=== PATIENT | male | born 1970 | race Caucasian/White ===

== ENCOUNTER 2017-02-26 16:52 | Inpatient (IN) | payer OTHER, MEDICAID ==
--- NOTE | 2017-02-26 16:55 | EDPHY ---
Mental Health General Narrative: CHIEF COMPLAINT: M1 hold HISTORY OF PRESENT ILLNESS: 46-year-old male presents emergency department with police on an M1 hold. Patient's father called the police to do a welfare check on his son. He has a history of mental illness and recent hospitalization to [facility]. He has not talked to his son in several days which is unusual. Police found the patient up in [place]. He is rambling, not making sense, appears to be gravely disabled per police. Patient is very anxious on my exam. He reports a strong smell of nail Upper Sor[place] that he has had for the last several days, he does not answer my question when asked about auditory and visual hallucinations. He denies suicidal ideations. He denies drug or alcohol use, no cigarette smoking. REVIEW OF SYSTEMS: Unable to obtain due to mental status Physical Exam Gen: Awake, disheveled, oriented HEENT: PERRL, dry mucous membranes NECK: no meningismus CV: regular rate and regular rhythm PULM: CTAB, no wheezes ABDOMEN: soft, non tender to palpation, BS present BACK: No CVA tenderness NEURO: Follows commands, no facial asymmetry, moves all extremities EXTREMITIES: normal appearing SKIN: no rash or break in skin on exposed skin PSYCH: Anxious, nonsensical. Previous Psychiatric History: previous inpatient psychiatric admission, schizophrenia, bipolar History Review: I obtained additional history from the patient's family Smoking Status: Never smoked Time Patient Placed on M1 Hold: 16:50 Medical Decision Making: Pt has been evaluated by [facility]. He will be hospitalized for psychiatric stabilization. Pt accepted at [address] [place] [address]. Time Medically Cleared for Psychiatric Evaluation: 19:00 Time Accepted for Transfer to Inpatient Psychiatric Care: 22:15 Course: awaiting transfer to inpatient facility - Objective Vital Signs: Initial Vital Signs Temperature (C) 36.5 C 02/26/17 16:53 Heart Rate 86 02/26/17 16:53 Respiratory Rate 16 02/26/17 16:53 Blood Pressure 121/95 H 02/26/17 16:53 O2 Sat (%) 96 02/26/17 16:53 O2 Delivery Mode Room Air Allergies/Adverse Reactions: No Known Allergies Allergy (Unverified 02/26/17 17:00) Home Medications: Medication Instructions Recorded clonazePAM [Klonopin (RX)] 0.5 mg PO TID 11/12/12 Medications Given: Discontinued Medications Acetaminophen (Tylenol) 1,000 mg PO EDNOW ONE Stop: 02/26/17 19:29 Last Admin: 02/26/17 19:37 Dose: 1,000 mg Lidocaine (Lidoderm 5%) 1 ea TD EDNOW ONE Stop: 02/26/17 19:29 Last Admin: 02/26/17 19:37 Dose: 1 ea Laboratory Results: Laboratory Results 02/26/17 17:17 02/26/17 17:17 02/26/17 02/26/17 02/26/17 17:23 17:17 17:17 WBC 7.44 10^3/uL 10^3/uL (3.80-9.50) RBC 4.67 10^6/uL 10^6/uL (4.40-6.38) Hgb 15.3 g/dL g/dL (13.7-17.5) Hct 42.6 % % (40.0-51.0) MCV 91.2 fL fL (81.5-99.8) MCH 32.8 pg pg (27.9-34.1) MCHC 35.9 g/dL g/dL (32.4-36.7) RDW 12.5 % % (11.5-15.2) Plt Count 218 10^3/uL 10^3/uL (150-400) MPV 11.1 fL fL (8.7-11.7) Neut % (Auto) 66.4 % % (39.3-74.2) Lymph % (Auto) 21.8 % % (15.0-45.0) Garrard % (Auto) 9.9 % % (4.5-13.0) Eos % (Auto) 1.1 % % (0.6-7.6) Baso % (Auto) 0.7 % % (0.3-1.7) Nucleat RBC Rel Count 0.0 % % (0.0-0.2) Absolute Neuts (auto) 4.94 10^3/uL 10^3/uL (1.70-6.50) Absolute Lymphs (auto) 1.62 10^3/uL 10^3/uL (1.00-3.00) Absolute Monos (auto) 0.74 10^3/uL 10^3/uL (0.30-0.80) Absolute Eos (auto) 0.08 10^3/uL 10^3/uL (0.03-0.40) Absolute Basos (auto) 0.05 10^3/uL 10^3/uL (0.02-0.10) Absolute Nucleated RBC 0.00 10^3/uL 10^3/uL (0-0.01) Immature Gran % 0.1 % % (0.0-1.1) Immature Gran # 0.01 10^3/uL 10^3/uL (0.00-0.10) Sodium 139 mEq/L mEq/L (134-144) Potassium 3.6 mEq/L mEq/L (3.5-5.2) Chloride 104 mEq/L mEq/L (97-110) Carbon Dioxide 15 mEq/l L mEq/l (22-31) Anion Gap 20 mEq/L H mEq/L (8-16) BUN 17 mg/dL mg/dL (7-23) Creatinine 0.8 mg/dL mg/dL (0.7-1.3) Estimated GFR > 60 Glucose 85 mg/dL mg/dL (70-100) Calcium 9.7 mg/dL mg/dL (8.5-10.4) Urine Opiates Screen NEGATIVE (NEGATIVE) Urine Barbiturates NEGATIVE (NEGATIVE) Ur Phencyclidine Scrn NEGATIVE (NEGATIVE) Ur Amphetamine Screen NEGATIVE (NEGATIVE) U Benzodiazepines Scrn NEGATIVE (NEGATIVE) Urine Cocaine Screen NEGATIVE (NEGATIVE) U Marijuana (THC) Screen NEGATIVE (NEGATIVE) Ethyl Alcohol < 10 mg/dL mg/dL (0-10) Departure - Departure Disposition: [facility] IP Clinical Impression: Acute psychosis Condition: Fair Referrals: Patient,NotPresent [Primary Care Provider] - As per Instructions
[2017-02-26 17:49] LABS: % IMMATURE GRANULYOCYTES 0.1 % (0.0-1.1); ABSOLUTE IMMATURE GRANULOCYTES 0.01 10^3/uL (0.00-0.10); ADD DIFF? NO; ADD MORPH? NO; ADD SCAN? NO; ATYPICAL LYMPHOCYTE FLAG 10 (0-99); FRAGMENT RBC FLAG 0 (0-99); HEMATOCRIT 42.6 % (40.0-51.0); HEMOGLOBIN 15.3 g/dL (13.7-17.5); LEFT SHIFT FLG 0 (0-99); LIPEMIA HEMOLYSIS FLAG 90 (0-99); MEAN CELL HEMOGLOBIN 32.8 pg (27.9-34.1); MEAN CELL HEMOGLOBIN CONCENTR. 35.9 g/dL (32.4-36.7); MEAN CELL VOLUME 91.2 fL (81.5-99.8); MEAN PLATELET VOLUME 11.1 fL (8.7-11.7); PLATELET CLUMPS FLAG 0 (0-99); PLATELET COUNT 218 10^3/uL (150-400); RED BLOOD CELL COUNT 4.67 10^6/uL (4.40-6.38); RED CELL DISTRIBUTION WIDTH 12.5 % (11.5-15.2)
[2017-02-26 18:08] LABS: ANION GAP 20 mEq/L (8-16); CALCIUM 9.7 mg/dL (8.5-10.4); CARBON DIOXIDE 15 mEq/l (22-31); CHLORIDE 104 mEq/L (97-110); CREATININE 0.8 mg/dL (0.7-1.3); ETHANOL SERUM < 10 mg/dL (0-10); GLOMERULAR FILTRATION RATE > 60; GLUCOSE 85 mg/dL (70-100); POTASSIUM 3.6 mEq/L (3.5-5.2); SODIUM 139 mEq/L (134-144)
[2017-02-26] MEDS ORDERED: LIDOCAINE 5% 1 EA PATCH TD ONE (19:28)
[2017-02-26] MEDS ORDERED: ACETAMINOPHEN 500 MG TAB PO ONE (19:28)
[2017-02-26] MEDS ORDERED: PATCH REMOVAL 1 EA PATCH TD SCH (21:00)
[2017-02-26] MEDS ORDERED: OLANZapine DISINTEGR 5 MG TAB PO ONE (22:09)
[2017-02-27] MEDS ORDERED: MAGNESIUM HYDROXIDE 30 ML UDCUP PO PRN (00:30)
[2017-02-27] MEDS ORDERED: MAG HYDROX/AL HYDROX/SIMETH 30 ML UDCUP PO PRN (00:30)
[2017-02-27] MEDS ORDERED: NICOTINE POLACRILEX 2 MG GUM B PRN (00:30)
[2017-02-27] MEDS ORDERED: OLANZapine DISINTEGR 10 MG TAB PO PRN (00:31)
[2017-02-27] MEDS ORDERED: PATCH REMOVAL 1 EA PATCH TD ONE ×2 (08:00)
[2017-02-27] MEDS: ACETAMINOPHEN 325 MG TAB PO PRN (10:53)
[2017-02-27] MEDS: OLANZapine DISINTEGR 10 MG TAB PO SCH (19:41)
--- NOTE | 2017-02-27 19:43 | BCON ---
[f rep st] BEHAVIORAL HEALTH CONSULTATION INTERNAL MEDICINE CONSULTATION REFERRING PHYSICIAN: Dr. Castaneda REASON FOR REFERRAL: Medical clearance for inpatient behavioral health stay. HISTORY OF PRESENT ILLNESS: The patient was found by police in [facility] and not making sense. The police judged him to be gravely disabled. They had been called by his father for a welfare check. He had had a recent psychiatric hospitalization at [facility]. He was evaluated in the emergency department by the mental health team and admitted for further psychiatric care. He is currently without any medical complaints though he reports he had an episode of chest tightness this morning when he got up. He does not furnish anymore details regarding the episode. PAST MEDICAL HISTORY: 1. Mental health issues with diagnoses of schizoaffective disorder and bipolar disorder in the chart. 2. History of alcohol and cocaine abuse. 3. History of cervical degenerative disk disease. PAST SURGICAL HISTORY: 1. C5-C6 cervical fusion. 2. Bilateral knee anterior cruciate ligament reconstructions. MEDICATIONS: He has been noncompliant with psychiatric medications. SOCIAL HISTORY: He is a nonsmoker and not currently using alcohol so far as can be gleaned from the medical records. He is currently homeless and living out of his truck. He has been employed doing [employer] work in the past. FAMILY HISTORY: Noncontributory. ALLERGIES: There are no known drug allergies. REVIEW OF SYSTEMS: Very limited. He reports episode of chest tightness this morning. He denies pain. He denies current dyspnea, cough, chest pain, or palpitations. Otherwise, a 10-point review of systems to the extent that it could be obtained was unremarkable. PHYSICAL EXAM: VITAL SIGNS: Blood pressure is 122/84, heart rate is 72, respiratory rate is 16, oxygen saturation is 95% on room air. Temperature is 36.7 degrees centigrade. His weight is 74.8 kg for a body mass index of 24.4. GENERAL: This is a well-nourished, well-developed man, wearing a green suicide smock, cooperative and in no acute distress but appearing distracted possibly by internal stimulation and with very little speech. HEENT: Extraocular movements are intact. Pupils are equal, round, and reactive to light. Mucous membranes are moist. Dentition is in good condition. Airway is uncrowded, Mallampati class 1. NECK: Supple. HEART: There is a regular rate and rhythm with no murmurs, rubs, or gallops. LUNGS: Clear to auscultation bilaterally. ABDOMEN: Soft, nontender, nondistended with normoactive bowel sounds. EXTREMITIES: There is no cyanosis, clubbing, or edema. Radial and dorsalis pedis pulses are 2+ bilaterally. NEUROLOGIC: He is alert, unable to systems checkout mechanic orientation. He follows commands. Cranial nerves 2-12 are grossly intact. There is no focal weakness. Sensation is intact to light touch and gait is within normal limits. There is no pronator drift. SKIN: There is a laceration on his left great toe on the dorsal aspect, approximately 2 cm proximal to the toenail and 0.5 cm distal to the toenail. The nail is intact and there is no bruising under the nail. There is no erythema and no drainage. LABORATORY STUDIES: Drawn in the emergency department. CBC was entirely within normal limits. Serum chemistry revealed a low carbon dioxide at 15 with an elevated anion gap of 20. Otherwise, renal function and electrolytes were within normal limits. Toxicology screen in the serum was negative for ethyl alcohol and in the urine was negative for any substances of abuse. Labs were drawn at [facility] with the results in the [facility] database. Early to mid January, serum chemistry was notable for dyslipidemia with cholesterol of 246, LDL of 189 and HDL of 40. TSH at that time was normal at 0.795. ASSESSMENT AND RECOMMENDATIONS: 1. Mental health issues, pending further evaluation and management per Psychiatry and the mental health team. 2. Altered mental status. If his attention and communication do not improve with psychiatric care, might consider a head CT; however, his neurologic exam otherwise is quite normal with no findings consistent with an intracranial mass. 3. Dyslipidemia. By [place] criteria, his 10-year cardiovascular risk is 4 % to 7% so it is unclear whether or not he would benefit from a cholesterol lowering medication. In any case, until his psychosocial situation is stabilized, it is unclear whether he would be compliant. Advise followup after discharge with the primary care provider. Unclear what to make of his episode of chest tightness this morning as further history is unobtainable. If he did have existing coronary artery disease the indication to treat cholesterol would be different. Consider an EKG if he has recurrent symptoms. 4. Left great toe laceration. There are no signs or symptoms of infection. Expect it to continue to heal and advise covering it with a bandage and inspecting it every day with a dressing change to observe for any signs or symptoms of infection. I see no medical contraindications to the patient's continued stay on the inpatient behavioral health unit or to any psychiatric medications or procedures. Thank you very much for including me in the care of the patient and please do not hesitate to contact me or the hospitalist service should there be need for further medical evaluation. /[id number]/MODL MTDD
--- NOTE | 2017-02-27 19:58 | BAPA ---
[f rep st] ADMITTING PSYCHIATRIC ASSESSMENT Corrected report DATE OF ADMISSION: 02/26/2017 CHIEF COMPLAINT: "I am here because my back hurts. I called my mom and dad and I have been having a hard time at work." HISTORY OF PRESENT ILLNESS: The patient is a 46-year-old single, unemployed, male brought into [facility] ED after being found in [place]. He was unable to appropriately communicate and appeared to be disoriented, confused, unable to answer simple questions. The [facility] placed the patient on M1 due to being gravely disabled. The patient was unable to answer questions posed, therefore most of the information provided in the ED report was obtained by the patient's father. The patient's father was the one who called the police to do a welfare check on his son. According to the father, the patient has a history of mental illness and recent hospitalization at [facility]. Father had not talked to his son in several days. Upon examination in the ED, the patient was very anxious. He reports smelling nail romanian for the past several days. He did not want to answer questions when asked about auditory and visual hallucinations, though he did deny suicidal ideations. He also denied any drug or alcohol use and cigarette smoking. When psychiatrist met with the patient on the unit, he was similarly disinclined to engage. He was uncooperative. MD asked patient several times if he would be willing to sit down and answer a few questions. Patient said, "I don't have time to talk to you." Other times he was pacing restlessly on the unit and he was repeatedly shuffling the newspaper and carrying it from his room back and forth to the dining room. When MD tried to intervene to interview patient, he got up abruptly and left the dining area and went back to his room, turned around, and said, "I don't want to talk to you now, go away." Most of the information in this psychiatric assessment comes from medical record, including the [facility] triage evaluation that was done in the [facility] ED, as well as from the emergency department report by the ED physician, Marcy Kam. During his triage assessment, when asked regarding mental health diagnosis, medications, and hospitalizations, Father told the [facility] access rep that patient was originally diagnosed with bipolar disorder, then within the last few years he was diagnosed with schizoaffective disorder. Father recently had the patient hospitalized at [facility]. He was released just prior to the 16 of February weekend after 10-12 days of inpatient treatment. Father stated he had numerous hospitalizations in the past. PAST PSYCHIATRIC HISTORY: Father states that the patient has been hospitalized numerous times; however, he was not able to provide the name of any hospitals or dates except the [facility] admission which happened at the end of January and patient was discharged just prior to the 16 of February. Father did know that the patient attended treatment as an outpatient for a short period of time but says, "But I don't know anything about that right now." When asked about hallucinations and delusions, Father denied a history of violence and denied homicidal ideations or thoughts. Patient states he "has nothing" in regard to a psychiatrist, therapist, or any medications at home. Father states that the patient was prescribed medications numerous times, including upon his release from [facility]; however, the patient has not been taking his medications. Father could not remember the names or dosages of any of the medications that the patient was given upon discharge from [facility]. Father also said that the patient has been given medications for cholesterol and high blood pressure in the past, as well as "some mood stabilizers". Neither the patient nor Father could remember the names of any of his current or recent medications. Patient states that he has not been able to sleep for 3 days. When asked about changes in weight or appetite, patient says, "I don't care." Father states that patient would be noncompliant for medications due to weight gain in the past. ALLERGIES: In regard to allergies, patient says, "Not that I know of." Patient denied any allergies. Father stated that he was unaware of any allergies. CURRENT MEDICATIONS: Patient was recently prescribed medications during his hospitalization at [facility] and discharged prior to the 16 of February. On "a couple of mood stabilizers", according to Father, but neither Father nor patient can remember the names or doses of any of his medications. PAST MEDICAL HISTORY: When asked about previous medical or surgical history, patient stated, "I don't know." When asked about medical or surgical concerns, patient denied anything, although according to the ED physician, patient did report chronic back pain and was given a lidocaine patch in the ED for that, but that is not a usual prescription that the patient takes. SUBSTANCE USE HISTORY: Patient denied alcohol and drug use. Denied cigarette smoking. Father stated that the patient "drinks a couple of beers now and then ". FAMILY HISTORY: Father stated that patient's biological mother and father are . Patient reported 1 brother. When asked about psychiatric and substance abuse history in the family, patient says, "I don't know of that." SOCIAL HISTORY: Patient was not forthcoming with personal information in the emergency department, but Father was able to state that patient grew up in a home with his biological mother and father and 1 brother. The patient's biological father and mother are currently . Father states that patient was "normal until around 21 years old". However, Father stated that patient has reported noticing issues with his mental health when he was in high school. Patient is single and does not have any biological children. Father noted that "he does not have any trouble with getting a girlfriend". Patient is currently living with his father; however, the father stated that he does not live with the patient and the father states that the patient has been living out of the patient's truck since he was asked to leave the room he was renting for not being able to pay rent. Father says that the patient was supposed to move in with him for a few days after being released from [facility]; however, instead the patient left and went back to [facility] and has been living out of his truck. Father called the [facility]'s Department to do a welfare check and they found the patient in [place] in the conditions that he was brought to the ED. The patient states he does not have any support system other than his father. He states he has been "isolated" for a long time and "it has been too long since I have talked to my friends". Father states that the patient had been camping with friends over the 16 of February weekend and that might have been why he was in [place]. EDUCATIONAL HISTORY: Patient attained his high school diploma. WORK HISTORY: Patient originally stated that he has been having a hard time at work. He then stated that he was looking for part-time work and was currently unemployed. 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 LEGAL HISTORY: Patient denied any arrests or legal charges. SCIENTOLOGY AND SPIRITUAL: Patient reports "I used to go to [employer] a lot." ADMISSION LABS: Patient was afebrile, his heart rate was 86, respiratory rate was 16, blood pressure was 121/95. His white cell count was 7.44, hemoglobin was 15.3, hematocrit was 43.6, platelet count was 218. Sodium was 139, potassium was 3.6, chloride was 104, BUN was 17, creatinine was 0.8. His urine toxicology screen was negative for everything. His blood alcohol level was less than 10. MENTAL STATUS EXAMINATION: Patient presents disheveled, unkempt. He is wearing a green hospital gown. He is pacing restlessly, will not stop or make direct eye contact. Refuses to engage with the MD interviewer despite repeated requests to sit down and talk. Patient says, "I don't have time for you, go away." His affect is irritable, labile, anxiety. Mood congruent. When asked about his mood, patient says "I'm okay." Thought process is disorganized, confused, nonsensical. Speech is tangential, illogical. Thought content, unable to assess although patient does deny SI/HI. Does not respond to any questions regarding active psychotic symptoms. Insight is poor and judgment is impaired. IMPRESSION: This is a 46-year-old male who presented to the emergency department on 02/26/2017, placed on an M1 hold by the [facility] Department. Patient was recently discharged from [facility] [place], where he was treated for 10-12 days for schizoaffective disorder and placed on multiple mood stabilizers, according to his father. Upon discharge, the patient went off his medications, decompensated, and was found wondering aimlessly and disorganized, confused, talking nonsensically in [place] and brought to the emergency department. Patient has been uncooperative and refusing to answer questions, both in the emergency department and during his first day on the inpatient unit. Schizoaffective disorder, financial problems, marginal support, family conflict , homeless, recent loss of job. PLAN: 1. Admit to behavioral health service inpatient unit on an M1 hold. 2. Monitor for safety and place on suicide precautions. 3. Patient was given 1 dose of Zyprexa in the ED for agitation and confusion secondary to apparent psychosis. Will order scheduled dose of Zyprexa 10 mg p.o. at bedtime. Continue with p.r.n. medications including Ativan 1 mg p.o. q.4 hours p.r.n. for anxiety, agitation, and psychosis, as well as Zyprexa Zydis 5 mg p.o. q.4 hours p.r.n. for agitation, psychosis, not to exceed a total daily dose of 30 mg of Zyprexa. 4. Patient will be engaged in individual, group, and milieu therapies as well as ongoing clinical interviews in order to further identify causes of his recent acute decompensation and the most appropriate treatment. 5. Will request medical records from [facility] since he had a recent 2- week hospitalization there. It will be helpful to know how quickly patient is able improve and what the most effective treatments have been. Family so far has been the only collateral source of information, but his father has limited knowledge and cannot remember any of the medications or treatments he received at [facility] and it sounds like has intermittent contact with the patient in recent weeks. Will ask the youth career specialist to follow up with the patient's father and see if he is able to provide any more information. 6. Estimated length of stay is 5-7 days, although patient had a longer hospitalization at [facility] so it may require a longer period of time for him to achieve sufficient stability to be discharged into the community. Will need to solidify an aftercare plan since the patient has a history of noncompliance and recent decompensation following recent discharge. We will work to getting him established with outpatient providers as a solid support. /[id number]/MODL Val worktype, 03/01/17, george MILLER
--- NOTE | 2017-02-28 16:19 | SOAPPROG ---
SOAP Progress Note Assessment/Plan: Assessment: 02/28/17 16:19 Plan: Patient continues to present with AMS, confused, disoriented, unwilling to talk or interact with MD or staff. He refused his Zyprexa last HS, but slept 13+ hrs last night. He has superficial lacs on right foot that are healing. 1. RN to dress wounds as needed. Patient c/o pain in foot this AM, but not this afternoon. 2. Continue to offer Zyprexa for psychosis. 3. Request records from [facility] about recent hospitalization. 4. business continuity coordinator to talk to [facility] for collateral information. Subjective: Patient is seated on couch in common area dressed in hospital scrubs. He has his right foot in tub of water covered with towel. Earlier he c/o pain in this foot d/t superficial lacerations that are healing. There are no signs of infection, no redness, swelling. When MD asked patient if his foot was feeling better, he did not initially respond, and did not make eye contact. 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 After a few minutes, patient said, "I need to find my licenses." Then he added, "did I say licenses or glasses?" to no one in particular. Objective: Vital Signs Temp Pulse Resp BP Pulse Ox 36.8 C 70 12 121/76 H 95 02/28/17 06:00 02/28/17 06:00 02/28/17 06:00 02/28/17 06:00 02/28/17 06:00 MSE: Pt is dressed in hospital gown, extremely guarded and unwilling to answer MD questions. Affect: Constricted Mood: No response TP: disorganized, confused , minimal responsiveness TC: Unable to assess Insight/Judgment: Impaired - Time Spent With Patient Time Spent With Patient: 15" - Pending Discharge Pending Discharge Within 24 Hours: No ICD10 Worksheet Patient Problems: Problems Problem Status Onset Acute psychosis Acute Cannabis dependence in controlled environment Acute - ICD10 Problem Qualifiers (1) Cannabis dependence in controlled environment
[2017-02-28] MEDS: OLANZapine DISINTEGR 10 MG TAB PO SCH (19:40)
--- NOTE | 2017-03-01 13:53 | SOAPPROG ---
SOAP Progress Note Assessment/Plan: Assessment: 02/28/17 16:19 Plan: Patient continues to present with AMS, confused, disoriented, unwilling to talk or interact with MD or staff. He refused his Zyprexa last HS, but slept 13+ hrs last night. He has superficial lacs on right foot that are healing. 1. RN to dress wounds as needed. Patient c/o pain in foot this AM, but not this afternoon. 2. Continue to offer Zyprexa for psychosis. 3. Request records from [facility] about recent hospitalization. 4. grievance coordinator to talk to [facility] for collateral information. 03/01/17 13:47 Plan: 1. Patient says he wants to "decline" all psych meds. He admits he has taken Zyprexa in past and he says his MOC recommends this med because she thinks it works for him. However, he is unwilling to take it in hospital. 2. Patient says he has seen Dr. Flores in past, but can't remember an outpatient psych MD. He has gotten care at the [facility], but reports no medical conditions currently. 3. Will try to encourage patient to start on SGA SONYA. He seems much less paranoid AEB his willingness to talk to MD today. Subjective: Patient is dressed in hospital gown, his hair is long and falls over his face. He presents much less paranoid, restless and avoidant today. He actually stands at nursing station and interacts for MD much longer than he has ever done since admission. He answers several questions with lucid, thoughtful answers. He can relate going to [facility] and presenting his Medicaid card. He can remember Dr. Flores's name, though he's confused about which MD's he's seen in hospital and in community. He knows that his MOC thinks Zyprexa is "good for me." But when MD asks if he'd be willing to take some medicine now, he says, "No ," and adds, "I'd like to decline my medicine." He denies any AH/VH and SI/HI at current time. Objective: Vital Signs Temp Pulse Resp BP Pulse Ox 36.8 C 70 12 121/76 H 95 02/28/17 06:00 02/28/17 06:00 02/28/17 06:00 02/28/17 06:00 02/28/17 06:00 MSE: Dressed in scrubs, fairly well groomed, polite, speaks in quiet voice, much more willing to engage with MD today. Affect: Flat Mood: "OK" TP: More linear and organized today TC: Denies AH/VH, SI/HI, still paranoid about taking meds and Insight/Judgment: Poor/Impaired - Time Spent With Patient Time Spent With Patient: 20" - Pending Discharge Pending Discharge Within 24 Hours: No ICD10 Worksheet Patient Problems: Problems Problem Status Onset Acute psychosis Acute Cannabis dependence in controlled environment Acute - ICD10 Problem Qualifiers (1) Cannabis dependence in controlled environment
[2017-03-01] MEDS ORDERED: BACITRACIN OINTMENT 1 PACKET TP ONE (17:26)
[2017-03-01] MEDS: ACETAMINOPHEN 325 MG TAB PO PRN (20:40)
[2017-03-01] MEDS: OLANZapine DISINTEGR 10 MG TAB PO SCH (20:43)
--- NOTE | 2017-03-02 12:41 | SOAPPROG ---
SOAP Progress Note Assessment/Plan: Assessment: 02/28/17 16:19 Plan: Patient continues to present with AMS, confused, disoriented, unwilling to talk or interact with MD or staff. He refused his Zyprexa last HS, but slept 13+ hrs last night. He has superficial lacs on right foot that are healing. 1. RN to dress wounds as needed. Patient c/o pain in foot this AM, but not this afternoon. 2. Continue to offer Zyprexa for psychosis. 3. Request records from [facility] about recent hospitalization. 4. conference center coordinator to talk to [facility] for collateral information. 03/01/17 13:47 Plan: 1. Patient says he wants to "decline" all psych meds. He admits he has taken Zyprexa in past and he says his [facility] [place] med because she thinks it works for him. However, he is unwilling to take it in hospital. 2. Patient says he has seen Dr. Flores in past, but can't remember an outpatient psych MD. He has gotten care at the [facility], but reports no medical conditions currently. 3. Will try to encourage patient to start on SGA SONYA. He seems much less paranoid AEB his willingness to talk to MD today. 03/02/17 12:37 Plan: 1. Patient states he is willing to take Zyprexa in AM. Will give first dose now. 2. Patient denies any c/o physical issues, no more c/o pain in foot. Subjective: Met with patient and discussed with staff. Patient was participating in group this AM, though he was having trouble focusing and was only minimally engaged. When MD met with patient, he was still confused and disorganized, but much less paranoid and restless than previous days. He thought MD was going to talk " about insurance" and seemed confused when MD explained who he was (even though patient has met MD every day since admission). Patient did agree to take Zyprexa for his psychosis, but said he preferred to take it in AM. He agreed to first dose now. Objective: Vital Signs Temp Pulse Resp BP Pulse Ox 36.8 C 70 12 121/76 H 95 02/28/17 06:00 02/28/17 06:00 02/28/17 06:00 02/28/17 06:00 02/28/17 06:00 MSE: Thin, wearing hospital scrubs, less restless and distracted by int/ext stim. Affect: Blunt Mood: "OK" TP: Disorganized, tangential TC: Denies AH/VH , appears less paranoid AEB willingness to participate in milieu therapy and engage with staff Insight/Judgment: Impaired/Impaired - Time Spent With Patient Time Spent With Patient: 15" - Pending Discharge Pending Discharge Within 24 Hours: No ICD10 Worksheet Patient Problems: Problems Problem Status Onset Acute psychosis Chronic Cannabis dependence in controlled environment Chronic Schizophrenia, disorganized Chronic - ICD10 Problem Qualifiers (1) Cannabis dependence in controlled environment (2) Schizophrenia, disorganized (3) Acute psychosis
[2017-03-02] MEDS: OLANZapine DISINTEGR 10 MG TAB PO SCH (15:14)
[2017-03-03] MEDS: OLANZapine DISINTEGR 10 MG TAB PO SCH (08:43)
--- NOTE | 2017-03-03 11:48 | SOAPPROG ---
SOAP Progress Note Assessment/Plan: Assessment: 02/28/17 16:19 Plan: Patient continues to present with AMS, confused, disoriented, unwilling to talk or interact with MD or staff. He refused his Zyprexa last HS, but slept 13+ hrs last night. He has superficial lacs on right foot that are healing. 1. RN to dress wounds as needed. Patient c/o pain in foot this AM, but not this afternoon. 2. Continue to offer Zyprexa for psychosis. 3. Request records from [facility] about recent hospitalization. 4. real estate services coordinator to talk to [facility] for collateral information. 03/01/17 13:47 Plan: 1. Patient says he wants to "decline" all psych meds. He admits he has taken Zyprexa in past and he says his [facility] recommends this med because she thinks it works for him. However, he is unwilling to take it in hospital. 2. Patient says he has seen Dr. Flores in past, but can't remember an outpatient psych MD. He has gotten care at the [facility], but reports no medical conditions currently. 3. Will try to encourage patient to start on SGA SONYA. He seems much less paranoid AEB his willingness to talk to MD today. 03/02/17 12:37 Plan: 1. Patient states he is willing to take Zyprexa in AM. Will give first dose now. 2. Patient denies any c/o physical issues, no more c/o pain in foot. 03/03/17 11:45 1. Continue with Zyprexa. Patient took medication for first time yesterday and this AM. 2. CC to arrange intake referral to [facility]. He may have been open with [facility] in past , liaison will check for previous records. Subjective: Met with patient and discussed with staff. Patient attended group this AM. He has shown more willingness to participate in groups and engage with MD as well as other staff more in the past 2 days. He is responsive to MD's questions, but is still disorganized and becomes easily derailed in conversation. He becomes confused at times and MD will have to repeat his questions, however, patient maintains eye contact and focus for longer periods of time than at admission. He denies any AH/VH when asked and denies any SI/HI. Objective: Vital Signs Temp Pulse Resp BP Pulse Ox 36.6 C 76 12 128/82 H 99 03/03/17 06:00 03/03/17 06:00 03/03/17 06:00 03/03/17 06:00 03/03/17 06:00 MSE: Calm, cooperative, wearing [facility] gown. Affect: Blunted Mood: "OK " TP: Disorganized, circumstantial TC: Denies AH/VH, SI/HI Insight/Judgment: Poor/Impaired - Time Spent With Patient Time Spent With Patient: 15" - Pending Discharge Pending Discharge Within 24 Hours: No ICD10 Worksheet Patient Problems: Problems Problem Status Onset Acute psychosis Chronic Cannabis dependence in controlled environment Chronic Schizophrenia, disorganized Chronic - ICD10 Problem Qualifiers (1) Cannabis dependence in controlled environment (2) Schizophrenia, disorganized (3) Acute psychosis
[2017-03-04] MEDS: OLANZapine DISINTEGR 10 MG TAB PO SCH (08:17)
--- NOTE | 2017-03-04 12:37 | SOAPPROG ---
SOAP Progress Note Assessment/Plan: Assessment: 02/28/17 16:19 Plan: Patient continues to present with AMS, confused, disoriented, unwilling to talk or interact with MD or staff. He refused his Zyprexa last HS, but slept 13+ hrs last night. He has superficial lacs on right foot that are healing. 1. RN to dress wounds as needed. Patient c/o pain in foot this AM, but not this afternoon. 2. Continue to offer Zyprexa for psychosis. 3. Request records from [facility] about recent hospitalization. 4. patient relations coordinator to talk to [facility] for collateral information. 03/01/17 13:47 Plan: 1. Patient says he wants to "decline" all psych meds. He admits he has taken Zyprexa in past and he says his [facility] [place] this med because she thinks it works for him. However, he is unwilling to take it in hospital. 2. Patient says he has seen Dr. Flores in past, but can't remember an outpatient psych MD. He has gotten care at the [facility], but reports no medical conditions currently. 3. Will try to encourage patient to start on SGA SONYA. He seems much less paranoid AEB his willingness to talk to MD today. 03/02/17 12:37 Plan: 1. Patient states he is willing to take Zyprexa in AM. Will give first dose now. 2. Patient denies any c/o physical issues, no more c/o pain in foot. 03/03/17 11:45 1. Continue with Zyprexa. Patient took medication for first time yesterday and this AM. 2. CC to arrange intake referral to [facility]. He may have been open with [facility] in past , liaison will check for previous records. 03/04/17 12:33 Plan: 1. Patient has been compliant with meds x 48 hrs. 2. CCM 3. Will arrange f/u appts with [facility]. According to records he was last open with [facility] in 2014. Records received from [facility] indicate patient was last hopsitalized there in 03/2013. At that time he was stabilized on Risperdal 2mg QHS. 4. Likely d/c in 5-7 days. Subjective: Met with patient and discussed with staff. Patient has brighter affect, actually smiled during interview at one point. He says, "I'm improving" but can' t provide any details. He says he "needs a place to stay" but says he won't stay in a [facility]. MD asks if patient has friends or anyone where he can stay, but he says, "I don't know, I'd have to do a lot of calling to find out." This represents much clearer thought process than patient has demonstrated prior to today. He says he would be willing to f/u with outpatient providers through [facility] to make sure "meds were proper." He denies any AH/VH, SI/HI. Objective: Vital Signs Temp Pulse Resp BP Pulse Ox 36.6 C 76 12 128/82 H 99 03/03/17 06:00 03/03/17 06:00 03/03/17 06:00 03/03/17 06:00 03/03/17 06:00 MSE: Thin, wearing T-shirt and street clothes. Affect: Less blunted Mood: "Better" TP: More organized, but still lacks clarity TC: Denies AH/VH, no SI/ HI Insight/Judgment: Fair/Poor - Time Spent With Patient Time Spent With Patient: 25" - Pending Discharge Pending Discharge Within 24 Hours: No ICD10 Worksheet Patient Problems: Problems Problem Status Onset Acute psychosis Chronic Cannabis dependence in controlled environment Chronic Schizophrenia, disorganized Chronic - ICD10 Problem Qualifiers (1) Cannabis dependence in controlled environment (2) Schizophrenia, disorganized (3) Acute psychosis
[2017-03-05] MEDS: LORazepam 0.5 MG TAB PO PRN (03:53)
[2017-03-05] MEDS: OLANZapine DISINTEGR 10 MG TAB PO PRN (03:53)
[2017-03-05] MEDS: OLANZapine DISINTEGR 10 MG TAB PO SCH ×2 (08:12→08:29)
--- NOTE | 2017-03-05 13:56 | SOAPPROG ---
SOAP Progress Note Assessment/Plan: Assessment: 02/28/17 16:19 Plan: Patient continues to present with AMS, confused, disoriented, unwilling to talk or interact with MD or staff. He refused his Zyprexa last HS, but slept 13+ hrs last night. He has superficial lacs on right foot that are healing. 1. RN to dress wounds as needed. Patient c/o pain in foot this AM, but not this afternoon. 2. Continue to offer Zyprexa for psychosis. 3. Request records from [facility] about recent hospitalization. 4. fashion coordinator to talk to [facility] for collateral information. 03/01/17 13:47 Plan: 1. Patient says he wants to "decline" all psych meds. He admits he has taken Zyprexa in past and he says his [facility] recommends this med because she thinks it works for him. However, he is unwilling to take it in hospital. 2. Patient says he has seen Dr. Flores in past, but can't remember an outpatient psych MD. He has gotten care at the [facility], but reports no medical conditions currently. 3. Will try to encourage patient to start on SGA SONYA. He seems much less paranoid AEB his willingness to talk to MD today. 03/02/17 12:37 Plan: 1. Patient states he is willing to take Zyprexa in AM. Will give first dose now. 2. Patient denies any c/o physical issues, no more c/o pain in foot. 03/03/17 11:45 1. Continue with Zyprexa. Patient took medication for first time yesterday and this AM. 2. CC to arrange intake referral to [facility]. He may have been open with [facility] in past , liaison will check for previous records. 03/04/17 12:33 Plan: 1. Patient has been compliant with meds x 48 hrs. 2. CCM 3. Will arrange f/u appts with [facility]. According to records he was last open with [facility] in 2014. Records received from [facility] indicate patient was last hopsitalized there in 03/2013. At that time he was stabilized on Risperdal 2mg QHS. 4. Likely d/c in 5-7 days. 03/05/17 13:52 Plan: 1. Patient did refuse his AM dose of Zyprexa b/c he took a PRN dose last night. He said he "didn't need another dose." Otherwise, patient has been compliant with medications. 2. CCM 3. D/C to [facility] appt next week once scheduled. Subjective: Met with patient and discussed with staff. Patient has been attending groups on unit, and is showing more sustained focus and ability to engage in interactions with staff, MD and during groups. He can maintain eye contact and answer questions briefly for longer periods of time without the reponse latency and though blocking that were present earlier in admission. He continues to deny any AH/VH, paranoia, delusions and SI/HI. Objective: Vital Signs Temp Pulse Resp BP Pulse Ox 36.6 C 76 12 128/82 H 99 03/03/17 06:00 03/03/17 06:00 03/03/17 06:00 03/03/17 06:00 03/03/17 06:00 MSE: Thin, wearing green hospital scrubs. Affect: Blunted Mood: "OK" TP: More organized and coherent, but still has some response delay, not nearly as pronounced as at admission TC: Denies AH/VH, paranoia, delusions, SI/HI Insight/Judgment: Poor/Impaired - Time Spent With Patient Time Spent With Patient: 15" - Pending Discharge Pending Discharge Within 24 Hours: No ICD10 Worksheet Patient Problems: Problems Problem Status Onset Acute psychosis Chronic Cannabis dependence in controlled environment Chronic Schizophrenia, disorganized Chronic - ICD10 Problem Qualifiers (1) Cannabis dependence in controlled environment (2) Schizophrenia, disorganized (3) Acute psychosis
[2017-03-06] MEDS: OLANZapine DISINTEGR 10 MG TAB PO PRN (05:55)
[2017-03-06] MEDS: OLANZapine DISINTEGR 10 MG TAB PO SCH (09:09)
--- NOTE | 2017-03-06 20:31 | SOAPPROG ---
SOAP Progress Note Assessment/Plan: Assessment: Plan: 03/06/17 20:31 Improving back on meds. CCM. Subjective: Pt seen, discussed with staff. Remains rather disorganized, but cooperative with treatments. He recognizes me from a hospitalization at [facility] in 2012. He struggles to interact appropriately. Objective: Vital Signs Temp Pulse Resp BP Pulse Ox 36.3 C 61 12 97/64 L 95 03/06/17 06:51 03/06/17 06:51 03/06/17 06:51 03/06/17 06:51 03/06/17 06:51 MSE: Moderately anxious. Tries to be socially appropriate with a stilted interpersonal approach, e.g. at the end of the interview he states, in a rehearsed manner, "How about that sports team that we both like so much? I hope they do well this year." TC reveals some odd beliefs, occasional blocking. - Time Spent With Patient Time Spent With Patient: 25" ICD10 Worksheet Patient Problems: Problems Problem Status Onset Acute psychosis Chronic Cannabis dependence in controlled environment Chronic Schizophrenia, disorganized Chronic
[2017-03-06] MEDS: LORazepam 0.5 MG TAB PO PRN (21:23)
[2017-03-07] MEDS: OLANZapine DISINTEGR 10 MG TAB PO SCH (08:12)
--- NOTE | 2017-03-07 21:11 | SOAPPROG ---
SOAP Progress Note Assessment/Plan: Assessment: 46yo CM with long hx of BMD, EtOH/cocaine admitted with AMS and gravely disabled , recent inpt at [facility] 03/07/17 17:23 per staff, slept 9hr. pt reports no complaints, altho states "I'd like to report my crazy dreams after I get out, but not b/c it may change after I get out"... states sleeping "okay", feels rested. admits having some difficulty tracking conversation, and still "not feeling myself", needing "confidence back". states this is the first time in 20yrs he is actually "making an effort on my meds", and adds "I want a warm place to live ". plans to take current hospitalization "more seriously" than numerous times he 's been admitted in past. MSE: cooperative, resting calmly on couch in dayroom, mood "okay", affect calm, TP generally linear but loose at times. denies any SI or thoughts to harm others. does not appear responding to int stim. denied AH/vh. i/j-limited. Plan: cont current meds. has been taking zyprexa 10mg in AM, c/o sedation. will change to HS Objective: Vital Signs Temp Pulse Resp BP Pulse Ox 36.4 C 79 16 104/67 96 03/07/17 06:24 03/07/17 06:24 03/07/17 06:24 03/07/17 06:24 03/07/17 06:24 - Time Spent With Patient Time Spent With Patient: 35min - Pending Discharge Pending Discharge Within 24 Hours: No Pending Discharge Within 48 Hours: No ICD10 Worksheet Patient Problems: Problems Problem Status Onset Acute psychosis Chronic Cannabis dependence in controlled environment Chronic Schizophrenia, disorganized Chronic
--- NOTE | 2017-03-08 15:52 | SOAPPROG ---
SOAP Progress Note Assessment/Plan: Assessment: 02/28/17 16:19 Plan: Patient continues to present with AMS, confused, disoriented, unwilling to talk or interact with MD or staff. He refused his Zyprexa last HS, but slept 13+ hrs last night. He has superficial lacs on right foot that are healing. 1. RN to dress wounds as needed. Patient c/o pain in foot this AM, but not this afternoon. 2. Continue to offer Zyprexa for psychosis. 3. Request records from [facility] about recent hospitalization. 4. quality improvement coordinator to talk to [facility] for collateral information. 03/01/17 13:47 Plan: 1. Patient says he wants to "decline" all psych meds. He admits he has taken Zyprexa in past and he says his [facility] recommends this med because she thinks it works for him. However, he is unwilling to take it in hospital. 2. Patient says he has seen Dr. Flores in past, but can't remember an outpatient psych MD. He has gotten care at the [facility], but reports no medical conditions currently. 3. Will try to encourage patient to start on SGA SONYA. He seems much less paranoid AEB his willingness to talk to MD today. 03/02/17 12:37 Plan: 1. Patient states he is willing to take Zyprexa in AM. Will give first dose now. 2. Patient denies any c/o physical issues, no more c/o pain in foot. 03/03/17 11:45 1. Continue with Zyprexa. Patient took medication for first time yesterday and this AM. 2. CC to arrange intake referral to [facility]. He may have been open with [facility] in past , liaison will check for previous records. 03/04/17 12:33 Plan: 1. Patient has been compliant with meds x 48 hrs. 2. CCM 3. Will arrange f/u appts with [facility]. According to records he was last open with [facility] in 2014. Records received from [facility] indicate patient was last hopsitalized there in 03/2013. At that time he was stabilized on Risperdal 2mg QHS. 4. Likely d/c in 5-7 days. 03/05/17 13:52 Plan: 1. Patient did refuse his AM dose of Zyprexa b/c he took a PRN dose last night. He said he "didn't need another dose." Otherwise, patient has been compliant with medications. 2. CCM 3. D/C to [facility] appt next week once scheduled. 03/08/17 15:49 Plan: 1. Continue on CCM 2. CC to make aftercare appt at [facility] for later in week. 3. Will likely d/c by end of the week. Subjective: Met with patient and discussed with staff. Patient presents more talkative, fluent and better organized than last week. He is able to carry on conversation about discharge plan and goals. He states "I came to the conclusion that I need transitional living because the jail just isn't good for me." He says he has already talked to CC about possible living options. He knew the name of his CC as well. He says, "I'm improving" and "I feel better." He denies any AH/VH, SI/ HI. Objective: Vital Signs Temp Pulse Resp BP Pulse Ox 36.3 C 66 14 121/75 H 96 03/08/17 06:37 03/08/17 06:37 03/08/17 06:37 03/08/17 06:37 03/08/17 06:37 MSE: Dressed in street clothes, well groomed. Affect: Brighter, smiling Mood: "Better" TP: more organized and linear, still tangential and some thought blocking, but much less than before TC: Denies AH/VH, SI/HI - Time Spent With Patient Time Spent With Patient: 25" - Pending Discharge Pending Discharge Within 24 Hours: No ICD10 Worksheet Patient Problems: Problems Problem Status Onset Acute psychosis Chronic Cannabis dependence in controlled environment Chronic Schizophrenia, disorganized Chronic - ICD10 Problem Qualifiers (1) Cannabis dependence in controlled environment (2) Schizophrenia, disorganized (3) Acute psychosis
[2017-03-08] MEDS ORDERED: OLANZapine DISINTEGR 10 MG TAB PO SCH (21:00)
[2017-03-09] MEDS: ACETAMINOPHEN 325 MG TAB PO PRN (09:41)
[2017-03-09] MEDS ORDERED: OLANZapine DISINTEGR 10 MG TAB PO ONE (14:58)
--- NOTE | 2017-03-09 15:02 | SOAPPROG ---
SOAP Progress Note Assessment/Plan: Assessment: 02/28/17 16:19 Plan: Patient continues to present with AMS, confused, disoriented, unwilling to talk or interact with MD or staff. He refused his Zyprexa last HS, but slept 13+ hrs last night. He has superficial lacs on right foot that are healing. 1. RN to dress wounds as needed. Patient c/o pain in foot this AM, but not this afternoon. 2. Continue to offer Zyprexa for psychosis. 3. Request records from [facility] about recent hospitalization. 4. pharmacy operations coordinator to talk to [facility] for collateral information. 03/01/17 13:47 Plan: 1. Patient says he wants to "decline" all psych meds. He admits he has taken Zyprexa in past and he says his [facility] recommends this med because she thinks it works for him. However, he is unwilling to take it in hospital. 2. Patient says he has seen Dr. Flores in past, but can't remember an outpatient psych MD. He has gotten care at the [facility], but reports no medical conditions currently. 3. Will try to encourage patient to start on SGA SONYA. He seems much less paranoid AEB his willingness to talk to MD today. 03/02/17 12:37 Plan: 1. Patient states he is willing to take Zyprexa in AM. Will give first dose now. 2. Patient denies any c/o physical issues, no more c/o pain in foot. 03/03/17 11:45 1. Continue with Zyprexa. Patient took medication for first time yesterday and this AM. 2. CC to arrange intake referral to P. He may have been open with [facility] in past , liaison will check for previous records. 03/04/17 12:33 Plan: 1. Patient has been compliant with meds x 48 hrs. 2. CCM 3. Will arrange f/u appts with [facility]. According to records he was last open with [facility] in 2014. Records received from [facility] indicate patient was last hopsitalized there in 03/2013. At that time he was stabilized on Risperdal 2mg QHS. 4. Likely d/c in 5-7 days. 03/05/17 13:52 Plan: 1. Patient did refuse his AM dose of Zyprexa b/c he took a PRN dose last night. He said he "didn't need another dose." Otherwise, patient has been compliant with medications. 2. CCM 3. D/C to [facility] appt next week once scheduled. 03/08/17 15:49 Plan: 1. Continue on CCM 2. CC to make aftercare appt at [facility] for later in week. 3. Will likely d/c by end of the week. 03/09/17 14:59 Plan: 1. Patient has refused his Zyprexa last 2 nights. Will change it back to AM dose which he took regularly before. Will order One time dose now. 2. Since patient has decompensated the past 2 days d/t noncompliance, will wait until he stabilizes before making f/u appt. Subjective: Met with patient and discussed with staff. Patient is sitting in group room working on Snack[employer]. He initially says the reason he refused his Zyprexa is b/c he thinks the medicine is hurting his stomach. MD mentions how much better patient seemed to be doing when he was taking his meds and how he seems more confused and less engaged since he stopped. Patient said he would start taking it again in AM and agreed to take a dose now. MD told patient he can ask for PRN meds to help with GI issues if those continue. He agreed. Objective: Vital Signs Temp Pulse Resp BP Pulse Ox 36.4 C 82 14 122/77 H 97 03/09/17 06:00 03/09/17 06:00 03/09/17 06:00 03/09/17 06:00 03/09/17 06:00 MSE: Sitting in chair, wearing street clothes, working on Snack[employer]. Affect : Blunted Mood: "OK" TP: Circumstantial, some thought blocking TC: Denies AH/ VH, paranoia and delusion, no SI/HI Insight/Judgment: Impaired - Time Spent With Patient Time Spent With Patient: 20" - Pending Discharge Pending Discharge Within 24 Hours: No ICD10 Worksheet Patient Problems: Problems Problem Status Onset Acute psychosis Chronic Cannabis dependence in controlled environment Chronic Schizophrenia, disorganized Chronic - ICD10 Problem Qualifiers (1) Cannabis dependence in controlled environment (2) Schizophrenia, disorganized (3) Acute psychosis
[2017-03-10] MEDS ORDERED: OLANZapine DISINTEGR 10 MG TAB PO SCH ×2 (09:00→13:07)
--- NOTE | 2017-03-10 13:04 | SOAPPROG ---
SOAP Progress Note Assessment/Plan: Assessment: 02/28/17 16:19 Plan: Patient continues to present with AMS, confused, disoriented, unwilling to talk or interact with MD or staff. He refused his Zyprexa last HS, but slept 13+ hrs last night. He has superficial lacs on right foot that are healing. 1. RN to dress wounds as needed. Patient c/o pain in foot this AM, but not this afternoon. 2. Continue to offer Zyprexa for psychosis. 3. Request records from [facility] about recent hospitalization. 4. mail service coordinator to talk to [facility] for collateral information. 03/01/17 13:47 Plan: 1. Patient says he wants to "decline" all psych meds. He admits he has taken Zyprexa in past and he says his [facility] recommends this med because she thinks it works for him. However, he is unwilling to take it in hospital. 2. Patient says he has seen Dr. Flores in past, but can't remember an outpatient psych MD. He has gotten care at the [facility], but reports no medical conditions currently. 3. Will try to encourage patient to start on SGA SONYA. He seems much less paranoid AEB his willingness to talk to MD today. 03/02/17 12:37 Plan: 1. Patient states he is willing to take Zyprexa in AM. Will give first dose now. 2. Patient denies any c/o physical issues, no more c/o pain in foot. 03/03/17 11:45 1. Continue with Zyprexa. Patient took medication for first time yesterday and this AM. 2. CC to arrange intake referral to P. He may have been open with [facility] in past , liaison will check for previous records. 03/04/17 12:33 Plan: 1. Patient has been compliant with meds x 48 hrs. 2. CCM 3. Will arrange f/u appts with [facility]. According to records he was last open with [facility] in 2014. Records received from [facility] indicate patient was last hopsitalized there in 03/2013. At that time he was stabilized on Risperdal 2mg QHS. 4. Likely d/c in 5-7 days. 03/05/17 13:52 Plan: 1. Patient did refuse his AM dose of Zyprexa b/c he took a PRN dose last night. He said he "didn't need another dose." Otherwise, patient has been compliant with medications. 2. CCM 3. D/C to [facility] appt next week once scheduled. 03/08/17 15:49 Plan: 1. Continue on CCM 2. CC to make aftercare appt at [facility] for later in week. 3. Will likely d/c by end of the week. 03/09/17 14:59 Plan: 1. Patient has refused his Zyprexa last 2 nights. Will change it back to AM dose which he took regularly before. Will order One time dose now. 2. Since patient has decompensated the past 2 days d/t noncompliance, will wait until he stabilizes before making f/u appt. 03/10/17 13:01 Plan: 1. Patient resumed taking Zyprexa voluntarily. 2. CCM 3. Patient says he is willing to go live with his [facility] in [place] at discharge. CC will contact [facility] to verify whether or not this is possibility and make referral to local [facility] if appropriate. Subjective: Met with patient and discussed with staff. Patient agreed to resume taking Zyprexa. He has been compliant with meds since yesterday. He states, "I"m going to be decisive" when asked if he will stay on meds. Patient says he is "100%" sure he can stay at his FOC's house in [place] upon d/c. CC will contact [facility] to confirm. If so, will need referral to [facility] or the nearest outpatient [facility]. Patient denies AH/VH, but appears more disorganized and preoccupied than last week. He denies any SI/HI. Objective: Vital Signs Temp Pulse Resp BP Pulse Ox 36.6 C 82 14 117/77 96 03/10/17 06:00 03/10/17 06:00 03/10/17 06:00 03/10/17 06:00 03/10/17 06:00 MSE: Sitting on couch in front of TV, wearing same pants and T-shirt as last week. Affect: Blunted Mood: "Improving" TP: Disorganized, thought blocking, response latency TC: Denies AH/VH, internally preoccupied, denies SI/HI - Time Spent With Patient Time Spent With Patient: 20" - Pending Discharge Pending Discharge Within 24 Hours: No ICD10 Worksheet Patient Problems: Problems Problem Status Onset Acute psychosis Chronic Cannabis dependence in controlled environment Chronic Schizophrenia, disorganized Chronic - ICD10 Problem Qualifiers (1) Cannabis dependence in controlled environment (2) Schizophrenia, disorganized (3) Acute psychosis
[2017-03-11] MEDS ORDERED: OLANZapine DISINTEGR 10 MG TAB PO ONE (12:45)
--- NOTE | 2017-03-11 12:52 | SOAPPROG ---
SOAP Progress Note Assessment/Plan: Assessment: 02/28/17 16:19 Plan: Patient continues to present with AMS, confused, disoriented, unwilling to talk or interact with MD or staff. He refused his Zyprexa last HS, but slept 13+ hrs last night. He has superficial lacs on right foot that are healing. 1. RN to dress wounds as needed. Patient c/o pain in foot this AM, but not this afternoon. 2. Continue to offer Zyprexa for psychosis. 3. Request records from [facility] about recent hospitalization. 4. optometric coordinator to talk to [facility] for collateral information. 03/01/17 13:47 Plan: 1. Patient says he wants to "decline" all psych meds. He admits he has taken Zyprexa in past and he says his [facility] recommends this med because she thinks it works for him. However, he is unwilling to take it in hospital. 2. Patient says he has seen Dr. Flores in past, but can't remember an outpatient psych MD. He has gotten care at the [facility], but reports no medical conditions currently. 3. Will try to encourage patient to start on SGA SONYA. He seems much less paranoid AEB his willingness to talk to MD today. 03/02/17 12:37 Plan: 1. Patient states he is willing to take Zyprexa in AM. Will give first dose now. 2. Patient denies any c/o physical issues, no more c/o pain in foot. 03/03/17 11:45 1. Continue with Zyprexa. Patient took medication for first time yesterday and this AM. 2. CC to arrange intake referral to P. He may have been open with [facility] in past , liaison will check for previous records. 03/04/17 12:33 Plan: 1. Patient has been compliant with meds x 48 hrs. 2. CCM 3. Will arrange f/u appts with [facility]. According to records he was last open with [facility] in 2014. Records received from [facility] indicate patient was last hopsitalized there in 03/2013. At that time he was stabilized on Risperdal 2mg QHS. 4. Likely d/c in 5-7 days. 03/05/17 13:52 Plan: 1. Patient did refuse his AM dose of Zyprexa b/c he took a PRN dose last night. He said he "didn't need another dose." Otherwise, patient has been compliant with medications. 2. CCM 3. D/C to [facility] appt next week once scheduled. 03/08/17 15:49 Plan: 1. Continue on CCM 2. CC to make aftercare appt at [facility] for later in week. 3. Will likely d/c by end of the week. 03/09/17 14:59 Plan: 1. Patient has refused his Zyprexa last 2 nights. Will change it back to AM dose which he took regularly before. Will order One time dose now. 2. Since patient has decompensated the past 2 days d/t noncompliance, will wait until he stabilizes before making f/u appt. 03/10/17 13:01 Plan: 1. Patient resumed taking Zyprexa voluntarily. 2. CCM 3. Patient says he is willing to go live with his FOC in [place] at discharge. CC will contact FOC to verify whether or not this is possibility and make referral to local [facility] if appropriate. 03/11/17 12:46 Plan: 1. Patient refused Zyprexa this AM because he said it was too much and he only wanted to take 10mg dose. MD changed daily dose back to 10mg and ordered one time dose to replace the one he refused this AM. 2. CC has attempted multiple times to contact patient's FOC, but the phone number on records doesn't appear to be correct and patient denies knowing how to contact his dad. 3. Will likely be d[facility]c'd to [facility] with f/u at [facility] early next week. Subjective: Met with patient and discussed with staff. Patient is still guarded, reserved, disorganized. He is eating more than prior to admission, but eats less than 50% of meals. He is getting Ensure supplements and drank one with lunch today. Patient told staff that he has friends who are "famous, influential musicians...like [employer]." He often starts conversations with non sequiturs , and will just as easily become derailed during conversation. It's difficult to know for sure, but this appears to be patient's baseline. Without collateral information or more recent medical records, there's no way to know. Patient continues to deny AH/VH and SI/HI. He refused AM dose of Zyprexa b/c MD had raised it from 10mg to 15mg and he said he wouldn't take the increased dose, though he'd previously agreed. Objective: Vital Signs Temp Pulse Resp BP Pulse Ox 36.5 C 71 16 108/62 98 03/11/17 05:55 03/11/17 05:55 03/11/17 05:55 03/11/17 05:55 03/11/17 05:55 MSE: Calm, cooperative, dressed in street clothes, seated at table. Affect: Blunted Mood: "Improving" TP: Disorganized, tangential, thought blocking TC: Denies AH/VH, paranoia, denies SI/HI Insight/Judgment: Impaired - Time Spent With Patient Time Spent With Patient: 20" - Pending Discharge Pending Discharge Within 24 Hours: No ICD10 Worksheet Patient Problems: Problems Problem Status Onset Acute psychosis Chronic Cannabis dependence in controlled environment Chronic Schizophrenia, disorganized Chronic - ICD10 Problem Qualifiers (1) Cannabis dependence in controlled environment (2) Schizophrenia, disorganized (3) Acute psychosis
[2017-03-12] MEDS: OLANZapine DISINTEGR 10 MG TAB PO SCH (10:05)
--- NOTE | 2017-03-12 14:17 | SOAPPROG ---
SOAP Progress Note Assessment/Plan: Assessment: 02/28/17 16:19 Plan: Patient continues to present with AMS, confused, disoriented, unwilling to talk or interact with MD or staff. He refused his Zyprexa last HS, but slept 13+ hrs last night. He has superficial lacs on right foot that are healing. 1. RN to dress wounds as needed. Patient c/o pain in foot this AM, but not this afternoon. 2. Continue to offer Zyprexa for psychosis. 3. Request records from [facility] about recent hospitalization. 4. field care coordinator to talk to [facility] for collateral information. 03/01/17 13:47 Plan: 1. Patient says he wants to "decline" all psych meds. He admits he has taken Zyprexa in past and he says his [facility] recommends this med because she thinks it works for him. However, he is unwilling to take it in hospital. 2. Patient says he has seen Dr. Flores in past, but can't remember an outpatient psych MD. He has gotten care at the [facility], but reports no medical conditions currently. 3. Will try to encourage patient to start on SGA SONYA. He seems much less paranoid AEB his willingness to talk to MD today. 03/02/17 12:37 Plan: 1. Patient states he is willing to take Zyprexa in AM. Will give first dose now. 2. Patient denies any c/o physical issues, no more c/o pain in foot. 03/03/17 11:45 1. Continue with Zyprexa. Patient took medication for first time yesterday and this AM. 2. CC to arrange intake referral to P. He may have been open with [facility] in past , liaison will check for previous records. 03/04/17 12:33 Plan: 1. Patient has been compliant with meds x 48 hrs. 2. CCM 3. Will arrange f/u appts with [facility]. According to records he was last open with [facility] in 2014. Records received from [facility] indicate patient was last hopsitalized there in 03/2013. At that time he was stabilized on Risperdal 2mg QHS. 4. Likely d/c in 5-7 days. 03/05/17 13:52 Plan: 1. Patient did refuse his AM dose of Zyprexa b/c he took a PRN dose last night. He said he "didn't need another dose." Otherwise, patient has been compliant with medications. 2. CCM 3. D/C to [facility] appt next week once scheduled. 03/08/17 15:49 Plan: 1. Continue on CCM 2. CC to make aftercare appt at [facility] for later in week. 3. Will likely d/c by end of the week. 03/09/17 14:59 Plan: 1. Patient has refused his Zyprexa last 2 nights. Will change it back to AM dose which he took regularly before. Will order One time dose now. 2. Since patient has decompensated the past 2 days d/t noncompliance, will wait until he stabilizes before making f/u appt. 03/10/17 13:01 Plan: 1. Patient resumed taking Zyprexa voluntarily. 2. CCM 3. Patient says he is willing to go live with his FOC in [place] at discharge. CC will contact FOC to verify whether or not this is possibility and make referral to local [facility][1] if appropriate. 03/11/17 12:46 Plan: 1. Patient refused Zyprexa this AM because he said it was too much and he only wanted to take 10mg dose. MD changed daily dose back to 10mg and ordered one time dose to replace the one he refused this AM. 2. CC has attempted multiple times to contact patient's FOC, but the phone number on records doesn't appear to be correct and patient denies knowing how to contact his dad. 3. Will likely be d/c'd to homeless alf with f/u at [facility] early next week. 03/12/17 14:13 Plan: 1. [facility] - has been taking Zyprexa 10mg voluntarily. He even asked for his med this AM. 2. Patient has been attending groups. 3. Patient will likely d/c directly to his f/u appt at [facility] on 03/16/17 at 11:45am. Subjective: Met with patient and discussed with staff. Patient has been participating in milieu activities and attending groups. He has been compliant with medications. Patient told CC that he doesn't plan to stay in [place], but wants to drive his van to [place] to be near his MOC. Patient supposedly was living out of his van prior to admission. He denies any SI/HI. Objective: Vital Signs Temp Pulse Resp BP Pulse Ox 36.5 C 71 16 108/62 98 03/11/17 05:55 03/11/17 05:55 03/11/17 05:55 03/11/17 05:55 03/11/17 05:55 MSE: Cooperative, wearing same pants and shirt since admission. Affect: Flat Mood: "OK" TP: Disorganized, illogical at times TC: Denies AH/VH, no evidence of paranoia, denies SI/HI. - Time Spent With Patient Time Spent With Patient: 20" - Pending Discharge Pending Discharge Within 24 Hours: No Pending Discharge Date: 03/16/17 (Will likely discharge directly to [facility] appt at 11:45AM) Pending Discharge Time: 11:30 ICD10 Worksheet Patient Problems: Problems Problem Status Onset Acute psychosis Chronic Cannabis dependence in controlled environment Chronic Schizophrenia, disorganized Chronic - ICD10 Problem Qualifiers (1) Cannabis dependence in controlled environment (2) Schizophrenia, disorganized (3) Acute psychosis
[2017-03-13 06:24] VITALS: TEMP 98.1
[2017-03-13] MEDS: OLANZapine DISINTEGR 10 MG TAB PO SCH (08:00)
--- NOTE | 2017-03-13 15:34 | SOAPPROG ---
SOAP Progress Note Assessment/Plan: Assessment: 46yo CM with long hx of mental illness, hx EtOH/cocaine admitted with AMS and gravely disabled, recent inpt at [facility] has hx of SZP 03/07/17 17:23 per staff, slept 9hr. pt reports no complaints, altho states "I'd like to report my crazy dreams after I get out, but not b/c it may change after I get out"... states sleeping "okay", feels rested. admits having some difficulty tracking conversation, and still "not feeling myself", needing "confidence back". states this is the first time in 20yrs he is actually "making an effort on my meds", and adds "I want a warm place to live ". plans to take current hospitalization "more seriously" than numerous times he 's been admitted in past. MSE: cooperative, resting calmly on couch in dayroom, mood "okay", affect calm, TP generally linear but loose at times. denies any SI or thoughts to harm others. does not appear responding to int stim. denied AH/vh. i/j-limited. Plan: cont current meds. has been taking zyprexa 10mg in AM, c/o sedation. will change to HS 03/13/17 15:23 slept 8.5hrs. hoping for d/c soon. denied any med s/e. denied AM sedation and wants to cont with zyprexa in AM. does not want to take more than 10mg zyprexa, and likes Zydis formulation. feels this dose is adequate and helpful, concerned about weight gain, reports already gained 5lbs. maintains he will cont this med after d/c and just watch his diet. reportedly near baseline with primary team plan to d/c to outpt [facility] appt on 03/16. talked of plans to either return to [place] where mother lives or perhaps stay in [place] awaiting ski season to start in 2 months. states "I have money for food and clothing", and "I have long term"- plans to live out of his RV as before. 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 MSE: cooperative, nml speech vol/rate, good ec, mood "good" affect appropriate range and euthymic, TP/TC linear, seems reality-based, no delusions, denied ah/ vh or other psychotic sxs, reports no SI or thoughts to harm others, +future- oriented and expressing plan to comply with recommendations i/j-fair/fair. cognition conversationally intact. Plan: cont current meds zyprexa zydis 10mg qd Objective: Vital Signs Temp Pulse Resp BP Pulse Ox 36.7 C 62 14 110/72 97 03/13/17 06:00 03/13/17 06:00 03/13/17 06:00 03/13/17 06:00 03/13/17 06:00 - Time Spent With Patient Time Spent With Patient: 15 - Pending Discharge Pending Discharge Within 24 Hours: No Pending Discharge Within 48 Hours: No ICD10 Worksheet Patient Problems: Problems Problem Status Onset Acute psychosis Chronic Cannabis dependence in controlled environment Chronic Schizophrenia, disorganized Chronic
[2017-03-14] MEDS: OLANZapine DISINTEGR 10 MG TAB PO SCH (08:49)
--- NOTE | 2017-03-14 23:46 | SOAPPROG ---
SOAP Progress Note Assessment/Plan: Assessment: 46yo CM with long hx of mental illness, hx EtOH/cocaine admitted with AMS and gravely disabled, recent inpt at [facility] has hx of SZP 03/07/17 17:23 per staff, slept 9hr. pt reports no complaints, altho states "I'd like to report my crazy dreams after I get out, but not b/c it may change after I get out"... states sleeping "okay", feels rested. admits having some difficulty tracking conversation, and still "not feeling myself", needing "confidence back". states this is the first time in 20yrs he is actually "making an effort on my meds", and adds "I want a warm place to live ". plans to take current hospitalization "more seriously" than numerous times he 's been admitted in past. MSE: cooperative, resting calmly on couch in dayroom, mood "okay", affect calm, TP generally linear but loose at times. denies any SI or thoughts to harm others. does not appear responding to int stim. denied AH/vh. i/j-limited. Plan: cont current meds. has been taking zyprexa 10mg in AM, c/o sedation. will change to HS 03/13/17 15:23 slept 8.5hrs. hoping for d/c soon. denied any med s/e. denied AM sedation and wants to cont with zyprexa in AM. does not want to take more than 10mg zyprexa, and likes Zydis formulation. feels this dose is adequate and helpful, concerned about weight gain, reports already gained 5lbs. maintains he will cont this med after d/c and just watch his diet. reportedly near baseline with primary team plan to d/c to outpt [facility] appt on 03/16. talked of plans to either return to [place] where mother lives or perhaps stay in [place] awaiting ski season to start in 2 months. states "I have money for food and clothing", and "I have fci"- plans to live out of his RV as before. 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 MSE: cooperative, nml speech vol/rate, good ec, mood "good" affect appropriate range and euthymic, TP/TC linear, seems reality-based, no delusions, denied ah/ vh or other psychotic sxs, reports no SI or thoughts to harm others, +future- oriented and expressing plan to comply with recommendations i/j-fair/fair. cognition conversationally intact. Plan: cont current meds zyprexa zydis 10mg qd 03/14/17 23:37 slept 8hr. appears clinically stable resting in bed this am. still prefers am zyprexa. discussed options, likes zydis , would like to try 5mg bid instead but doesn't want 10mg hs. reports doing well overall, feels stable, not feeling depressed and denied any misael or psychotic sxs. denied med s/e except mild wt gain, which he admits concerns him over longer term. recalls xs wt gain in past on psychotropic meds to over 200# which affected his participating in sports/climbing which he has done for years. continues plan to remain active with outdoor activities as physically able, can' t really climb much anymore b/c bunions. plans to monitor wt and diet. commits for now to med compliance, but adds "I was off meds for 1-3 years" in past. future oriented thoughts but not sure about details. trying to decide if wants to travel to stay with mother in [place] for a while until ski season starts. MSE: cooperative, nml speech vol/rate, good ec, mood "fine" affect euthymic, TP/ TC linear, reality-based, no delusions, denied ah/vh or other psychotic sxs, reports no SI or thoughts to harm others, i/j-fair/fair. cognition conversationally intact. PLAN: cont zyprexa zydis, change from 10mg qam to 5mg bid. plan d/c this week Objective: Vital Signs Temp Pulse Resp BP Pulse Ox 36.7 C 62 14 110/72 97 03/13/17 06:00 03/13/17 06:00 03/13/17 06:00 03/13/17 06:00 03/13/17 06:00 - Time Spent With Patient Time Spent With Patient: 25min - Pending Discharge Pending Discharge Within 24 Hours: No Pending Discharge Within 48 Hours: Yes Pending Discharge Date: 03/16/17 Pending Discharge Time: 11:00 ICD10 Worksheet Patient Problems: Problems Problem Status Onset Acute psychosis Chronic Cannabis dependence in controlled environment Chronic Schizophrenia, disorganized Chronic
[2017-03-15] MEDS: OLANZapine DISINTEGR 5 MG TAB PO SCH ×2 (09:07→20:01)
--- NOTE | 2017-03-15 20:19 | SOAPPROG ---
SOAP Progress Note Assessment/Plan: Assessment: 46yo CM with long hx of mental illness, hx EtOH/cocaine admitted with AMS and gravely disabled, recent inpt at [facility] has hx of SZP 03/07/17 17:23 per staff, slept 9hr. pt reports no complaints, altho states "I'd like to report my crazy dreams after I get out, but not b/c it may change after I get out"... states sleeping "okay", feels rested. admits having some difficulty tracking conversation, and still "not feeling myself", needing "confidence back". states this is the first time in 20yrs he is actually "making an effort on my meds", and adds "I want a warm place to live ". plans to take current hospitalization "more seriously" than numerous times he 's been admitted in past. MSE: cooperative, resting calmly on couch in dayroom, mood "okay", affect calm, TP generally linear but loose at times. denies any SI or thoughts to harm others. does not appear responding to int stim. denied AH/vh. i/j-limited. Plan: cont current meds. has been taking zyprexa 10mg in AM, c/o sedation. will change to HS 03/13/17 15:23 slept 8.5hrs. hoping for d/c soon. denied any med s/e. denied AM sedation and wants to cont with zyprexa in AM. does not want to take more than 10mg zyprexa, and likes Zydis formulation. feels this dose is adequate and helpful, concerned about weight gain, reports already gained 5lbs. maintains he will cont this med after d/c and just watch his diet. reportedly near baseline with primary team plan to d/c to outpt [facility] appt on 03/16. talked of plans to either return to [place] where mother lives or perhaps stay in [place] awaiting ski season to start in 2 months. states "I have money for food and clothing", and "I have longterm"- plans to live out of his RV as before. 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 MSE: cooperative, nml speech vol/rate, good ec, mood "good" affect appropriate range and euthymic, TP/TC linear, seems reality-based, no delusions, denied ah/ vh or other psychotic sxs, reports no SI or thoughts to harm others, +future- oriented and expressing plan to comply with recommendations i/j-fair/fair. cognition conversationally intact. Plan: cont current meds zyprexa zydis 10mg qd 03/14/17 23:37 slept 8hr. appears clinically stable resting in bed this am. still prefers am zyprexa. discussed options, likes zydis , would like to try 5mg bid instead but doesn't want 10mg hs. reports doing well overall, feels stable, not feeling depressed and denied any misael or psychotic sxs. denied med s/e except mild wt gain, which he admits concerns him over longer term. recalls xs wt gain in past on psychotropic meds to over 200# which affected his participating in sports/climbing which he has done for years. continues plan to remain active with outdoor activities as physically able, can' t really climb much anymore b/c bunions. plans to monitor wt and diet. commits for now to med compliance, but adds "I was off meds for 1-3 years" in past. future oriented thoughts but not sure about details. trying to decide if wants to travel to stay with mother in [place] for a while until ski season starts. MSE: cooperative, nml speech vol/rate, good ec, mood "fine" affect euthymic, TP/ TC linear, reality-based, no delusions, denied ah/vh or other psychotic sxs, reports no SI or thoughts to harm others, i/j-fair/fair. cognition conversationally intact. PLAN: cont zyprexa zydis, change from 10mg qam to 5mg bid. plan d/c this week 03/15/17 20:14 slept 9.5hr in bed late AM and awakened for interview. states he's sleeping/resting b/c bored and awaiting d/c. no adverse effects with change zyprexa zydis to 5mg bid. no change in dispo plans, will go to [facility] appt after d/c and then track down his RV hoping it's not towed. gets SSDI check in 3 days. maintaining contact with father, called him today, still considering spending some time with mother in [place]. attending groups. no behavioral issues. no physical/medical c/o and denied any s /e to meds, plans to watch his weight. MSE: cooperative, nml speech vol/rate, nml eye contact, mood "pretty good, a little tired" affect euthymic, TP/TC linear, reality-based, no delusions, denied ah/vh or other psychotic sxs, reports no SI or thoughts to harm others, i/j-fair/fair. cognition intact. PLAN: cont zyprexa zydis 5mg bid plan d/c to [facility] appt 11:45 tomorrow Objective: Vital Signs Temp Pulse Resp BP Pulse Ox 36.7 C 84 14 101/67 93 03/15/17 06:00 03/15/17 06:00 03/15/17 06:00 03/15/17 06:00 03/15/17 06:00 - Time Spent With Patient Time Spent With Patient: 15min - Pending Discharge Pending Discharge Within 24 Hours: Yes Pending Discharge Within 48 Hours: No Pending Discharge Date: 03/16/17 Pending Discharge Time: 11:00 ICD10 Worksheet Patient Problems: Problems Problem Status Onset Acute psychosis Chronic Cannabis dependence in controlled environment Chronic Schizophrenia, disorganized Chronic
[2017-03-16 06:24] VITALS: BP 110/70; PULSE 76; RESP 16; O2SAT 91
[2017-03-16] MEDS ORDERED: OLANZapine DISINTEGR 10 MG TAB PO SCH (07:00)
--- NOTE | 2017-03-16 11:39 | SOAPPROG ---
SOAP Progress Note Assessment/Plan: Assessment: 46yo CM with long hx of mental illness, hx EtOH/cocaine admitted with AMS and gravely disabled, recent inpt at [facility] has hx of SZP 03/07/17 17:23 per staff, slept 9hr. pt reports no complaints, altho states "I'd like to report my crazy dreams after I get out, but not b/c it may change after I get out"... states sleeping "okay", feels rested. admits having some difficulty tracking conversation, and still "not feeling myself", needing "confidence back". states this is the first time in 20yrs he is actually "making an effort on my meds", and adds "I want a warm place to live ". plans to take current hospitalization "more seriously" than numerous times he 's been admitted in past. MSE: cooperative, resting calmly on couch in dayroom, mood "okay", affect calm, TP generally linear but loose at times. denies any SI or thoughts to harm others. does not appear responding to int stim. denied AH/vh. i/j-limited. Plan: cont current meds. has been taking zyprexa 10mg in AM, c/o sedation. will change to HS 03/13/17 15:23 slept 8.5hrs. hoping for d/c soon. denied any med s/e. denied AM sedation and wants to cont with zyprexa in AM. does not want to take more than 10mg zyprexa, and likes Zydis formulation. feels this dose is adequate and helpful, concerned about weight gain, reports already gained 5lbs. maintains he will cont this med after d/c and just watch his diet. reportedly near baseline with primary team plan [facility]. talked of plans to either return to [place] where mother lives or perhaps stay in [place] awaiting ski season to start in 2 months. states "I have money for food and clothing", and "I have half-way"- plans to live out of his RV as before. 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 MSE: cooperative, nml speech vol/rate, good ec, mood "good" affect appropriate range and euthymic, TP/TC linear, seems reality-based, no delusions, denied ah/ vh or other psychotic sxs, reports no SI or thoughts to harm others, +future- oriented and expressing plan to comply with recommendations i/j-fair/fair. cognition conversationally intact. Plan: cont current meds zyprexa zydis 10mg qd 03/14/17 23:37 slept 8hr. appears clinically stable resting in bed this am. still prefers am zyprexa. discussed options, likes zydis , would like to try 5mg bid instead but doesn't want 10mg hs. reports doing well overall, feels stable, not feeling depressed and denied any misael or psychotic sxs. denied med s/e except mild wt gain, which he admits concerns him over longer term. recalls xs wt gain in past on psychotropic meds to over 200# which affected his participating in sports/climbing which he has done for years. continues plan to remain active with outdoor activities as physically able, can' t really climb much anymore b/c bunions. plans to monitor wt and diet. commits for now to med compliance, but adds "I was off meds for 1-3 years" in past. future oriented thoughts but not sure about details. trying to decide if wants to travel to stay with mother in [place] for a while until ski season starts. MSE: cooperative, nml speech vol/rate, good ec, mood "fine" affect euthymic, TP/ TC linear, reality-based, no delusions, denied ah/vh or other psychotic sxs, reports no SI or thoughts to harm others, i/j-fair/fair. cognition conversationally intact. PLAN: cont zyprexa zydis, change from 10mg qam to 5mg bid. plan d/c this week 03/15/17 20:14 slept 9.5hr in bed late AM and awakened for interview. states he's sleeping/resting b/c bored and awaiting d/c. no adverse effects with change zyprexa zydis to 5mg bid. no change in dispo plans, [facility] after d/c and then track down his RV hoping it's not towed. gets SSDI check in 3 days. maintaining contact with father, called him today, still considering spending some time with mother in [place]. attending groups. no behavioral issues. no physical/medical c/o and denied any s /e to meds, plans to watch his weight. MSE: cooperative, nml speech vol/rate, nml eye contact, mood "pretty good, a little tired" affect euthymic, TP/TC linear, reality-based, no delusions, denied ah/vh or other psychotic sxs, reports no SI or thoughts to harm others, i/j-fair/fair. cognition intact. PLAN: cont zyprexa zydis 5mg bid plan d[facility]:45 tomorrow 03/16/17 11:20 Slept 9hr. no issues overnight per [facility] staff. attends groups, but does not participate actively and sometimes leaves early. pt up this AM, reports ready for d/c. no prob resuming 10mg qam dose from 5mg bid tried yesterday. plan to walk with home health care worker to outpt appt at 11:45am today. reports he will continue with meds as Rxd b/c not wanting to be hospitalized again. states no drugs/etoh prior to current admit, "I got really disorganized" denied any med s/e. no physical complaints. MSE: cooperative, nml speech vol/rate, not very spontaneous but articulate, nml eye contact, mood "I'm fine" affect constricted. TP/TC linear, reality-based, no delusions noted, denied ah/vh or other psychotic sxs, denied SI/HI. i/j-fair/ fair. cognition intact. PLAN: D[facility] appt 11:45 1mo Rx for zyprexa zydis 10mg provided Objective: Vital Signs Temp Pulse Resp BP Pulse Ox 36.7 C 76 16 110/70 91 L 03/15/17 06:00 03/16/17 06:00 03/16/17 06:00 03/16/17 06:00 03/16/17 06:00 - Pending Discharge Pending Discharge Within 24 Hours: Yes Pending Discharge Date: 03/16/17 Pending Discharge Time: 11:00 ICD10 Worksheet Patient Problems: Problems Problem Status Onset Acute psychosis Chronic Cannabis dependence in controlled environment Chronic Schizophrenia, disorganized Chronic
== END 2017-03-16 11:38 | disposition home or self-care (01) | DRG 885 ==
LOC: BBEH 23:15
PROVIDERS: ADMIT Specialist; ATTEND Specialist
DX: F25.9 Schizoaffective disorder, unspecified (principal); F12.10 Cannabis abuse, uncomplicated; Z98.1 Arthrodesis status; E78.5 Hyperlipidemia, unspecified; Z59.0 Homelessness
CPT/HCPCS: 80305; G0480

== ENCOUNTER 2017-04-12 16:11 | Inpatient (IN) | payer OTHER, MEDICAID ==
[2017-04-12] MEDS ORDERED: NS 1,000 ML IV ONE ×2 (16:17→16:55)
--- NOTE | 2017-04-12 16:29 | EDPHY ---
H & P Smoking Status: Never smoked Time Seen by Provider: 04/12/17 16:17 HPI/ROS: CHIEF COMPLAINT: Altered mental status HISTORY OF PRESENT ILLNESS: The patient is a 46-year-old male, with history of schizoaffective disorder, brought in by EMS, presenting with altered mental status. The patient was found sitting in his car in a city parking lot by PD. Patient was unable to communicate and appeared disoriented. EMS arrived, patient was able to say his name and knew he was in [place]. His initial BP: 200/130. HR 97. After 500ccs of fluid, BP dropped to 153/88. Patient is on a missing persons list from [email or web address]. History is limited, patient is unable to provide history. REVIEW OF SYSTEMS: ROS is limited, patient is reluctant to answer questions. (Marcy Kam) Past Medical/Surgical History: Schizoaffective disorder. (Marcy Kam) Social History: Currently homeless. (Marcy Kam) Physical Exam: General Appearance: Alert, reluctant to answer questions Eyes: Pupils equal and round, no conjunctival pallor or injection ENT, Mouth: Lips are chapped. Neck: Normal inspection Respiratory: Lungs are clear to auscultation Cardiovascular: Regular rate and rhythm Gastrointestinal: Abdomen is soft and non-tender Neurological: A&O, nonfocal, normal gait Skin: Warm and dry, no rash Extremities: Nontender, no pedal edema Psychiatric: Paranoid appearing. Reluctant to answer questions (Marcy Kam) Constitutional: Initial Vital Signs Temperature (C) 37.3 C 04/12/17 16:17 Heart Rate 89 04/12/17 16:17 Respiratory Rate 18 04/12/17 16:17 Blood Pressure 110/59 L 04/12/17 16:17 O2 Sat (%) 94 04/12/17 16:17 O2 Delivery Mode Room Air Allergies/Adverse Reactions: No Known Allergies Allergy (Unverified 04/12/17 16:27) Home Medications: Medication Instructions Recorded OLANZapine DISINTEGR [ZyPREXA 10 mg PO DAILY@0700 #0 tab 03/16/17 ZYDIS (*)] Abilify 04/12/17 Medical Decision Making - Diagnostics Imaging: Discussed imaging studies w/ manager call center Radiologist - Diagnostics Imaging Results: Imaging Impressions Head CT 04/12/17 16:18 Impression: Negative. No acute intracranial process. Findings discussed with Emergency Department physician, Dr. Marcy Kam on April 12, 2017 at 1639 hours. ED Course/Re-evaluation: 4:10 p.m. I assessed the patient. His initial BP was 110/100. I reviewed the patient's past medical records from ED visit 02/26/17. The patient had a similar presentation at that time and was admitted to [address] [place] [address]. He has a history of schizoaffective disorder. He was hospitalized at [facility] in the past. The patient is noncompliant with Zyprexa. 4:50 p.m.: Patient states he is currently living in his car. He says he is having auditory and visual hallucinations, but is unable to tell me what he is hearing or seeing. CT head is negative. Patient is receiving IV fluids. Urine toxicology is negative. Lab work is unremarkable. Plan for psych evaluation. 11:00 p.m.: The patient was signed out to Dr. Carrasquillo at shift change. Patient is awaiting psych evaluation. (Marcy Kam) 0200AM: Patient has been evaluated by mental health. Plan is for admission [address] [place] [address] is looking at him. He is here with acute psychosis catatonia (Jeffery Carrasquillo) Differential Diagnosis: Altered mental status including but not limited to hypoglycemia, infectious process, electrolyte abnormality, head injury and intoxicants. Altered mental status differential (Marcy Kam) 0251AM: This patient has been accepted at [address] [place] [address] Winkler. EMTALA FILLED OUT. Appropirate transfer will be set up. (Jeffery Carrasquillo) - Data Points Laboratory Results: Laboratory Results 04/12/17 16:00 04/12/17 16:00 04/12/17 04/12/17 04/12/17 20:37 16:00 16:00 WBC 9.82 10^3/uL H 10^3/uL (3.80-9.50) RBC 4.67 10^6/uL 10^6/uL (4.40-6.38) Hgb 15.0 g/dL g/dL (13.7-17.5) Hct 42.4 % % (40.0-51.0) MCV 90.8 fL fL (81.5-99.8) MCH 32.1 pg pg (27.9-34.1) MCHC 35.4 g/dL g/dL (32.4-36.7) RDW 12.0 % % (11.5-15.2) Plt Count 218 10^3/uL 10^3/uL (150-400) MPV 11.5 fL fL (8.7-11.7) Neut % (Auto) 75.1 % H % (39.3-74.2) Lymph % (Auto) 16.3 % % (15.0-45.0) [place] % (Auto) 7.6 % % (4.5-13.0) Eos % (Auto) 0.3 % L % (0.6-7.6) Baso % (Auto) 0.3 % % (0.3-1.7) Nucleat RBC Rel Count 0.0 % % (0.0-0.2) Absolute Neuts (auto) 7.37 10^3/uL H 10^3/uL (1.70-6.50) Absolute Lymphs (auto) 1.60 10^3/uL 10^3/uL (1.00-3.00) Absolute Monos (auto) 0.75 10^3/uL 10^3/uL (0.30-0.80) Absolute Eos (auto) 0.03 10^3/uL 10^3/uL (0.03-0.40) Absolute Basos (auto) 0.03 10^3/uL 10^3/uL (0.02-0.10) Absolute Nucleated RBC 0.00 10^3/uL 10^3/uL (0-0.01) Immature Gran % 0.4 % % (0.0-1.1) Immature Gran # 0.04 10^3/uL 10^3/uL (0.00-0.10) Sodium 136 mEq/L mEq/L (134-144) Potassium 3.6 mEq/L mEq/L (3.5-5.2) Chloride 97 mEq/L mEq/L (97-110) Carbon Dioxide 19 mEq/l L mEq/l (22-31) Anion Gap 20 mEq/L H mEq/L (8-16) BUN 25 mg/dL H mg/dL (7-23) Creatinine 1.0 mg/dL mg/dL (0.7-1.3) Estimated GFR > 60 Glucose 78 mg/dL mg/dL (70-100) Calcium 9.5 mg/dL mg/dL (8.5-10.4) Creatine Kinase 67 IU/L IU/L (0-224) Urine Opiates Screen NEGATIVE (NEGATIVE) Urine Barbiturates NEGATIVE (NEGATIVE) Ur Phencyclidine Scrn NEGATIVE (NEGATIVE) Ur Amphetamine Screen NEGATIVE (NEGATIVE) U Benzodiazepines Scrn NEGATIVE (NEGATIVE) Urine Cocaine Screen NEGATIVE (NEGATIVE) U Marijuana (THC) Screen NEGATIVE (NEGATIVE) Medications Given: Discontinued Medications Sodium Chloride (Ns) 1,000 mls @ 0 mls/hr IV ONCE ONE; Wide Open PRN Reason: Protocol Stop: 04/12/17 16:18 Last Admin: 04/12/17 16:22 Dose: 1,000 mls Sodium Chloride (Ns) 1,000 mls @ 0 mls/hr IV EDNOW ONE; Wide Open PRN Reason: Protocol Stop: 04/12/17 16:56 Last Admin: 04/12/17 17:43 Dose: 1,000 mls Departure - Departure Disposition: [facility] IP Clinical Impression: Acute psychosis Condition: Fair Referrals: Patient,NotPresent [Unknown] - As per Instructions Report Scribed for: Marcy Kam Report Scribed by: Lexy Tan Date of Report: 04/12/17 Time of Report: 16:28 Physician Review and Approval Statement: 04/12/17 16:28 Portions of this note were transcribed by a [facility]. I personally performed the history, physical exam, and medical decision-making; and confirmed the accuracy of the information in the transcribed note. (Marcy Kam)
[2017-04-12 16:36] LABS: % IMMATURE GRANULYOCYTES 0.4 % (0.0-1.1); ABSOLUTE IMMATURE GRANULOCYTES 0.04 10^3/uL (0.00-0.10); ADD DIFF? NO; ADD MORPH? NO; ADD SCAN? NO; ATYPICAL LYMPHOCYTE FLAG 0 (0-99); FRAGMENT RBC FLAG 0 (0-99); HEMATOCRIT 42.4 % (40.0-51.0); LEFT SHIFT FLG 0 (0-99); LIPEMIA HEMOLYSIS FLAG 90 (0-99); MEAN CELL HEMOGLOBIN 32.1 pg (27.9-34.1); MEAN CELL HEMOGLOBIN CONCENTR. 35.4 g/dL (32.4-36.7); MEAN CELL VOLUME 90.8 fL (81.5-99.8); MEAN PLATELET VOLUME 11.5 fL (8.7-11.7); PLATELET CLUMPS FLAG 0 (0-99); PLATELET COUNT 218 10^3/uL (150-400); RED BLOOD CELL COUNT 4.67 10^6/uL (4.40-6.38)
--- NOTE | 2017-04-12 16:44 | CPEKG ---
Heart Rate: 88 RR Interval: 682 P-R Interval: 132 QRSD Interval: 82 QT Interval: 396 QTC Interval: 480 P [place]: 60 QRS [place]: 72 T Wave [place]: 12 EKG Severity - ABNORMAL ECG - EKG Impression: SINUS RHYTHM EKG Impression: LATERAL INFARCT, OLD EKG Impression: BORDERLINE PROLONGED QT INTERVAL Electronically Signed By: Romeo Jones 13-Apr-2017 14:55:58
[2017-04-12 16:49] LABS: ANION GAP 20 mEq/L (8-16); CALCIUM 9.5 mg/dL (8.5-10.4); CARBON DIOXIDE 19 mEq/l (22-31); CHLORIDE 97 mEq/L (97-110); GLOMERULAR FILTRATION RATE > 60; GLUCOSE 78 mg/dL (70-100); POTASSIUM 3.6 mEq/L (3.5-5.2); SODIUM 136 mEq/L (134-144)
[2017-04-13] MEDS ORDERED: NICOTINE POLACRILEX 2 MG GUM B PRN (03:45)
[2017-04-13] MEDS ORDERED: MAG HYDROX/AL HYDROX/SIMETH 30 ML UDCUP PO PRN (03:45)
[2017-04-13] MEDS ORDERED: ACETAMINOPHEN 325 MG TAB PO PRN (03:45)
[2017-04-13] MEDS ORDERED: MAGNESIUM HYDROXIDE 30 ML UDCUP PO PRN (03:45)
[2017-04-13] MEDS ORDERED: OLANZapine 10 MG TAB PO PRN (03:46)
--- NOTE | 2017-04-13 15:08 | BCON ---
[f rep st] BEHAVIORAL HEALTH CONSULTATION INPATIENT INTERNAL MEDICINE CONSULTATION DATE OF CONSULTATION: 04/13/2017 REFERRING PHYSICIAN: Tariq Castaneda MD REASON FOR REFERRAL: Medical clearance for inpatient behavioral health stay. HISTORY OF PRESENT ILLNESS: This patient came to the [facility] Emergency Department by ambulance with altered mental status. Per the emergency department report, he was found sitting in his car in a city parking lot by the police department, unable to communicate and appearing disoriented. He is currently without acute complaints. PAST MEDICAL HISTORY: Schizoaffective disorder. He denies any history of any medical illnesses or surgeries. Chart review reveals a left radial head fracture in 2012. MEDICATIONS: On discharge from a prior psychiatric hospitalization at this institution, he was prescribed olanzapine; however, he has been noncompliant. ALLERGIES: There are no known drug allergies. SOCIAL HISTORY: He is homeless. He denies use of tobacco, alcohol, or other drugs of abuse. He has been living out of his van. 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 FAMILY HISTORY: Noncontributory. REVIEW OF SYSTEMS: A 10-point review of systems was conducted and was negative. In particular, he denies weight loss or loss of appetite, but chart review documents weight loss of 8 kg since 03/13/2017. PHYSICAL EXAM: VITAL SIGNS: Blood pressure is 106/96, heart rate is 66, respiratory rate is 16, oxygen saturation is 96% on room air. Temperature is 37 degrees centigrade. His weight is 68 kg for a body mass index of 22.2. GENERAL: This is a disheveled man, otherwise well-nourished, in no acute distress and cooperative. HEENT: Extraocular movements are intact. Pupils are equal, round, reactive to light. Mucous membranes are moist. Dentition is in good condition. NECK: Supple. HEART: There is regular rate and rhythm with no murmurs, rubs, or gallops. LUNGS: Clear to auscultation bilaterally. ABDOMEN: Soft, nontender, nondistended with normoactive bowel sounds. EXTREMITIES: There is no cyanosis, clubbing, or edema. NEUROLOGIC: He is alert and oriented to his location and the month, he is off by 1 on the date, thinking it is April 12. Cranial nerves 2-12 are grossly intact. There is no focal weakness, and sensation is intact to light touch. LABORATORY STUDIES: Drawn in the emergency department: CBC was overall within normal limits. He had a slight increase in white blood cells at 9.82 and an increase in absolute neutrophils at 7.37. Serum chemistry revealed a low carbon dioxide and an anion gap. He appeared somewhat dehydrated with a BUN of 25 and a creatinine of 1; otherwise, renal function and electrolytes, and a creatine kinase were within normal limits. Toxicology screen in the urine was negative for any substances of abuse. On chart review, he had a similar anion gap with a low CO2 on 02/26/2017. On , a lipid panel was drawn; he had an elevated cholesterol at 246, an LDL at 189, his HDL was low normal at 40 and at that time, his TSH was normal at 0.795. ASSESSMENT/RECOMMENDATIONS: 1. Mental health issues. Pending further evaluation and management per Psychiatry and the mental health team. 2. Weight loss with a normal thyroid 2 months ago. Advise monitoring for normal intake and consider daily or weekly weight. If weight loss continues despite stabilization of his mental health condition, further evaluation would be indicated. 3. Dyslipidemia. His 10-year cardiac risk by Chelsea criteria is 4 to 7%, so it is unclear whether he would benefit from cholesterol lowering medication. As he has been noncompliant with olanzapine, it is likely he would be noncompliant with other medications. Consider re-evaluation for treatment of dyslipidemia once his mental health condition is stabilized. 4. I see no medical contraindications to this patient's continued stay in the inpatient behavioral health unit or to any psychiatric medications or procedures. Thank you very much for including me in the care of this patient. Please do not hesitate to contact me or the hospitalist service should there be need for further medical evaluation. /[id number]/MODL MTDD
--- NOTE | 2017-04-13 16:47 | SOAPPROG ---
SOAP Progress Note Assessment/Plan: Assessment: Plan: 04/13/17 16:48 Pt has decompensated. Exact factors unknown. Assume medication non- compliance. Will restart Zyprexa, monitor. Subjective: Pt seen on two occasions today. He is sleepy, withdrawn, disorganized. Unable to provide meaningful hx with me. I am peripherally aware of his case from most recent hospitalization. He agrees to continue Zyprexa. Will continue to attempt to complete evaluation. Objective: Vital Signs Temp Pulse Resp BP Pulse Ox 37 C 66 16 106/96 H 96 04/13/17 03:03 04/13/17 03:03 04/13/17 03:03 04/13/17 03:03 04/13/17 03:03 MSE: Calm, coop though appears internally preoccupied. Affect is blunted, stable. Mood is "OK." TP disorganized. TC reveals paranoia, disorganization. - Time Spent With Patient Time Spent With Patient: 25" ICD10 Worksheet Patient Problems: Problems Problem Status Onset Acute psychosis Acute Acute psychosis Chronic Cannabis dependence in controlled environment Chronic Schizophrenia, disorganized Chronic
--- NOTE | 2017-04-14 11:42 | BAPA ---
[f rep st] ADMISSION PSYCHIATRIC ASSESSMENT DATE OF SERVICE: 04/13/2017 DATES OF EVALUATION: 04/13 and 04/14/2017. REASON FOR ADMISSION: The patient is a 46-year-old male with a history of chronic paranoi d schizophrenia. He was admitted after his parents had filed a missing person's report because he h ad not gone to their home as he had said he would. He was found in [place], in his van, which he quintana s been living in for some time. He was disorganized, mumbling, and could not respond appropriately to the police, and he was, therefore, placed on an M1 hold and brought to the hospital for evaluatio n. In the emergency department, he remained in this disorganized and confused condition and was adm itted for further evaluation. I interviewed him yesterday, and he can only speak in a few garbled s entences. Today, he seems better, though he states he is tired. He asked me about his meals and hi s diet and states he does not want to eat the food he was given this morning. I helped him fill out a lunch menu, and he seems marginally able to do this. He states that he thinks he will only drink orange juice. When asked why he is in the hospital, he says that he does not know. He says that amanda sykes can leave the hospital but cannot identify anything that is going on with him right now. He is ag reeable to taking Zyprexa and recognizes me from previous hospitalization. I am unable to get any o ther meaningful information. He does not volunteer any information. The patient was previously in this facility from 02/26/2017 to 03/16/2017. He was under the care of Dr. Kevin So at that time and was stabilized on Zyprexa. He was discharged on Zyprexa 10 mg, with followup with the [facility]. It is unclear whether he actually did this, however. PAST PSYCHIATRIC HISTORY: Significant for numerous previous psychiatric hospitalizations. I have t aken care of him at [facility] more than once, and he was recently at this facility, as mentioned above. He is followed by [facility]. ALLERGIES: No known medical allergies. CURRENT MEDICATIONS: Zyprexa 10 mg daily, though he has not been taking this apparently. PAST MEDICAL HISTORY: Significant for some possible cervical disk disease. He has had bilateral kn ee surgeries and a C5-C6 cervical fusion. SOCIAL HISTORY: Patient is currently homeless, living in his van. His parents, or at least his fat her, lives in [place], and he is his primary support. Patient prefers to be homeless, living in his ve hicle in [place], however. 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 He denies an y substance use and does have a history of significant substance use that I can find. ADMISSION LABORATORY: CBC shows a white count slightly up at 9.82, otherwise normal. Serum chemistry quality control analyst geronimo reveal a BUN up at 25. Sodium is normal at 136. Creatinine is normal at 1.0. Urine drug scre en is negative for all substances. CK is 67. MENTAL STATUS EXAMINATION: Reveals a disheveled, malodorous male. He is lying in the hos pital bed each time I attempt to interview him. This morning, he is more awake and interactive, tho ugh demonstrates a significant delay in response. His speech is soft and slow, halting. His affect is blunted, stable. His mood is described as "okay." His thought process appears to be disorganiz ed with internal preoccupation and some blocking. His thought content reveals an overall level of d isorganization, with possible paranoia, though it is difficult to assess given his limited ability t o participate in the interview. The patient is unable to answer questions in regard to memory or or ientation, though he appears alert and does not have any outward signs of delirium. The patient espinoza s not answer questions in regard to suicide, homicide or violent thoughts. The patient's insight an d judgment appear to be poor. IMPRESSION: Schizophrenia, paranoid type, chronic, with acute exacerbation, homelessness, chronic i llness, recurrent illness, treatment noncompliance. The patient is a 46-year-old male with a history of schizophrenia, presents in a decompens ated state following what appears to be medication noncompliance. Will restart his Zyprexa as he re sponded well to this before and is agreeable to taking it now. We will communicate with [facility] and see if we can put together somewhat of a more coherent discharge plan. Estimated length of stay is 5-7 days. /[id number]/MODL
--- NOTE | 2017-04-15 16:23 | SOAPPROG ---
SOAP Progress Note Assessment/Plan: Assessment: Plan: 04/13/17 16:48 Pt has decompensated. Exact factors unknown. Assume medication non- compliance. Will restart Zyprexa, monitor. 04/15/17 16:23 Remains quite ill. Will continue to encourage Zyprexa. He demonstrated similar intermittent refusals during last hospitalization. Subjective: Pt seen, discussed with staff. Continues to isolate in his room, sleeping excessively. Refused Zyprexa last night. Agrees with me to take it tonight, but then makes several statements that are unintelligible. Grooming is poor though behaviors are stable. Objective: Vital Signs Temp Pulse Resp BP Pulse Ox 37 C 66 16 106/96 H 96 04/13/17 03:03 04/13/17 03:03 04/13/17 03:03 04/13/17 03:03 04/13/17 03:03 MSE: Disheveled, malodorous. Affect is blunted, stable. Mood is "OK." TP disorganized. TC reveals internal preoccupation, RIS. - Time Spent With Patient Time Spent With Patient: 15" ICD10 Worksheet Patient Problems: Problems Problem Status Onset Acute psychosis Acute Acute psychosis Chronic Cannabis dependence in controlled environment Chronic Schizophrenia, disorganized Chronic
[2017-04-15] MEDS: OLANZapine DISINTEGR 10 MG TAB PO SCH (20:24)
[2017-04-16] MEDS: OLANZapine DISINTEGR 10 MG TAB PO SCH (20:36)
--- NOTE | 2017-04-17 16:31 | SOAPPROG ---
SOAP Progress Note Assessment/Plan: Assessment: 04/17/17 16:28 Plan: 1. This MD treated patient during last hospitalization in 02/2017. At that time, he was intermittently compliant with Olanzapine. So far, this admission, he has taken Olanzapine the last 2 nights. 2. Will continue with current tx plan. 3. Lack of stable housing, living in his truck and traveling around are primary reasons he has not followed through with outpatient appts and stopped taking meds in past. Will likely do the same after this d/c. He has little to no support to encourage compliance. He would benefit from transitional housing if available. Subjective: Met with patient, reviewed chart and discussed with staff. Patient presents similar to last admission. He is lying in bed, minimal engagement with MD, declines to answer most questions. He doesn't make eye contact, and will only say "I'm improving." When asked about his re-admission, he says, "I'm not ready to talk about it." He has been compliant with Olanzapine for past 2 nights. He appears preoccupied and responding to internal stimuli. Objective: Vital Signs Temp Pulse Resp BP Pulse Ox 36.5 C 71 14 122/80 H 95 04/17/17 06:26 04/17/17 06:26 04/17/17 06:26 04/17/17 06:26 04/17/17 06:26 MSE: Lying in bed wearing street clothes, wrapped in blanket. Affect: Constricted Mood: "OK" TP: Disorganized, illogical TC: Denies AH/VH, but clearly responding to IS, doesn't communicate enough to know about paranoia or delusions, no SI/HI Insight/Judgment: Impaired - Time Spent With Patient Time Spent With Patient: 20" - Pending Discharge Pending Discharge Within 24 Hours: No ICD10 Worksheet Patient Problems: Problems Problem Status Onset Cannabis dependence in controlled environment Chronic Schizophrenia, disorganized Chronic
[2017-04-17] MEDS ORDERED: OLANZapine 10 MG TAB PO PRN (16:36)
[2017-04-17] MEDS: OLANZapine DISINTEGR 10 MG TAB PO SCH (21:18)
--- NOTE | 2017-04-18 15:11 | SOAPPROG ---
SOAP Progress Note Assessment/Plan: Assessment: 04/17/17 16:28 Plan: 1. This MD treated patient during last hospitalization in 02/2017. At that time, he was intermittently compliant with Olanzapine. So far, this admission, he has taken Olanzapine the last 2 nights. 2. Will continue with current tx plan. 3. Lack of stable housing, living in his truck and traveling around are primary reasons he has not followed through with outpatient appts and stopped taking meds in past. Will likely do the same after this d/c. He has little to no support to encourage compliance. He would benefit from transitional housing if available. 04/18/17 15:08 Plan: 1. Still won't discuss what happened after his last admission. No change in presentation, guarded, isolative. 2. Has been taking Olanzapine a prescribed. 3. CCM Subjective: Met with patient and discussed with staff. Patient is lying in bed dressed in street clothes under covers. He did leave his room and ate lunch in dining room. He has limited interactions with peers, but seems slightly more engaged than during his previous admission. He denies any problems or physical complaints. When asked about specific psychotic sxs, patient just says, "I'm OK. " Objective: Vital Signs Temp Pulse Resp BP Pulse Ox 36.8 C 83 16 121/81 H 95 04/18/17 06:00 04/18/17 06:00 04/18/17 06:00 04/18/17 06:00 04/18/17 06:00 MSE: Well-groomed, appropriately dressed, lying in bed. Affect: Flat Mood: "OK " TP: Paucity of speech TC: Denies any AH/VH, but remains suspicious and guarded, no SI/HI Insight/Judgment: Poor - Time Spent With Patient Time Spent With Patient: 15" - Pending Discharge Pending Discharge Within 24 Hours: No ICD10 Worksheet Patient Problems: Problems Problem Status Onset Cannabis dependence in controlled environment Chronic Schizophrenia, disorganized Chronic
[2017-04-18] MEDS: OLANZapine DISINTEGR 10 MG TAB PO SCH (21:09)
--- NOTE | 2017-04-19 14:39 | SOAPPROG ---
SOAP Progress Note Assessment/Plan: Assessment: Plan: 04/13/17 16:48 Pt has decompensated. Exact factors unknown. Assume medication non- compliance. Will restart Zyprexa, monitor. 04/15/17 16:23 Remains quite ill. Will continue to encourage Zyprexa. He demonstrated similar intermittent refusals during last hospitalization. 04/19/17 14:38 Some improvement over the weekend. Will CCM. Subjective: Pt seen, discussed with staff, chart reviewed. Reportedly disorganized, confused over the weekend. Had to be assisted with operation of ice machine. Has been attempting to interact with others more. He tells me today that he is "just about ready to go." Compliant with meds. Objective: Vital Signs Temp Pulse Resp BP Pulse Ox 36.8 C 83 16 121/81 H 95 04/18/17 06:00 04/18/17 06:00 04/18/17 06:00 04/18/17 06:00 04/18/17 06:00 MSE: Moderately anxious, guarded. Speech is soft, slow. Affect is constricted. Mood is "OK." TP is linear. TC reveals continued thought blocking and derailment. - Time Spent With Patient Time Spent With Patient: 15" ICD10 Worksheet Patient Problems: Problems Problem Status Onset Cannabis dependence in controlled environment Chronic Schizophrenia, disorganized Chronic
[2017-04-19] MEDS: OLANZapine DISINTEGR 10 MG TAB PO SCH (20:15)
--- NOTE | 2017-04-20 16:45 | SOAPPROG ---
SOAP Progress Note Assessment/Plan: Assessment: Plan: 04/13/17 16:48 Pt has decompensated. Exact factors unknown. Assume medication non- compliance. Will restart Zyprexa, monitor. 04/15/17 16:23 Remains quite ill. Will continue to encourage Zyprexa. He demonstrated similar intermittent refusals during last hospitalization. 04/19/17 14:38 Some improvement over the weekend. Will CCM. 04/20/17 16:45 Continued gradual improvement. CCM. Subjective: Pt seen, discussed with staff. Reports feeling "a lot better" today. More interactive, discussing his treatment and his family. Remains disorganized, however, struggling to stay in the context of the conversation. Expresses some paranoid thoughts about his parents, but identifies them as his only supports. States he may go to [place] and live with his mother after d/c. Compliant with meds. Notes no SE's. Objective: Vital Signs Temp Pulse Resp BP Pulse Ox 36.8 C 83 16 121/81 H 95 04/18/17 06:00 04/18/17 06:00 04/18/17 06:00 04/18/17 06:00 04/18/17 06:00 MSE: Disheveled, malodorous. Affect is blunted, stable. Mood is "pretty good. " TP linear for brief periods, derails often. TC reveals some paranoia, internal preoccupation. - Time Spent With Patient Time Spent With Patient: 25" ICD10 Worksheet Patient Problems: Problems Problem Status Onset Cannabis dependence in controlled environment Chronic Schizophrenia, disorganized Chronic
[2017-04-20] MEDS: OLANZapine DISINTEGR 10 MG TAB PO SCH (19:59)
[2017-04-21] MEDS: OLANZapine DISINTEGR 10 MG TAB PO SCH (20:27)
[2017-04-21] MEDS: LORazepam 0.5 MG TAB PO PRN (20:32)
--- NOTE | 2017-04-22 15:50 | SOAPPROG ---
SOAP Progress Note Assessment/Plan: Assessment: Plan: 04/13/17 16:48 Pt has decompensated. Exact factors unknown. Assume medication non- compliance. Will restart Zyprexa, monitor. 04/15/17 16:23 Remains quite ill. Will continue to encourage Zyprexa. He demonstrated similar intermittent refusals during last hospitalization. 04/19/17 14:38 Some improvement over the weekend. Will CCM. 04/20/17 16:45 Continued gradual improvement. CCM. 04/22/17 15:48 Continued improvement. CCM. Subjective: Pt seen, discussed with staff. Reports feeling "OK". Continues to isolate in his room, though attending some groups now. Offers no c/o's. Grooming remains poor. Objective: Vital Signs Temp Pulse Resp BP Pulse Ox 36.3 C 89 14 103/61 97 04/22/17 06:41 04/22/17 06:41 04/22/17 06:41 04/22/17 06:41 04/22/17 06:41 MSE: Calm, coop. Affect is blunted, stable. Mood is "OK." TP disorganized. TC reveals continued internal preoccupation, inability to express himself/ idiosyncratic thoughts. - Time Spent With Patient Time Spent With Patient: 15" ICD10 Worksheet Patient Problems: Problems Problem Status Onset Cannabis dependence in controlled environment Chronic Schizophrenia, disorganized Chronic
[2017-04-22] MEDS: OLANZapine DISINTEGR 10 MG TAB PO SCH (21:10)
[2017-04-23 06:30] VITALS: BP 112/70; PULSE 69; RESP 12; TEMP 97.4; O2SAT 96
--- NOTE | 2017-04-23 13:52 | SOAPPROG ---
SOAP Progress Note Assessment/Plan: Assessment: Plan: 04/13/17 16:48 Pt has decompensated. Exact factors unknown. Assume medication non- compliance. Will restart Zyprexa, monitor. 04/15/17 16:23 Remains quite ill. Will continue to encourage Zyprexa. He demonstrated similar intermittent refusals during last hospitalization. 04/19/17 14:38 Some improvement over the weekend. Will CCM. 04/20/17 16:45 Continued gradual improvement. CCM. 04/22/17 15:48 Continued improvement. CCM. 04/23/17 13:53 Improved overall, though remains disorganized. CCM. Subjective: Pt seen, discussed with staff. Reports feeling "really good." He then states, "I need to be here to be safe. That's all there is to say about it." Remains disorganized, struggles to interact appropriately with others or communicate effectively. Compliant with meds. Offers no c/o's. Continues to sleep excessively as was his pattern on most recent hospitalization. Staff observes gradual improvement. Objective: Vital Signs Temp Pulse Resp BP Pulse Ox 36.3 C 69 12 112/70 96 04/23/17 06:29 04/23/17 06:29 04/23/17 06:29 04/23/17 06:29 04/23/17 06:29 MSE: Moderately anxious, interactive, guarded. Affect is constricted, stable. Mood is "really good." TP disorganized. TC reveals some paranoia, fear of being harmed. - Time Spent With Patient Time Spent With Patient: 15" ICD10 Worksheet Patient Problems: Problems Problem Status Onset Cannabis dependence in controlled environment Chronic Schizophrenia, disorganized Chronic
[2017-04-23] MEDS: OLANZapine DISINTEGR 10 MG TAB PO SCH (20:29)
[2017-04-23] MEDS: LORazepam 0.5 MG TAB PO PRN (22:15)
--- NOTE | 2017-04-24 16:11 | SOAPPROG ---
SOAP Progress Note Assessment/Plan: Assessment: Per Dr. Castaneda's most recent note on 04/23/17: 04/19/17 14:38 Some improvement over the weekend. Will CCM. 04/20/17 16:45 Continued gradual improvement. CCM. 04/22/17 15:48 Continued improvement. CCM. 04/23/17 13:53 Improved overall, though remains disorganized. CCM. Subjective: Pt seen, discussed with staff. Reports feeling "really good." He then states, "I need to be here to be safe. That's all there is to say about it." Remains disorganized, struggles to interact appropriately with others or communicate effectively. Compliant with meds. Offers no c/o's. Continues to sleep excessively as was his pattern on most recent hospitalization. Staff observes gradual improvement. 04/24/17 16:07 Plan: 1. CCM - slow improvement, similar to last hospital admission Subjective: Met with patient, reviewed chart and discussed with staff. Patient presents calm , cooperative, seated on couch. He is isolating less in his room. When he was first admitted, he only left his room for meals, and MD would find him napping in bed. Today, he has gone to art therapy group, eaten meals in dining room and has remained present in milieu. This is a good sign that patient is feeling less paranoid and is having an easier time interacting, though he still doesn't engage much with peers or staff and says very little. When MD asks how he's doing, patient says, "can we talk later." He then adds, "I feel fine...I'm getting better." Patient denies any AH/VH, no SI/HI, less paranoid. Objective: Vital Signs Temp Pulse Resp BP Pulse Ox 36.3 C 69 12 112/70 96 04/23/17 06:29 04/23/17 06:29 04/23/17 06:29 04/23/17 06:29 04/23/17 06:29 MSE: Dressed in street clothes, seated on couch in front of TV. Affect: Constricted Mood: "Fine" TP: More spontaneous, but still paucity of speech and halting speech TC: Denies any AH/VH, no SI/HI, less paranoia Insight/ Judgment: Impaired - Time Spent With Patient Time Spent With Patient: 20" - Pending Discharge Pending Discharge Within 24 Hours: No Pending Discharge Within 48 Hours: No ICD10 Worksheet Patient Problems: Problems Problem Status Onset Cannabis dependence in controlled environment Chronic Schizophrenia, disorganized Chronic
[2017-04-24] MEDS: LORazepam 0.5 MG TAB PO PRN (19:00)
[2017-04-24] MEDS: OLANZapine DISINTEGR 10 MG TAB PO SCH (21:12)
--- NOTE | 2017-04-25 13:08 | SOAPPROG ---
SOAP Progress Note Assessment/Plan: Assessment: Per Dr. Castaneda's most recent note on 04/23/17: 04/19/17 14:38 Some improvement over the weekend. Will CCM. 04/20/17 16:45 Continued gradual improvement. CCM. 04/22/17 15:48 Continued improvement. CCM. 04/23/17 13:53 Improved overall, though remains disorganized. CCM. Subjective: Pt seen, discussed with staff. Reports feeling "really good." He then states, "I need to be here to be safe. That's all there is to say about it." Remains disorganized, struggles to interact appropriately with others or communicate effectively. Compliant with meds. Offers no c/o's. Continues to sleep excessively as was his pattern on most recent hospitalization. Staff observes gradual improvement. 04/24/17 16:07 Plan: 1. CCM - slow improvement, similar to last hospital admission 04/25/17 13:04 Plan: 1. CCM - no change, slow improvement 2. Remains compliant with PO Zyprexa Subjective: Met with patient and discussed with staff. Patient is seated on couch watching TV with peers, but he doesn't engage with them or talk to anyone. He is quiet, but less isolative than at admission. He still declines to answer most questions , but says "I'm good" and "It's getting better" to most questions MD asks. He still seems internally preoccupied and disorganized, but not quite as severe as when he was admitted. No SI/HI. Objective: Vital Signs Temp Pulse Resp BP Pulse Ox 36.3 C 69 12 112/70 96 04/23/17 06:29 04/23/17 06:29 04/23/17 06:29 04/23/17 06:29 04/23/17 06:29 MSE: Wearing same pants, shirt and shoes since admission, sitting watching TV. Affect: Constricted Mood: "Good" TP: Disorganized, illogical, perseverative TC: Denies AH/VH, but seems internally preoccupied, no SI/HI Insight/Judgment: Impaired - Time Spent With Patient Time Spent With Patient: 20" - Pending Discharge Pending Discharge Within 24 Hours: No Pending Discharge Within 48 Hours: No ICD10 Worksheet Patient Problems: Problems Problem Status Onset Cannabis dependence in controlled environment Chronic Schizophrenia, disorganized Chronic
[2017-04-25] MEDS: OLANZapine DISINTEGR 10 MG TAB PO SCH (21:02)
[2017-04-25] MEDS: LORazepam 0.5 MG TAB PO PRN (21:41)
--- NOTE | 2017-04-26 11:24 | SOAPPROG ---
SOAP Progress Note Assessment/Plan: Assessment: Plan: 04/13/17 16:48 Pt has decompensated. Exact factors unknown. Assume medication non- compliance. Will restart Zyprexa, monitor. 04/15/17 16:23 Remains quite ill. Will continue to encourage Zyprexa. He demonstrated similar intermittent refusals during last hospitalization. 04/19/17 14:38 Some improvement over the weekend. Will CCM. 04/20/17 16:45 Continued gradual improvement. CCM. 04/22/17 15:48 Continued improvement. CCM. 04/23/17 13:53 Improved overall, though remains disorganized. CCM. 04/26/17 11:25 Slow improvement. CCM. Subjective: Pt seen, discussed with staff. Reportedly more interactive over the WE, going to groups and playing chess with other patients. He remains disorganized, unable to reasonably discuss d/c plan. Continues to debate whether to go to one of his parents' homes. Compliant with meds. Objective: Vital Signs Temp Pulse Resp BP Pulse Ox 36.3 C 69 12 112/70 96 04/23/17 06:29 04/23/17 06:29 04/23/17 06:29 04/23/17 06:29 04/23/17 06:29 MSE: Calm, coop. Affect is constricted, stable. Mood is "OK." TP disorganized. TC reveals paranoia, especially towards parents. States, "I don' t really trust them. They don't like me." - Time Spent With Patient Time Spent With Patient: 15" ICD10 Worksheet Patient Problems: Problems Problem Status Onset Cannabis dependence in controlled environment Chronic Schizophrenia, disorganized Chronic
[2017-04-26] MEDS: LORazepam 0.5 MG TAB PO PRN (19:18)
[2017-04-26] MEDS: OLANZapine DISINTEGR 10 MG TAB PO SCH (20:57)
--- NOTE | 2017-04-27 16:16 | SOAPPROG ---
SOAP Progress Note Assessment/Plan: Assessment: Plan: 04/13/17 16:48 Pt has decompensated. Exact factors unknown. Assume medication non- compliance. Will restart Zyprexa, monitor. 04/15/17 16:23 Remains quite ill. Will continue to encourage Zyprexa. He demonstrated similar intermittent refusals during last hospitalization. 04/19/17 14:38 Some improvement over the weekend. Will CCM. 04/20/17 16:45 Continued gradual improvement. CCM. 04/22/17 15:48 Continued improvement. CCM. 04/23/17 13:53 Improved overall, though remains disorganized. CCM. 04/26/17 11:25 Slow improvement. CCM. 04/27/17 16:16 MUCH improved today. Appears to be at baseline with only minimal residual sx' s. Will [facility], continue d/c planning. Likely d/c tomorrow. Subjective: Pt seen, discussed with staff. Reports feeling "pretty normal" today. He is conversant and appropriate. Able to navigate Internet to check his email, look up the website for the mechanical service specialist who has his van, call the mechanical service specialist on the phone to properly discuss the van, and make arrangements to pick it up. He is well- groomed and appropriately interactive. We discussed at length his d/c plan and he states he hopes to go to [place] to live with his father and rent his brother' s house. He needs his van first, however. I also reiterated the need for strict medication compliance if he is to function normally. Objective: Vital Signs Temp Pulse Resp BP Pulse Ox 36.3 C 69 12 112/70 96 04/23/17 06:29 04/23/17 06:29 04/23/17 06:29 04/23/17 06:29 04/23/17 06:29 MSE: Calm, coop. Activity and speech are normal. Affect is euthymic, stable, well-modulated. Mood is "good." TP linear. TC reveals no psychosis. He is A& Ox4. - Time Spent With Patient Time Spent With Patient: 25" ICD10 Worksheet Patient Problems: Problems Problem Status Onset Cannabis dependence in controlled environment Chronic Schizophrenia, disorganized Chronic
[2017-04-27] MEDS: OLANZapine DISINTEGR 10 MG TAB PO SCH (21:28)
[2017-04-28] MEDS: LORazepam 0.5 MG TAB PO PRN (20:52)
[2017-04-28] MEDS: OLANZapine DISINTEGR 10 MG TAB PO SCH (20:53)
--- NOTE | 2017-04-28 22:58 | SOAPPROG ---
ANKUSH Progress Note Assessment/Plan: Assessment: 46yo with SZP admitted in [facility] off meds. recently d/cd 1 mo ago. 04/28/17 11:12 slept 8hr. seems somewhat disorganized as staff tried to direct him to work on relaspe prevention. discussed whether thought ready for d/c. pt hesitated, not sure what he'd do if his van not ready (in shop), "it's more of a financial situation...I don't have enough money in my bank to pay for it (fixing car)". talked some of his plan to go skiing once snow season started. talked some of being unable to climb as he used to, that those days were over. shows small amt of belly fat and attributes this to Zyprexa. Discussed med compliance, lack of, and rehospitalization pattern. Reviewed other meds avail as options which were not nearly as likely to cause wt gain. Pt declined any other med considerations (even to consider in future if again n/c) and gave vague reasons "that wasn't a good one", or "made me feel bad". Recalled feeling well for years on no meds, alluding to feeling puzzled as to why meds. . Talked about plan to rent brother's home in [place], [place] with his father. But also not very looking fwd b/c "nothing" to do around there. MSE: disheveled. unkempt. casually dressed. appeared overall slowed , good eye contact, slightly slowed speech, but nml tone/vol. mood "okay", affect seemed a little puzzled/confused at times, constricted, and noted incongruent when asked about if depressed- laughed "yes I'm depressed". tp/tc- did seem disorganized at times, with occasional conflicting response, and somewhat slow processing, denied ah/vh, denied si/hi, and did not appear RIS. i/j impaired/poor. A&O to Apr 24, 217, corrected to 13 and 15min later asked, pt did not recall date, "I'm not good at that". stares at his relapse prevention worksheet- "my writing is like a 6th grader, it should be college level..." adds that he feels he has gained 20# since admission due to zyprexa Reviewed meds currently taking and reminder for zyprexa compliance. Pt asks to make sure he gets Rx for Ativan at d/c. Questioned further abt this request for bzd, stated he needed this for anxiety and sleep, and states has been taking here. Regarding alternatives like melatonin, '"oh, no, Way too strong". Has not been reported with any sleeping difficulty here. Stated outside hospital he didn't use or have any BZD, then stated he does have , "I keep them in my bathroom cabinet". But is homeless in van, and then "no I don't, I don't have a bathroom in my van" and realized what he said was not really logical. PLAN: cont zyprexa. pt refuses any other psychotropic meds still seems a bit confused/disorganized. quique to drive a van to [place]. asked for Ativan rx at d/c. using 1mg 1-2x/day. will decr to 0.5mg. has outpt appt 05/04, but ?need for change if relocating to [place]? Objective: Vital Signs Temp Pulse Resp BP Pulse Ox 36.3 C 69 12 112/70 96 04/23/17 06:29 04/23/17 06:29 04/23/17 06:29 04/23/17 06:29 04/23/17 06:29 - Time Spent With Patient Time Spent With Patient: 35min - Pending Discharge Pending Discharge Within 24 Hours: No Pending Discharge Within 48 Hours: No ICD10 Worksheet Patient Problems: Problems Problem Status Onset Cannabis dependence in controlled environment Chronic Schizophrenia, disorganized Chronic
[2017-04-28] MEDS ORDERED: LORazepam 0.5 MG TAB PO PRN (22:59)
== END 2017-04-29 13:23 | disposition home or self-care (01) | DRG 885 ==
LOC: EEVIPCON 16:11 → BBEH 04-13 03:25
PROVIDERS: ADMIT Psychiatry & Neurology Psychiatry; ATTEND Psychiatry & Neurology Psychiatry
DX: F20.0 Paranoid schizophrenia (principal); Z59.0 Homelessness; Z91.19 Patient's noncompliance with other medical treatment and regimen; E78.5 Hyperlipidemia, unspecified; R63.4 Abnormal weight loss
CPT/HCPCS: 80305

== ENCOUNTER 2017-05-04 08:46 | Inpatient (IN) | payer OTHER, MEDICAID ==
[2017-05-04] MEDS ORDERED: LORazepam 1 MG TAB PO ONE (08:53)
--- NOTE | 2017-05-04 08:56 | EDPHY ---
H & P Time Seen by Provider: 05/04/17 08:53 HPI/ROS: CHIEF COMPLAINT: Schizophrenic HISTORY OF PRESENT ILLNESS: The patient is a 46-year-old man with a history of paranoid schizophrenia who was [facility] last night for suspected intoxication. The patient denies any drinking or drug use. He was evaluated there by mental health and placed on a M1 hold for being disorganized and gravely disabled. The patient is very paranoid when he arrives here in the emergency department and will not answer my questions. REVIEW OF SYSTEMS: Unable to obtain secondary to condition EXAM: GENERAL: nervous, well-nourished and in no acute distress. HEAD: Atraumatic, normocephalic. EYES: Wearing sunglasses, Pupils equal round and reactive to light, extraocular movements intact, sclera anicteric, conjunctiva are normal. ENT: TMs normal, nares patent, oropharynx clear without exudates. Moist mucous membranes. NECK: Normal range of motion, supple without lymphadenopathy or JVD. LUNGS: Breath sounds clear to auscultation bilaterally and equal. No wheezes rales or rhonchi. HEART: Regular rate and rhythm without murmurs, rubs or gallops. ABDOMEN: Soft, nontender, normoactive bowel sounds. No guarding, no rebound. No masses appreciated. BACK: No CVA tenderness, no spinal tenderness, step-offs or deformities EXTREMITIES: Normal range of motion, no pitting or edema. No clubbing or cyanosis. NEUROLOGICAL: Cranial nerves II through XII grossly intact. Normal speech, normal gait. 5/5 strength, normal movement in all extremities, normal sensation PSYCH: Nervous , difficulty answering questions SKIN: Warm, dry, normal turgor, no visible rashes or lesions. Source: Patient Exam Limitations: No limitations - Medical/Surgical History Hx Asthma: No Hx Chronic Respiratory Disease: No Hx Diabetes: No Hx Cardiac Disease: No Hx Renal Disease: No Hx Cirrhosis: No Hx Alcoholism: No Hx HIV/AIDS: No Hx Splenectomy or Spleen Trauma: No Other PMH: bipolar, schizoaffective, cervical fusion c5/6, herpes simplex, anxiety, ETOH and Cocain use, KNEE AND HAND SURGERIES - Family History Significant Family History: No pertinent family hx - Social History Smoking Status: Never smoked Alcohol Use: Sober Drug Use: None Constitutional: Initial Vital Signs Temperature (C) 36.5 C 05/04/17 09:51 Heart Rate 60 05/04/17 09:51 Respiratory Rate 14 05/04/17 09:51 Blood Pressure 133/116 H 05/04/17 09:51 O2 Sat (%) 95 05/04/17 09:51 O2 Delivery Mode Room Air Allergies/Adverse Reactions: No Known Allergies Allergy (Unverified 04/12/17 16:27) Home Medications: Medication Instructions Recorded LORazepam [Ativan (*)] 0.5 mg PO HS PRN 05/04/17 lamoTRIgine [Lamictal] 150 mg PO DAILY 05/04/17 Medical Decision Making ED Course/Re-evaluation: The patient is medically cleared and is awaiting psychiatric placement. He was evaluated at the [facility]. 3:00 p.m. care transferred to Dr. Salvatore Wood at shift change. Differential Diagnosis: Partial list of the Differential diagnosis considered include but were not limited to; substance abuse, psychosis, schizophrenia, bipolar and although unlikely based on the history and physical exam, I also considered head injury, infection, intoxication. - Data Points Laboratory Results: Laboratory Results 05/04/17 08:45 05/04/17 08:45 Medications Given: Lorazepam (Ativan) 0.5 - 1 mg PO Q4HRS PRN PRN Reason: Anxiety, Able to Take PO Stop: 10/31/17 18:14 Last Admin: 05/04/17 21:20 Dose: 1 mg Discontinued Medications Lorazepam (Ativan) 1 mg PO EDNOW ONE Stop: 05/04/17 08:54 Last Admin: 05/04/17 09:49 Dose: 1 mg Olanzapine (Zyprexa Zydis) 10 mg PO BID SUDHA Stop: 10/31/17 20:59 Last Admin: 05/05/17 08:37 Dose: Not Given Departure - Departure Disposition: [facility] IP Clinical Impression: Schizophrenia, disorganized Condition: Fair
[2017-05-04 09:01] LABS: % IMMATURE GRANULYOCYTES 0.2 % (0.0-1.1); ABSOLUTE IMMATURE GRANULOCYTES 0.01 10^3/uL (0.00-0.10); ADD DIFF? NO; ADD MORPH? NO; ADD SCAN? NO; ATYPICAL LYMPHOCYTE FLAG 20 (0-99); FRAGMENT RBC FLAG 0 (0-99); HEMATOCRIT 47.8 % (40.0-51.0); HEMOGLOBIN 16.3 g/dL (13.7-17.5); LEFT SHIFT FLG 0 (0-99); LIPEMIA HEMOLYSIS FLAG 90 (0-99); MEAN CELL HEMOGLOBIN 31.7 pg (27.9-34.1); MEAN CELL HEMOGLOBIN CONCENTR. 34.1 g/dL (32.4-36.7); MEAN CELL VOLUME 92.8 fL (81.5-99.8); MEAN PLATELET VOLUME 11.2 fL (8.7-11.7); PLATELET CLUMPS FLAG 0 (0-99); PLATELET COUNT 187 10^3/uL (150-400); RED BLOOD CELL COUNT 5.15 10^6/uL (4.40-6.38); RED CELL DISTRIBUTION WIDTH 12.4 % (11.5-15.2)
[2017-05-04 09:22] LABS: ANION GAP 16 mEq/L (8-16); CALCIUM 9.5 mg/dL (8.5-10.4); CARBON DIOXIDE 26 mEq/l (22-31); CHLORIDE 100 mEq/L (97-110); CREATININE 0.7 mg/dL (0.7-1.3); ETHANOL SERUM < 10 mg/dL (0-10); GLOMERULAR FILTRATION RATE > 60; GLUCOSE 91 mg/dL (70-100); SODIUM 142 mEq/L (134-144)
[2017-05-04] MEDS ORDERED: MAGNESIUM HYDROXIDE 30 ML UDCUP PO PRN (18:15)
[2017-05-04] MEDS ORDERED: MAG HYDROX/AL HYDROX/SIMETH 30 ML UDCUP PO PRN (18:15)
[2017-05-04] MEDS ORDERED: ACETAMINOPHEN 325 MG TAB PO PRN (18:15)
[2017-05-04] MEDS ORDERED: NICOTINE POLACRILEX 2 MG GUM B PRN (18:15)
[2017-05-04] MEDS: LORazepam 0.5 MG TAB PO PRN (21:20)
[2017-05-04] MEDS: OLANZapine DISINTEGR 10 MG TAB PO SCH (21:20)
[2017-05-05] MEDS: OLANZapine DISINTEGR 10 MG TAB PO SCH ×2 (08:37→20:42)
--- NOTE | 2017-05-05 12:52 | BAPA ---
[f rep st] ADMISSION PSYCHIATRIC ASSESSMENT DATE OF SERVICE: 05/05/2017 CHIEF COMPLAINT: "I need Section 8 housing. Can you tell me who is in charge of Section 8 housing?" HISTORY OF PRESENT ILLNESS: This is a 46-year-old, , single, unemployed, homeless man with a history of schizophrenia who is well known to the Inpatient [facility] Unit on [address] [place] [address]. The patient was recently discharged from [address] [place] [address] on 04/29/2017. [facility]. According to records from the emergency department, the patient [facility] and was evaluated by Bibi Duran, his correctional case manager, who referred him to [facility] walk-in clinic for an evaluation. The walk-in clinic placed him on a mental health hold, and accor ding to [facility] hold, they reported "Client has a history of chronic paranoid schizophrenia. T he client appears confused, disorganized and unable to express himself. Client is disoriented and wa s unable to recognize where he was. Client is gravely disabled." He was sent to the [facility] emergency department on 05/03/2017 on a mental health hold. According to the walk-in clinic, they kept him overnight for 16 hours of observation. Because he did not improve, they sent him to the ED with the intent of re-hospitalizing him to stabilize him again. The patient denied any SI, HI. He has been hospitalized multiple times on [address] [place] [address] within the last couple of months. He had previously been living out of his truck because he was homeless, but he says now that his truck is broken down a nd that he has been walking everywhere, and he says that he has not been taking his medications. He says he has no support system other than his father, but he has not been in touch with his father sin ce his discharge. Father stated that the patient was supposed to stay with him a few days after camron faustin discharged the last time he was on [address] [place] [address], but he just left and went back to [place] and stayed in his truck. The patient said that he never got the prescription for his Zyprexa and Ativan filled wh en he left on 04/29 and another time told someone that he did get his prescription filled but his med ications had been stolen. Either way, the patient reports that he has not been taking his medication s as prescribed since his discharge on 04/29/2017. PAST PSYCHIATRIC HISTORY: The patient is a [facility] client but is noncompliant with tr eatment. He has been hospitalized multiple times recently on [address] [place] [address]. He was at [facility] in January. He was admitted to [facility] inpatient unit on 02/13 and discharged on 03/16/2017. He was readmitted on 04/13/2017 and discharged on 04/29/2017. Each of those times, the patient was stabilized on Zyprexa 10 mg p.o. daily and showed significant im provement and was not exhibiting paranoid delusions and was much less disorganized upon discharge, bu t pretty quickly decompensated because he never took medications after he left the hospital and never followed up with [facility] as an outpatient. The patient does not have a history of patel icide attempt but does have a long history of paranoid schizophrenia going back until the time that amanda sykes was in his 20s. ALLERGIES: Patient denies any known drug allergies. CURRENT MEDICATIONS: Patient is not currently compliant with meds. When he was discharged from [address] [place] [address] on 04/29/2017, he was prescribed Zyprexa 10 mg p.o. daily and Ativan 0.5 to 1 mg p.r.n. for anxie ty. PAST MEDICAL HISTORY: Patient has a history of cervical disk disease and bilateral knee surgeries. PAST SURGICAL HISTORY: He had cervical fusion of C5 and 6 and then multiple knee and hand surgeries. SOCIAL HISTORY: The patient's biological mother and father are . Patient has 1 brother. He is not in touch with his family. He was supposed to stay with his father when he was discharged at the beginning of March from [address] [place] [address], but he did not. He has been homeless for several months. He h as been living out of his truck, but he says now that his truck is broken down and he cannot use it f or transportation so he has had a walk everywhere. The patient has never been and does not h ave any children. The only support system he identifies is his father, but he does not keep in regul ar touch with him. He does not have any friends or peer support. The patient does have a high [employer] diploma. 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 The patient says that he wants to get Section 8 housing but understand s that there is a long wait list and that subsidized housing is not always easily available. He said that he used to live in section 8 housing, but it has been about 10 years since he had permanently a ffordable housing. The patient does get SSDI. He says that he gets 900 dollars a month. He is his own payee but says that he runs out of money. It is not entirely clear what he has been spending his money on. He says that he does not buy drugs with it, that he only spends it on food, gas for his t ruck before it broke down, so it is unclear how he goes through 900 dollars in a month. SUBSTANCE USE HISTORY: The patient denies using any drugs or drinking alcohol. His urine drug scree n has been negative. Urine tox screen was negative for all drugs of abuse on the last 2 admissions, and his ethyl alcohol level was less than 10 on both admissions as well. FAMILY HISTORY: The patient denies a history of mental illness in the family. He also denies a hist ory of drug or alcohol use in his family. ADMISSION LABS: White cell count was 4.58, hemoglobin was 16.3, hematocrit was 47.8, platelet count was 187. Sodium was 142, potassium was 4.0, chloride was 100, BUN was 15, creatinine was 0.7, glucos e was 91, calcium was 9.5, urine tox screen was negative for all drugs of abuse. Ethyl alcohol level was less than 10. MENTAL STATUS EXAMINATION: This is a well-developed, slightly disheveled and unkempt man. On his previous presentations the patient has been very guarded and isolative. This admission is th e first time that this MD has seen the patient be more talkative, spontaneous speech and interacting, asking questions and not just responding to questions. He approached the MD even before MD asked an ything and wanted to know how he could get Section 8 housing. He was more conversant, although tange ntial and disorganized at times. His affect is euthymic. His mood, he says, is "okay." His thought process is disorganized, tangential and illogical at times. His thought content, he denies auditory and visual hallucinations. He does not currently present as paranoid and denies having any paranoid delusions. He also does not appear to be responding to internal or external stim, and he denies any thoughts, plans or intents to hurt himself or anyone else. He is alert and oriented x3. His intell ect is average based upon his educational and occupational history, fund of knowledge and vocabulary. His insight and judgment are both impaired. DIAGNOSES: 1. Chronic paranoid schizophrenia. 2. Psychosocial stressors include homeless, unemployed, multiple recent hospitalizations, noncomplia nt with treatment, social isolation, lack of peer support, financial problems. Is not able to suppor t himself on his 900 dollars a month of SSDI. More than likely patient needs a payee. PLAN: 1. Admit patient to behavioral health services inpatient unit on an M1 hold. 2. Monitor closely for safety. The patient is not a danger to self or danger to others at the [facility] time. 3. The patient refused his morning dose of Zyprexa because he insists that he wants to take it at [facility]. He has been compliant with taking medications during his previous admission. Will convert his Zyprexa 10 mg dose to q.h.s. Expect that patient will stabilize within a few days based upon his hos pital course during his last admission. The problem will be maintaining compliance with treatment on ce the patient leaves the hospital. The main challenges for compliance for the patient include his h omeless status as well as his lack of supervision and monitoring. 4. Will engage in individual, group, and milieu therapies. 5. Patient would like assistance with housing. Will ask the care transition coordinator to talk with the [facility]. He can be referred [facility], but patient wants to stay in [facility]. It is unclear at this time what his other options would be. Care coordinators have been in touch with the patient's father during his previous admission, and father even volunteered for e patient to stay with him when he was discharged on March 16, but patient never followed up and did not stay at his dad's. He has a tendency to leave and to go off his medications, and then he usually gets referred to the emergency department either through the walk-in clinic or by the police. If po ssible, would like to come up with a better plan for ensuring long-term compliance for this patient w ho has been difficult to manage due to his unwillingness to adhere to an aftercare plan. 6. Estimated length of stay is 3-5 days. /[id number]/[id number]
[2017-05-05] MEDS: LORazepam 0.5 MG TAB PO PRN (18:56)
--- NOTE | 2017-05-06 16:36 | SOAPPROG ---
SOAP Progress Note Assessment/Plan: Assessment: 46 yo man with chronic paranoid schizophrenia who has been admitted to inpatient behavioral unit on 3N three times in past 3 months. Most recently he was d/c'd on 04/19/17. He was supposed to f/u with [facility], but says he never got his prescriptions filled and has been homeless. He has not been able to live in his van b/c supposedly it is at a garage waiting to be fixed. He went to ED and requested help. He is disorganized and delusional, but less so than at previous admissions. 05/06/17 16:32 Plan: 1. Patient has been compliant with Zyprexa at . This medication was effective during all 3 previous admissions. However, patient has h/o noncompliance once he is discharged. 2. Consider Zyprexa Relprevv POMPA prior to d/c. In past, patient has refused IM injections and will only take Zyprexa. Will discuss option of different POMPA. 3. CC spoke to patient's father who live in [place]. His father wants patient to come live with him, but in past, patient was unwilling to go to [place] and stay with dad. 4. Place on [facility]. Subjective: Met with patient and discussed with staff. Patient slept 11 hrs last night, and was napping when MD went to talk to him. During his last 2 admissions, patient isolated in his room, slept most of the day and had little interaction with peers. However, yesterday, patient was more talkative, engaged with staff and peers and stayed in milieu most of the day. He has not been observed responding to IS/ES. He denies any AH/VH and denies any SI/HI. CC spoke to patient's father who lives in [place]. His dad wants to buy a trailer so that he and patient can live together in [place]. Patient has not agreed to this plan yet, but is willing to consider it. His father is "blind" per patient, and cannot drive to pick him up. Objective: Vital Signs Temp Pulse Resp BP Pulse Ox 36.7 C 105 H 14 93/62 L 96 05/06/17 05:15 05/06/17 05:15 05/06/17 05:15 05/06/17 05:15 05/06/17 05:15 MSE: Lying in bed, cooperative. Affect: Flat Mood: "OK" TP: Disorganized, but logical TC: Denies any SI/HI, no AH/VH, less paranoid than previous admission Insight/Judgment: Poor - Time Spent With Patient Time Spent With Patient: 20" - Pending Discharge Pending Discharge Within 24 Hours: No Pending Discharge Within 48 Hours: No ICD10 Worksheet Patient Problems: Problems Problem Status Onset Schizophrenia, disorganized Chronic Cannabis dependence in controlled environment Chronic
[2017-05-06] MEDS: OLANZapine DISINTEGR 10 MG TAB PO SCH (20:22)
[2017-05-07] MEDS: LORazepam 0.5 MG TAB PO PRN ×2 (01:07→18:58)
--- NOTE | 2017-05-07 14:54 | SOAPPROG ---
SOAP Progress Note Assessment/Plan: Assessment: 46 yo man with chronic paranoid schizophrenia who has been admitted to inpatient behavioral unit on 3N three times in past 3 months. Most recently he was d/c'd on 04/19/17. He was supposed to f/u with [facility], but says he never got his prescriptions filled and has been homeless. He has not been able to live in his van b/c supposedly it is at a garage waiting to be fixed. He went to ED and requested help. He is disorganized and delusional, but less so than at previous admissions. 05/06/17 16:32 Plan: 1. Patient has been compliant with Zyprexa at . This medication was effective during all 3 previous admissions. However, patient has h/o noncompliance once he is discharged. 2. Consider Zyprexa Relprevv POMPA prior to d/c. In past, patient has refused IM injections and will only take Zyprexa. Will discuss option of different POMPA. 3. CC spoke to patient's father who live in [place]. His father wants patient to come live with him, but in past, patient was unwilling to go to [place] and stay with dad. 4. Place on [facility]. 05/07/17 14:50 Plan: 1 Present in milieu, participating in groups. 2. [facility] - patient is stabilizing 3. Father has changed his mind about patient living with him in [place]. CC to arrange a family meeting for Wednesday. MD encouraged patient to call his father and talk about plans this weekend, so they both have time to come up with a good plan before their family meeting. Patient says he would be willing to stay with dad if he will let him. Subjective: Met with patient and discussed with staff. Patient seated on couch, calm, pleasant. He says he'd be "open" to living with dad, but did not commit 100% to the idea. MD encouraged patient to talk to dad this weekend and come up with a plan. Patient agreed. He denies any SI/HI, no AH/VH, less paranoid. Objective: Vital Signs Temp Pulse Resp BP Pulse Ox 36.8 C 92 14 131/62 H 99 05/07/17 06:00 05/07/17 06:00 05/07/17 06:00 05/07/17 06:00 05/07/17 06:00 MSE: Calm, quiet, guarded. Affect: Flat Mood: "OK" TP: More coherent and logical TC: Denies AH/VH, no SI/HI, less paranoid Insight/Judgment: Improving - Time Spent With Patient Time Spent With Patient: 20" - Pending Discharge Pending Discharge Within 24 Hours: No Pending Discharge Within 48 Hours: No ICD10 Worksheet Patient Problems: Problems Problem Status Onset Schizophrenia, disorganized Chronic Cannabis dependence in controlled environment Chronic
[2017-05-07] MEDS: OLANZapine DISINTEGR 10 MG TAB PO SCH (19:40)
--- NOTE | 2017-05-08 13:05 | SOAPPROG ---
SOAP Progress Note Assessment/Plan: Assessment: Plan: 05/08/17 13:04 Stabilizing. CCM. Continue active d/c planning. Subjective: Pt seen, discussed with staff, chart reviewed. He is in bed sleeping after breakfast. Did not attend 1000 group. He is pleasant and interactive. I engaged him on the need for a coherent d/c plan. He voices agreement with this. Stats he wants a conference call with his father and treatment team. Objective: Vital Signs Temp Pulse Resp BP Pulse Ox 36.8 C 92 14 131/62 H 99 05/07/17 06:00 05/07/17 06:00 05/07/17 06:00 05/07/17 06:00 05/07/17 06:00 MSE: Calm, coop. Affect is blunted, stable. Mood is "OK." TP generally linear. No delay in response. TC reveals no mention of paranoid thoughts. - Time Spent With Patient Time Spent With Patient: 15" ICD10 Worksheet Patient Problems: Problems Problem Status Onset Schizophrenia, disorganized Chronic Cannabis dependence in controlled environment Chronic
[2017-05-08] MEDS: LORazepam 0.5 MG TAB PO PRN (20:14)
[2017-05-08] MEDS: OLANZapine DISINTEGR 10 MG TAB PO SCH (20:15)
[2017-05-09 06:36] VITALS: RESP 16
[2017-05-09] MEDS: LORazepam 0.5 MG TAB PO PRN (18:58)
[2017-05-09] MEDS: OLANZapine DISINTEGR 10 MG TAB PO SCH (18:59)
--- NOTE | 2017-05-09 20:39 | SOAPPROG ---
SOSUHA Progress Note Assessment/Plan: Assessment: Plan: 05/08/17 13:04 Stabilizing. CCM. Continue active d/c planning. 05/09/17 20:38 Calmer today. Remains ambivalent about medication treatment. CCM. Subjective: Pt seen, discussed with staff. Reports feeling "very safe and cared for here." States I remind him of his father and is comforted when I come on the unit. Compliant with meds and some groups. No bx issues. Objective: Vital Signs Temp Pulse Resp BP Pulse Ox 36.8 C 84 16 118/70 96 05/07/17 06:00 05/09/17 06:00 05/09/17 06:00 05/09/17 06:00 05/09/17 06:00 ICD10 Worksheet Patient Problems: Problems Problem Status Onset Schizophrenia, disorganized Chronic Cannabis dependence in controlled environment Chronic
[2017-05-10 01:56] VITALS: O2SAT 94
--- NOTE | 2017-05-10 12:34 | SOAPPROG ---
SOAP Progress Note Assessment/Plan: Assessment: 1. Schizophrenia, paranoid subtype Work on increasing antipsychotic over time. Work on transition to outpatient treatment. Plan: Continue current medications Work on transition to outpatient treatment. 05/10/17 12:37 Subjective: "Fine." Reports feeling well. Energy is "all right." Appetite is "fine." Slept "so so," 8.5 hours last night. Denies AH/VH. Denies SI. Mr. Quintero lives in the back of his Van, which was recently repaired. He thinks everything is good with his Van. He is thinking about whether he will live here in [place] or closer to his family. Objective: Vital Signs Temp Pulse Resp BP Pulse Ox 36.8 C 77 16 100/66 94 05/07/17 06:00 05/10/17 01:55 05/10/17 01:55 05/10/17 01:55 05/10/17 01:55 Medications Generic Name Dose Route Start Last Admin Trade Name Freq PRN Reason Stop Dose Admin Olanzapine 10 mg 05/05/17 21:00 05/09/17 18:59 Zyprexa Zydis PO 11/01/17 20:59 10 mg HS SUDHA MSE Awake, alert, lying in bed, lying on left side. Does not sit up to talk to me, but does engage with me today. Speech is a little slow in rate, not pressured, not rapid Thought processes linear, but poverty of spontaneous thoughts Some delayed responses to questions, may be responding to internal stimuli Lacks insight, lacks judgment ICD10 Worksheet Patient Problems: Problems Problem Status Onset Schizophrenia, disorganized Chronic Cannabis dependence in controlled environment Chronic
[2017-05-10] MEDS: OLANZapine DISINTEGR 10 MG TAB PO SCH (20:54)
[2017-05-10] MEDS: LORazepam 0.5 MG TAB PO PRN (20:54)
--- NOTE | 2017-05-11 10:57 | SOAPPROG ---
SOAP Progress Note Assessment/Plan: Assessment: 1. Schizophrenia, paranoid subtype Denies abnormal internal stimuli today. Thinks medications are working well. Plan: Continue current medications Discharge tomorrow to go directly to outpatient appointment. 05/11/17 10:59 Subjective: "That's it." Slept 8.5 hours per sleep record, but tells me that he "did not sleep very well. " Denies AH/VH. Denies SI/HI. Energy is okay. Appetite is good. Concentration is okay. Discussed plan for discharge to go directly to outpatient appt tomorrow AM and then go to [employer] pick[employer]. Tells me he thinks this is a good plan. Objective: Vital Signs Temp Pulse Resp BP Pulse Ox 36.8 C 77 16 100/66 94 05/07/17 06:00 05/10/17 01:55 05/10/17 01:55 05/10/17 01:55 05/10/17 01:55 Medications Generic Name Dose Route Start Last Admin Trade Name Freq PRN Reason Stop Dose Admin Olanzapine 10 mg 05/05/17 21:00 05/10/17 20:54 Zyprexa Zydis PO 11/01/17 20:59 10 mg HS SUDHA MSE Lying in bed, but awake and sits up to speak with me Speech not pressured nor rapid Thought processes linear. Denies abnormal perceptions and no reports that he is responding to internal stimuli. limited insight and judgment ICD10 Worksheet Patient Problems: Problems Problem Status Onset Schizophrenia, disorganized Chronic Cannabis dependence in controlled environment Chronic
[2017-05-11] MEDS: LORazepam 0.5 MG TAB PO PRN ×2 (18:09→22:18)
[2017-05-11] MEDS: OLANZapine DISINTEGR 10 MG TAB PO SCH (19:39)
--- NOTE | 2017-05-11 23:46 | BDS ---
[f rep st] BEHAVIORAL HEALTH DISCHARGE SUMMARY DIAGNOSES: 1. Schizophrenia, paranoid subtype. 2. Nicotine dependence. 3. Homeless, lives in his van. PROCEDURES: None. COMPLICATIONS: None. REVIEW OF CASE: This patient is a 46-year-old male with a long history of schizophrenia. He has been followed by the [facility], but unfortunately has not stayed in followup very well. He has a history of poor adherence to treatment recommendations, going off medications, and having exacerbations of his schizophrenia, which result in him losing his stable housing. His homeless lifestyle then makes it more difficult for him to remain in treatment and stay on medications. He is currently living in his van. He was admitted to the [facility]'s inpatient psychiatric unit earlier this month, and was treated for several days here. If I understand the history incorrectly, he missed his followup appointment, but then went to the [facility] walk-in clinic a few days later. He was thought to be gravely disabled. He was confused and unable to meet his basic needs for food, clothing, and penitentiary. He was placed on a 72-hour mental health hold and brought to the [facility] Emergency room, where he was evaluated and admitted because of his inability to meet his basic needs. Unfortunately, his homelessness remains a problem. He does well when he is in an inpatient, supervised setting. He did not fill his prescriptions after his last discharge, we are hoping he will fill his prescriptions this time. One thing we are doing to help him is to discharge him to go directly to his intake appointment at the [facility]. He was admitted for grave disability and was not thought to be suicidal nor homicidal, and he consistently and persistently denied thoughts of hurting himself or others during the hospital stay. He also denied a history of issues in this area. His psychosis ameliorated once he was back on his medications. Thus, correctable risks for dangerousness all improved during this hospital stay. He slept well, his mood was stable and his anxiety was under good control. So I do assess his dangerousness is minimal at the time of discharge. He had a very good response to olanzapine 10 mg at bedtime. He seems to do well with this medicine and has been stable on this medicine in the past. This is his only medication at the time of discharge. We are, on purpose, trying to keep his medication regimen simple to try and ensure or maximize the possibility for adherence after he leaves the hospital. He is being discharged in a good condition. He has a plan to go to his appointment with [facility]. He will then go to tow picker his van using a taxi voucher that we are providing him. We hope he will keep his followup appointments, take his medications and do better. He has had Section 8 housing in [facility] in the past, and did do better when he had a form of stable housing. We hope he will be able to access this again in the future. /[id number]/MODL MTDD
[2017-05-12 03:51] VITALS: BP 109/73; PULSE 82
[2017-05-12 06:15] VITALS: TEMP 97.8
== END 2017-05-12 09:48 | disposition home or self-care (01) | DRG 885 ==
LOC: EDUNIT# → BBEH 20:20
PROVIDERS: ADMIT Psychiatry & Neurology Behavioral Neurology & Neuropsychiatry; ATTEND Specialist
DX: F20.0 Paranoid schizophrenia (principal); Z59.0 Homelessness; F17.200 Nicotine dependence, unspecified, uncomplicated; Z91.19 Patient's noncompliance with other medical treatment and regimen
CPT/HCPCS: 80305; G0480

== ENCOUNTER 2017-05-17 13:20 | Inpatient (IN) | payer OTHER, MEDICAID ==
[2017-05-17] MEDS ORDERED: IBUPROFEN 600 MG TAB PO ONE ×2 (14:24→14:25)
[2017-05-17] MEDS ORDERED: OLANZapine 5 MG TAB PO ONE (15:17)
--- NOTE | 2017-05-17 15:21 | EDPHY ---
H & P Smoking Status: Never smoked Time Seen by Provider: 05/17/17 15:10 HPI/ROS: CHIEF COMPLAINT: Paranoia, back pain HISTORY OF PRESENT ILLNESS: 46-year-old male with history of paranoid schizophrenia presents with paranoia and low back pain. He was admitted 2016 through 05/11/2017 for acute psychosis. He was discharged home on Zyprexa 10 mg at night. He did not feel this medication. Since then he has been living on the street and has been quite paranoid. He denies hallucinations. He also has low back pain, that increases with movement. No known injury. No suicidal or homicidal ideation. REVIEW OF SYSTEMS: Constitutional: No fever, no chills Eyes: No visual changes ENT: No sore throat Respiratory: No cough, no shortness of breath Cardiac: No chest pain Gastrointestinal: No nausea, no vomiting, no abdominal pain Genitourinary: no dysuria Musculoskeletal: No leg pain or swelling Skin: No rash Neurological: No headache Psychiatric: No depression (Marcy Kam) Past Medical/Surgical History: Schizophrenia (Marcy Kam) Social History: Homeless (Marcy Kam) Physical Exam: General Appearance: Alert, agitated Eyes: Pupils equal and round, 4 mm, no conjunctival pallor or injection ENT, Mouth: Mucous membranes moist Neck: Normal inspection Respiratory: Lungs are clear to auscultation Cardiovascular: Regular rate and rhythm Gastrointestinal: Abdomen is soft and nontender Back: Normal inspection, lumbar paraspinous tenderness Neurological: Alert, oriented x3, cranial nerves II through XII intact, motor 5 /5, sensory intact to light touch, normal gait Skin: Warm and dry, no rash Extremities: Nontender, no pedal edema Psychiatric: agitated and paranoid (Marcy Kam S) Constitutional: Initial Vital Signs Temperature (C) 37.0 C 05/17/17 13:25 Heart Rate 93 05/17/17 13:25 Respiratory Rate 16 05/17/17 13:25 Blood Pressure 126/80 H 05/17/17 13:25 O2 Sat (%) 96 05/17/17 13:25 O2 Delivery Mode Room Air Allergies/Adverse Reactions: No Known Allergies Allergy (Unverified 04/12/17 16:27) Medical Decision Making ED Course/Re-evaluation: Patient with schizophrenia presents with psychosis. It is unclear what his baseline psych status is and whether he is worse than usual. He is not suicidal or homicidal. Zyprexa 10 mg orally given. According to past medical record, he does well on Zyprexa. He will clearly need a mental health evaluation once he is medically cleared. 6:15 p.m.-seen by mental health and felt appropriate for inpatient mental health disposition. An M1 hold was placed. (Marcy Kam) 2315: Patient with debilitating schizophrenia. Disorganized. Given 10 mg Zyprexa earlier. On M1 hold. Pending inpatient psychiatric admission. Signed over at 11pm To Dr. Rao Emery. (Jeffery Carrasquillo) Other Provider: 2315 care assumed by me from Dr. Carrasquillo pending placement. 0[address] Pt signed out to Dr Prater pending placement, no issues during my care overnight. (Femi Emery) I assumed care of the patient at 0700 pending psychiatric placement Update at 10:20 a.m.: The patient has been accepted for inpatient psychiatric hospitalization by Dr. Tariq Castaneda at our inpatient psychiatric unit. I have filled out the EMTALA transfer form. (Robi Prater) - Data Points Laboratory Results: Laboratory Results 05/17/17 15:44 05/17/17 15:44 Medications Given: Discontinued Medications Acetaminophen (Tylenol) 650 mg PO EDNOW ONE Stop: 05/18/17 10:02 Last Admin: 05/18/17 10:05 Dose: 650 mg Ibuprofen (Motrin) 600 mg PO EDNOW ONE Stop: 05/17/17 14:26 Last Admin: 05/17/17 14:45 Dose: 600 mg Olanzapine (Olanzapine) 10 mg PO EDNOW ONE Stop: 05/17/17 15:18 Last Admin: 05/17/17 15:45 Dose: 10 mg Olanzapine (Olanzapine) 10 mg PO ONCE ONE Stop: 05/18/17 10:00 Last Admin: 05/18/17 10:04 Dose: 10 mg Departure - Departure Disposition: [facility] IP Clinical Impression: Acute psychosis, Schizophrenia, disorganized Condition: Fair Referrals: Patient,NotPresent [Primary Care Provider] - As per Instructions
[2017-05-17 15:55] LABS: % IMMATURE GRANULYOCYTES 0.3 % (0.0-1.1); ABSOLUTE IMMATURE GRANULOCYTES 0.02 10^3/uL (0.00-0.10); ADD DIFF? NO; ADD MORPH? NO; ADD SCAN? NO; ATYPICAL LYMPHOCYTE FLAG 10 (0-99); FRAGMENT RBC FLAG 0 (0-99); HEMATOCRIT 46.8 % (40.0-51.0); HEMOGLOBIN 16.3 g/dL (13.7-17.5); LEFT SHIFT FLG 0 (0-99); LIPEMIA HEMOLYSIS FLAG 90 (0-99); MEAN CELL HEMOGLOBIN 32.1 pg (27.9-34.1); MEAN CELL HEMOGLOBIN CONCENTR. 34.8 g/dL (32.4-36.7); MEAN CELL VOLUME 92.1 fL (81.5-99.8); PLATELET CLUMPS FLAG 0 (0-99); PLATELET COUNT 226 10^3/uL (150-400); RED BLOOD CELL COUNT 5.08 10^6/uL (4.40-6.38); RED CELL DISTRIBUTION WIDTH 12.4 % (11.5-15.2)
[2017-05-17 16:15] LABS: ANION GAP 17 mEq/L (8-16); CALCIUM 9.5 mg/dL (8.5-10.4); CARBON DIOXIDE 24 mEq/l (22-31); CHLORIDE 97 mEq/L (97-110); CREATININE 0.8 mg/dL (0.7-1.3); ETHANOL SERUM < 10 mg/dL (0-10); GLOMERULAR FILTRATION RATE > 60; GLUCOSE 111 mg/dL (70-100); POTASSIUM 3.9 mEq/L (3.5-5.2); SODIUM 138 mEq/L (134-144)
[2017-05-18] MEDS ORDERED: OLANZapine 5 MG TAB PO ONE (09:59)
[2017-05-18] MEDS ORDERED: ACETAMINOPHEN 325 MG TAB PO ONE (10:01)
[2017-05-18] MEDS ORDERED: MAGNESIUM HYDROXIDE 30 ML UDCUP PO PRN (19:13)
[2017-05-18] MEDS ORDERED: LORazepam 0.5 MG TAB PO PRN (19:13)
[2017-05-18] MEDS ORDERED: NICOTINE POLACRILEX 2 MG GUM B PRN (19:13)
[2017-05-18] MEDS ORDERED: OLANZapine DISINTEGR 10 MG TAB PO PRN (19:13)
[2017-05-18] MEDS ORDERED: MAG HYDROX/AL HYDROX/SIMETH 30 ML UDCUP PO PRN (19:13)
[2017-05-19] MEDS ORDERED: ACETAMINOPHEN 160 MG/5 ML UDCUP PO PRN (12:42)
[2017-05-19] MEDS ORDERED: ACETAMINOPHEN 325 MG TAB PO PRN (12:52)
--- NOTE | 2017-05-19 13:25 | BAPA ---
[f rep st] ADMISSION PSYCHIATRIC ASSESSMENT DATE OF SERVICE: 05/19/2017 REASON FOR ADMISSION: The patient is a 46-year-old, male with a history of chronic paranoi d schizophrenia, who was admitted from the emergency department after having been brought in by Mark fuller. He had come to the unit where he had only been discharged 2 days before, appearing disheveled an d disorganized, and saying that he had back pain. The staff called the ambulance. He was taken to [facility] emergency department for evaluation. He had been living on the streets since discharge from the [facility], and admitted to not taking any medications. He denied any drug use and his drug screen was negative for all substances. He was very disorganized and could not give a reasonable history of any kind in the ER and was felt to be gravely disabled. He was readmitted on an M1 hold for further sharri luation and treatment. PAST PSYCHIATRIC HISTORY: Significant for numerous previous inpatient hospitalizations. This is his 4th hospitalization here since February. He was here from 02/26 to 03/16, 04/13 to 04/29, and 05/04 to 05/12 of 2016. He is currently an open client with [facility], though it is unclear whet her he was following up with them. On the day of his most recent discharge, the care specialist sidney ked him to his outpatient appointment and sat there with him until he went into the appointment, so w onel know he went to that, and that was only 2 days prior to representing here. ALLERGIES: No known medical allergies. CURRENT MEDICATIONS: The patient was discharged on Zyprexa 10 mg q.h.s., though he stated he was not taking it. PAST MEDICAL HISTORY: Noncontributory. No acute illness. SOCIAL HISTORY: The patient is homeless, lives out of his van. His van has been in a repair shop lo t for approximately a month, due to some mechanical issues, and he is not currently able to access it . His closest contact is his father who lives in [place], [place]. His father has offered for the pa tient to come and live with him several times over the last 3 months, but then also has rescinded rosio t several times, so it is unclear whether that is a standing offer or not. The patient's mother live s in [place] and has voiced support for him, but only if he is stable and out of the hospital. SUBSTANCE ABUSE HISTORY: The patient has a history of marijuana use, though denies recent use. ADMITTING LABORATORY: CBC is normal. Serum chemistries are normal. Urine drug screen shows no subs tances of abuse. Alcohol is less than detectable. MENTAL STATUS EXAMINATION: Reveals a marginally groomed, healthy-appearing, male. He is n oted to be sitting in the day room reading a newspaper, interacting with fellow patients, until I duy becker him and call him by name. At that point, he begins looking randomly in the air and side to manish e, as if he does not know where he is, and acts as if he cannot make eye contact with me or perceive the situation. I persist until he does make eye contact and states to me that he prefers to stay whe re he is, but can not or will not answer other specific questions. I then leave and come back and no shelbi him to be casually reading the newspaper again. His affect is blunted, stable and appropriate. His mood is not stated. His thought process is very disorganized when I approach him, though clearly organized while he is reading the newspaper. He does not endorse any auditory, visual or tactile quintana llucinations. The patient appears to be disoriented and somewhat bewildered when I approach him, davin reyna does not appear this way when observed from afar. The patient voices no thoughts of suicide, rocío icide or violence. IMPRESSION: Schizophrenia, paranoid type, chronic, with acute exacerbation. Possible cannabis use d isorder versus substance unknown use disorder. Homelessness. Chronic illness. Recurrent illness. Recurrent hospitalization. Lack of supports. The patient is a 46-year-old, male with a history of schizophrenia. He presents again afte r having just been discharged from the unit. This is his 4th hospitalization in 3 months and he is u nable to be out of the hospital for more than a week at that time. He clearly stabilizes when he is in the hospital, returning to a normal baseline, with no residual symptoms. He then completely decom pensates within 2 days of discharge, indicating that some other factors are at play. This would not be the natural course of any psychotic illness, including schizophrenia, without some exacerbating fa ctor. Those factors could include some form of substance use that we are not able to detect on our d rug screen, some other toxic exposure, such as possibly carbon monoxide in his van, if he has been sl eeping in there, through an exhaust leak, or some other unknown toxic or metabolic factor. His labs are normal, so I do not suspect that he has some other metabolic problem, but I would question the po ssibility of his surreptitious use of the synthetic cannabinoids or some other drug that we were not able to test for. The other option would be that his symptoms are factitious and that he is malinger ing in order to have a place to stay. There is certainly evidence now of that. His presentation is quite dramatic, though when he is not being directly addressed, he seems to function normally. If th is is the case, then that will help us in future evaluations. We will make every effort to meet his psychosocial needs, though we will not utilize our inpatient beds for housing purposes. PLAN: 1. [facility] on an M1 hold. 2. Restart Zyprexa 10 mg q.h.s. 3. Monitor for any behavioral problems, as he has exhibited some impulsive behaviors thus far. 4. Continue serial evaluations, both directly and indirectly, to better understand the consistency o f his presentation and the possibility of any factitious symptoms or malingering. 5. Estimated length of stay is 3-5 days. /[id number]/MODL
--- NOTE | 2017-05-19 13:45 | BCON ---
[f rep st] BEHAVIORAL HEALTH CONSULTATION INTERNAL MEDICINE CONSULTATION DATE OF CONSULTATION: 05/19/2017 REFERRING PHYSICIAN: Tariq Castaneda MD REASON FOR REFERRAL: Medical clearance for inpatient behavioral health stay. HISTORY OF PRESENT ILLNESS: This patient came to the [facility] Emergency Department with paranoia and low back pain. He had been discharged 6 days previously from inpatient rehabilitation after an admission for acute psychosis. He was discharged home with a prescription for olanzapine, which he did not fill, and he has been homeless. He was evaluated by the mental health team and admitted for further psychiatric care. He currently complains of right ankle pain. He is vague about the duration and about whether or not he injured it. At one point, he states that he injured it from a fall while rock climbing, another time, he says he must have turned his ankle, but does not remember the circumstances. PAST MEDICAL HISTORY: 1. Schizophrenia. 2. Possible coronary artery disease. 3. Dyslipidemia. 4. Cervical disk disease. PAST SURGICAL HISTORY: Bilateral knee surgeries. MEDICATIONS: He was prescribed olanzapine, but he was not taking it. ALLERGIES: There are no known drug allergies. SOCIAL HISTORY: He is homeless, and lives out of his van. He does not use drugs or alcohol. He is a smoker. FAMILY HISTORY: Noncontributory. REVIEW OF SYSTEMS: Limited due to patient's distractibility, other than ankle pain, however, he reports no dyspnea or cough. Good appetite. No chest pain or palpitations. No nausea, vomiting, constipation, or diarrhea. PHYSICAL EXAM: VITAL SIGNS: Blood pressure is 116/79, heart rate is 73, respiratory rate is 14, oxygen saturation is 93% on room air. Temperature is 36.6 degrees centigrade. His weight is 74.8 kg for a body mass index of 24.4. GENERAL: This is a well-nourished, well-developed man, cooperative, and in no acute distress. HEENT: Extraocular movements are intact. Pupils are equal, round, reactive to light. Mucous membranes are moist. Dentition is in good condition. NECK: Supple. HEART: Regular rate and rhythm, with no murmurs, rubs, or gallops. LUNGS: Clear to auscultation bilaterally. ABDOMEN: Soft, nontender, nondistended with normoactive bowel sounds. EXTREMITIES: There is no cyanosis, clubbing, or edema. There is minor swelling distal to the left lateral ankle malleolus. There is no bony tenderness at either ankle malleolus or over the bones of the forefoot. There is tenderness distal to the lateral malleolus. Patient has an antalgic gait, favoring the right foot. NEUROLOGIC: He is alert. Orientation was not checked. He appears distracted, possibly by internal stimulus, and he is slow to respond to questions. Cranial nerves 2-12 are grossly intact. There is no focal weakness. Sensation is intact to light touch. Gait other than antalgic relative to the left ankle is overall normal. LABORATORY STUDIES: Drawn in the emergency department, his CBC was completely within normal limits. Serum chemistry revealed a slightly elevated anion gap at 17, otherwise renal function and electrolytes were within normal limits. Glucose was slightly elevated at 111, but this was likely not fasting. Toxicology screen in the serum was negative for ethyl alcohol, and the urine was negative for any substances of abuse. ASSESSMENT/RECOMMENDATIONS: 1. Left ankle pain. I will order an x-ray, though I doubt that there is a fracture present. However, given his lack of reliable history as to what might of happened, an x-ray is worthwhile. Additionally, I will order acetaminophen, if not already been ordered, and he can have ice if it is permissible on the inpatient behavioral health unit. 2. Possible history of coronary artery disease. There were lateral Q-waves seen on EKG that was done in March, indicating possible old UT, but he is without any symptoms of coronary artery disease. He has good blood pressure control. He can follow up after discharge with the primary care provider. 3. Dyslipidemia, on testing that was done in January of 2017, his cholesterol was 246. His LDL was 189, HDL was 40. Ten year cardiovascular risk was 4 to 7%. He would probably benefit from treatment with a statin medication. However, would not prescribe unless it was clear that he would be able to be compliant. I see no medical contraindications to this patient's continued stay on the inpatient behavioral health unit or to any psychiatric medications or procedures. Thank you very much for including me in the care of this patient and please do not hesitate to contact me or the hospitalist service should there be need for further medical evaluation. /[id number]/MODL MTDD
--- NOTE | 2017-05-20 16:55 | SOAPPROG ---
SOAP Progress Note Assessment/Plan: Assessment: Plan: 05/20/17 16:54 Clinical picture is still unclear. Acute psychosis vs. factitious illness/ malingering. Will CCM, monitor. Subjective: Pt seen, discussed with staff. Remains present in the milieu, cooperative today with no aggression. He continues to seem to avoid talking to me, saying very little and appearing quite disorganized when I attempt to speak with him. He is noted to read the paper and interact with others, however. Eating and sleeping normally. Objective: Vital Signs Temp Pulse Resp BP Pulse Ox 36.6 C 73 14 116/79 93 05/18/17 18:46 05/18/17 18:46 05/18/17 18:46 05/18/17 18:46 05/18/17 18:46 MSE: Adequately groomed, minimally interactive. Affect is constricted, stable. Mood is "OK." TP appears disorganized. TC reveals no mention of delusions or hallucinations. - Time Spent With Patient Time Spent With Patient: 15" ICD10 Worksheet Patient Problems: Problems Problem Status Onset Acute psychosis Acute Schizophrenia, disorganized Chronic Cannabis dependence in controlled environment Chronic
--- NOTE | 2017-05-21 13:12 | SOAPPROG ---
SOAP Progress Note Assessment/Plan: Assessment: Plan: 05/20/17 16:54 Clinical picture is still unclear. Acute psychosis vs. factitious illness/ malingering. Will CCM, monitor. 05/21/17 13:09 No real change. CCM. Subjective: Pt seen, discussed with staff. Reports feeling "OK." Remains disorganized, states he would like it if his brother would pick him up and take him to [place]. He is compliant with meds. Offers no c/o's. Objective: Vital Signs Temp Pulse Resp BP Pulse Ox 36.6 C 58 L 14 105/57 L 95 05/21/17 06:00 05/21/17 06:00 05/21/17 06:00 05/21/17 06:00 05/21/17 06:00 MSE: Calm, coop. Affect is constricted, stable. Mood is "OK." TP disorganized. TC reveals no mention of delusions or hallucinations. - Time Spent With Patient Time Spent With Patient: 15" ICD10 Worksheet Patient Problems: Problems Problem Status Onset Acute psychosis Acute Schizophrenia, disorganized Chronic Cannabis dependence in controlled environment Chronic
--- NOTE | 2017-05-22 18:15 | SOAPPROG ---
SOAP Progress Note Assessment/Plan: Assessment: Per Dr. Castaneda's note on 05/21/17: Plan: 05/20/17 16:54 Clinical picture is still unclear. Acute psychosis vs. factitious illness/ malingering. Will CCM, monitor. 05/21/17 13:09 No real change. CCM. Pt seen, discussed with staff. Reports feeling "OK." Remains disorganized, states he would like it if his brother would pick him up and take him to [place]. He is compliant with meds. Offers no c/o's. 05/22/17 18:08 1. No change in patient's presentation. He engages very little with MD. When asked any question, his response is "I'm doing better" or "I'm getting better." He presents much less disorganized, more alert and easier to engage when addressing peers or other staff. 2. Patient has demonstrated unwillingness to comply with any outpatient treatment. Unless family is willing to provide more supervision and monitoring of patient when he isn't in hospital, he's unlikely to improve or stay out of inpatient level of care, which he doesn't really need. He is not a DTS/DTO or gravely disabled (he manages to get his car to [employer] body shop and keep tabs on it as well as get to ED at least 5 times in past 2 months, this demonstrates a certain level of resourcefulness and awareness which does not seem in evidence when he gets evaluated in ED or admitted to ). Subjective: Met with patient, reviewed chart and discussed with staff. When MD attempted to interview patient, all he would say in response to questions was "I'm doing better." However, when MD observed him at other times, he interacted with much more spontaneity and fluent speech with peers and other staff. In fact, MD observed conversation he had with Jason, CC & group nursing technician, while patient was filling out his menu. He was bantering with Jason about the various food options and his opinion of each one. At the end of the conversation, Cachorroranjan made a sarcastic joke about Jason, the CC, losing his job if food wasn't up to patient's expectations. This showed a level of insight, verbal fluency and cognitive capacity not in evidence when patient was admitted or during any of his interactions with medical staff. This raises serious doubts in MD's opinion about whether patient is as disorganized or psychotic as he presents during his ED evaluations and psych evals. Patient currently denies any SI/HI. Objective: Vital Signs Temp Pulse Resp BP Pulse Ox 36.6 C 58 L 14 105/57 L 95 05/21/17 06:00 05/21/17 06:00 05/21/17 06:00 05/21/17 06:00 05/21/17 06:00 MSE: Pleasant, minimally cooperative, wary of conversing with MD. Affect: Euthymic Mood: "I'm doing better" TP: Disorganized TC: Denies SI/HI, denies any AH/VH, no paranoia, questionable delusions Insight/Judgment: Poor - Time Spent With Patient Time Spent With Patient: 20" - Pending Discharge Pending Discharge Within 24 Hours: No Pending Discharge Within 48 Hours: No ICD10 Worksheet Patient Problems: Problems Problem Status Onset Acute psychosis Acute Schizophrenia, disorganized Chronic Cannabis dependence in controlled environment Chronic
[2017-05-22] MEDS ORDERED: OLANZapine DISINTEGR 10 MG TAB PO PRN (18:23)
[2017-05-22] MEDS ORDERED: OLANZapine DISINTEGR 10 MG TAB PO SCH (21:00)
--- NOTE | 2017-05-23 15:42 | SOAPPROG ---
SOAP Progress Note Assessment/Plan: Assessment: Per Dr. Castaneda's note on 05/21/17: Plan: 05/20/17 16:54 Clinical picture is still unclear. Acute psychosis vs. factitious illness/ malingering. Will CCM, monitor. 05/21/17 13:09 No real change. CCM. Pt seen, discussed with staff. Reports feeling "OK." Remains disorganized, states he would like it if his brother would pick him up and take him to [place]. He is compliant with meds. Offers no c/o's. 05/22/17 18:08 1. No change in patient's presentation. He engages very little with MD. When asked any question, his response is "I'm doing better" or "I'm getting better." He presents much less disorganized, more alert and easier to engage when addressing peers or other staff. 2. Patient has demonstrated unwillingness to comply with any outpatient treatment. Unless family is willing to provide more supervision and monitoring of patient when he isn't in hospital, he's unlikely to improve or stay out of inpatient level of care, which he doesn't really need. He is not a DTS/DTO or gravely disabled (he manages to get his car to [employer] shop and keep tabs on it as well as get to ED at least 5 times in past 2 months, this demonstrates a certain level of resourcefulness and awareness which does not seem in evidence when he gets evaluated in ED or admitted to ). 05/23/17 15:36 1. Patient refused to take Zyprexa at . Since patient does not exhibit any positive sxs of psychosis at this time, MD does not feel antipsychotic is necessary. Will d/c. 2. Patient continues to have some thought disorganization, but he is much more coherent and logical when engaging with peers and staff. His presentation seems much different when interacting with MD. 3. Likely to d/c with family this week. Subjective: MD spoke to patient while he was in art therapy group. He was much more talkative and coherent when MD observed him participating in group. He was watching a YouTube video on iPad of Cici Bermeo. MD commented on how old the video was, and patient started talking about a "girlfriend I used to have who changed her hair to look like Cici Bermeo." He then went on for several minutes in very logical, coherent fashion to describe his girlfriend and how much he liked her appearance and how much watching the video brought back memories of that time in his life. No AH/VH, no paranoia, no obvious delusions, no paranoia, no SI/HI. Objective: Vital Signs Temp Pulse Resp BP Pulse Ox 36.7 C 74 12 123/66 H 96 05/23/17 06:00 05/23/17 06:00 05/23/17 06:00 05/23/17 06:00 05/23/17 06:00 MSE: Affect: Euthymic Mood: "OK" TP: More logical and linear TC: Denies any AH/VH, no paranoia, no SI/HI Insight/Judgment: Fair - Time Spent With Patient Time Spent With Patient: 20" - Pending Discharge Pending Discharge Within 24 Hours: No Pending Discharge Within 48 Hours: No ICD10 Worksheet Patient Problems: Problems Problem Status Onset Acute psychosis Acute Schizophrenia, disorganized Chronic Cannabis dependence in controlled environment Chronic
[2017-05-24 06:28] VITALS: BP 129/79; PULSE 67; RESP 14; TEMP 97.9; O2SAT 97
--- NOTE | 2017-05-24 15:54 | SOAPPROG ---
SOAP Progress Note Assessment/Plan: Assessment: Schizophrenia versus Schizoaffective Disorder Possible Malingering due to homelessness Patient has a history of numerous psychiatric hospitalizations for severe mental illness, non-compliant with outpatient treatment, currently homeless but has SS benefits. Patient is irritable and illogical at times but has been cooperative on unit, denies any recent dangerous thoughts or behaviors. Plan: Patient agreeable to take Olanzapine ODT 5mg PO QHS Reviewed [facility] handout on Olanzapine with patient, discussed risk of sedation, TD , metabolic syndrome Coordinate discharge with father in [place], who reportedly will assist with discharge to a motel on Wednesday05/26/17; will discuss with father that patient will likely need assistance in filling prescription and need pillbox organization and support with [employer] ([employer] consultant, meals, transportation ) after discharge 05/24/17 15:54 Subjective: "You don't know what you are talking about." Patient is a poor historian. Reports he has 'about one a year' psychiatric hospitalization since age 18, past diagnoses of Bipolar Disorder, Schizophrenia , and Schizoaffective Disorder. Requests lamictal, reports not wanting to take antipsychotic medications due to history of side effects but is willing to take Lamictal. Reports sleeping well and agreeable to discharge with father on Wednesday. Denies any physical complaints. Endorses apathy, disorganized thinking, and disorganized behavior prior to admission. Objective: Vital Signs Temp Pulse Resp BP Pulse Ox 36.6 C 67 14 129/79 H 97 05/24/17 06:00 05/24/17 06:00 05/24/17 06:00 05/24/17 06:00 05/24/17 06:00 Alert WM, disheveled, poor hygiene, ambulatory without weakness. Speech RRR, brief yelling. Mood 'you don't know what your talking about' Affect briefly irritable. Thoughts briefly organized but illogical with loose associations. Denies SI or HI or AH. Some paranoia about psychiatric medications. Limited/ poor insight. Judgment appropriate. - Time Spent With Patient Time Spent With Patient: 25 - Pending Discharge Pending Discharge Within 24 Hours: No Pending Discharge Within 48 Hours: Yes Pending Discharge Date: 05/26/17 Pending Discharge Time: 11:00 ICD10 Worksheet Patient Problems: Problems Problem Status Onset Schizophrenia, disorganized Chronic Acute psychosis Acute
[2017-05-24] MEDS: OLANZapine DISINTEGR 5 MG TAB PO SCH (21:50)
--- NOTE | 2017-05-25 12:15 | SOAPPROG ---
[facility] Progress Note Assessment/Plan: Assessment: Plan: 05/20/17 16:54 Clinical picture is still unclear. Acute psychosis vs. factitious illness/ malingering. Will [facility], monitor. 05/21/17 13:09 No real change. CCM. 05/25/17 12:15 Improved since last seen. Will [facility], plan for d/c tomorrow. Subjective: Pt seen, discussed with staff, chart reviewed. Reports feeling "pretty good." Lying in bed, refusing to go to group. Lucid and interactive with me. I gave him direct feedback about the necessity of participation in treatment if he is going to be in the hospital. He voices agreement with this. He is also agreeable to going with father tomorrow when he arrives. Appreciate feedback from Tila So and Nic. Objective: Vital Signs Temp Pulse Resp BP Pulse Ox 36.6 C 67 14 129/79 H 97 05/24/17 06:00 05/24/17 06:00 05/24/17 06:00 05/24/17 06:00 05/24/17 06:00 MSE: Calm, coop., unkempt. Affect is blunted, stable. Mood is "OK." TP linear. TC reveals no notable psychosis. Denies SI/HI/. - Time Spent With Patient Time Spent With Patient: 25" ICD10 Worksheet Patient Problems: Problems Problem Status Onset Acute psychosis Acute Schizophrenia, disorganized Chronic
[2017-05-25] MEDS: OLANZapine DISINTEGR 5 MG TAB PO SCH (19:39)
--- NOTE | 2017-05-26 17:14 | BDS ---
[f rep st] [facility] DISCHARGE SUMMARY REASON FOR ADMISSION: Patient is a 46-year-old male with history of chronic paranoid schiz ophrenia. He is admitted from the emergency department only 6 days after having been discharged from the inpatient unit. He has a history of 4 recurrent hospitalizations from 02/26/2017 to the current admission on 05/18/2017. In each case, he was stabilized completely on the inpatient unit, discharg ed with prescriptions and an outpatient plan, and quickly relapsed to severe disorganization and psyc hosis, and was brought in from the community after having been found in a debilitated state. In this circumstance, he was found in public unable to communicate and appeared to be disorganized and psych otic prompting them to place him on an M1 hold and bring him back to the ER. In the emergency depart ment, he was placed back on an M1 hold and admitted for further evaluation. Full description of the events preceding admission can be found in his admission history dated 05/19/2017. ADMITTING DIAGNOSES: 1. Schizophrenia, paranoid type, chronic with acute exacerbation. 2. Possible cannabis-use disorder versus substance unknown-use disorder. 3. Homelessness. 4. Chronic illness. 5. Recurrent illness. 6. Recurrent hospitalizations. 7. Lack of support. ADMITTING PHYSICAL EXAMINATION: Performed by Dr. Doron Mejia, revealed left ankle pain and no ot her acute physical findings. ADMISSION LABORATORY: CBC was normal. Serum chemistries showed no significant abnormalities. Urine drug screen was negative for all substances and alcohol was less than detectable. HOSPITAL COURSE: The patient was admitted to the [facility] inpatient unit on an M1 ho ld. He presented as extremely disorganized, though was adequately groomed and had gotten his hair cu t. He was noted to interact adequately with fellow patients, and seemed to me to essentially pretend to be sicker than he was when I interviewed him or he interacted with other staff. An example is th at he was noted on the first day of admission, to be sitting quietly in the day room reading a newspa per until I approached him, and he began to look around the room as if he were confused and acted as if he was unable to speak. I repeatedly asked him to come with me to be interviewed, and he acted as if he did not understand. I told him I would return later, and as I watched him, he quickly returne d to his normal countenance and began again reading the newspaper. Later, I observed him speaking no rmally with other patients. Staff's experience mirrored this on several occasions during his stay. I asked Dr. So to evaluate this also, as he was covering a weekend during the patient's hospitaliza tion, and he agreed that the symptoms seemed exaggerated and directed. This is important, because it is very difficult understand how the patient could stabilize completely and within a course of only several days completely decompensate in the absence of any identifiable substance use. This being sa id, he remains dependent on the system for most of his support, and efforts were re-doubled in search ing for primary supports. In the last several hospitalizations, patient's family was contacted (specifically his father and his brother) and they voiced a desire to help him but were also somewhat ambivalent, stating at one poin t that he could come live with them and at another point that he could not; this pertained mostly to his father. In this stay, manager critical care was perhaps more insistent with father who then agreed to come to [place] on a [employer] bus, obtain the patient physically and help him either get set up in the community or take him back to the [place] area where he lives. This was eventually arranged, and gloria felipe was discharged with his father on the day of discharge. Patient's hospitalization was uncomplicated. We restarted his Zyprexa, which he continued to resist somewhat. He, as in previous hospitalizations, insisted on changing the schedule or dose on a near d aily basis until I set a firm limit with him. Unbeknownst to me, he had convinced Dr. Lucero to dec rease from 10 to 5, but then on discharge I informed him we would be increasing back to 10 mg as this has been the consistent dose he has had over time. CONDITION ON DISCHARGE: Stable. His affect was euthymic, stable, and appropriate. His thought proc ess was linear and goal directed, and he was voicing no signs or symptoms of overt psychosis. DISCHARGE MEDICATION: Zyprexa 10 mg p.o. q.h.s. DISCHARGE DIAGNOSES: 1. Schizophrenia, paranoid type, chronic with acute exacerbation. 2. Homelessness. 3. Chronic illness. 4. Recurrent illness. 5. Lack of supports. 6. Possible malingering. DISPOSITION: Patient left the hospital with his father. FOLLOWUP: [facility] as scheduled by manager critical care. LEGAL COURSE: Patient was converted to a voluntary status with the expiration of his M1 hold. /[id number]/MODL
== END 2017-05-26 14:10 | disposition home or self-care (01) | DRG 885 ==
LOC: EDUNIT# → BBEH 05-18 17:10
PROVIDERS: ADMIT Psychiatry & Neurology Psychiatry; ATTEND Psychiatry & Neurology Psychiatry
DX: F20.0 Paranoid schizophrenia (principal); F17.210 Nicotine dependence, cigarettes, uncomplicated; E78.5 Hyperlipidemia, unspecified; Z59.0 Homelessness
CPT/HCPCS: 80305; G0480

== ENCOUNTER 2018-01-30 18:08 | Emergency (ER) | payer OTHER, MEDICAID ==
[2018-01-30] MEDS ORDERED: OLANZapine DISINTEGR 10 MG TAB PO ONE (18:30)
[2018-01-30] MEDS ORDERED: NS 1,000 ML IV ONE (18:30)
--- NOTE | 2018-01-30 18:31 | EDPHY ---
HPI/HX/ROS/PE/MDM Narrative: CHIEF COMPLAINT: Altered mental status, mental health history HISTORY OF PRESENT ILLNESS: The patient is a homeless 47 y/o male with a history of schizophrenia arriving via EMS for altered mental status. EMS reports he called them this evening and was confused. They report he was living in his van in the [employer] parking lot. According to EMS he was speaking nonsensically, clearly gravely disabled, and was brought to the emergency department. There has been no reported drug use. No reported trauma. Patient can provide no useful information. He can tell me his name. Other than that he is alert, appears to be trying to talk to me, at 1 point mentioned shadow boxing and I question whether he is having hallucinations, he seems somewhat upset by his confused state. All information obtained through EMS due to patient's mental status. Patient's records were reviewed. He was last admitted to our facility in May 2017 and was discharged on Zyprexa, to follow up at [facility], at that time had been discharged to the care of his father. Patient himself cannot tell me whether he is taking his Zyprexa are not. He cannot really answer any questions. REVIEW OF SYSTEMS: Unobtainable due to patient's altered mental status. PAST MEDICAL HISTORY: Schizophrenia SOCIAL HISTORY: Homeless, living in his van, medicaid patient VITAL SIGNS: Reviewed by me GENERAL: Well-developed, well-nourished, anxious, paranoid. HEENT: Atraumatic. Eyes: PERRL, EOMI, no nystagmus. Mouth: Dry lips, moist mucous membranes. No erythema or lesions. Neck: supple with no adenopathy. LUNGS: Clear to auscultation bilaterally, no wheezes, rhonchi or rales. CARDIAC: Regular rate and rhythm, no rubs, murmurs or gallops. ABDOMEN: Soft, nontender, nondistended, bowel sounds normal. BACK: No CVA tenderness. EXTREMITIES: No trauma. No edema. Range of motion is normal throughout. Moving all four extremities equally. NEURO: Alert and oriented to person, grossly nonfocal. SKIN: Warm and dry, no rash. PSYCHIATRIC: Unable to assess, seems paranoid, non-linear thought process. (Sheri Stevens) ED Course: The patient presents from EMS. He is speaking incoherently and appears to almost have word salad, as such all information is obtained through EMS. They report he called 911 and was incoherent. They found him in the parking lot of [employer] and he appeared to be living out of his van. On exam, he appears uninjured. Plan for CBC, basic metabolic panel, drug screen , head CT, 10 mg Zyprexa, and 1 L NS fluids. Patient's labs are largely unremarkable. Urine tox is pending at the time of this dictation. Patient was placed on a 72 hr mental health hold by myself. His care was assumed by Dr. Whitlock at 9:00 p.m.. He will need evaluation by [facility] and admission most likely. (Sheri Stevens) 6:30 a.m.- The patient was stable throughout my shift and slept for much of it. He has not required any ongoing medications. He is awaiting mental health evaluation. I anticipate at 7:00 a.m. The case will be turned over to the oncoming provider Dr. John. (Juana Pascual) Stable during my brief oversite of patient. Expect psychiatric admission needed. Discussed with Dr. Pascual. (Damaris Whitlock) Patient evaluated at 8:00 a.m.. He was resting comfortably. He had no complaints that he relayed to me. Lungs are clear. Heart are regular rate and rhythm. He received Zyprexa around 6:00 p.m. Yesterday. Awaiting evaluation. 2:45 p.m.. No changes in patient's condition during my shift. His care is being transferred to the incoming physician at 3:00 p.m.. His evaluation has been performed. He is being transferred to [facility] for inpatient treatment. I have completed the EMTALA form. (Ida John) MDM: Differential diagnosis of the patient's acute psychosis including but not limited to chronic psychosis, medication noncompliance, medication side effect, depression and illicit drug use. (Sheri Stevens) - Data Points Laboratory Results: Laboratory Results 01/30/18 18:45 01/30/18 18:45 Medications Given: Discontinued Medications Sodium Chloride (Ns) 1,000 mls @ 0 mls/hr IV ONCE ONE; Wide Open PRN Reason: Protocol Stop: 01/30/18 18:31 Last Admin: 01/30/18 18:35 Dose: 1,000 mls Olanzapine (Zyprexa Zydis) 10 mg PO EDNOW ONE Stop: 01/30/18 18:31 Last Admin: 01/30/18 18:36 Dose: 10 mg Olanzapine (Zyprexa Zydis) 10 mg PO EDNOW ONE Stop: 01/31/18 12:26 Last Admin: 01/31/18 12:30 Dose: 10 mg General Time Seen by Provider: 01/30/18 18:12 Initial Vital Signs: Initial Vital Signs Temperature (C) 37.1 C 01/30/18 18:27 Heart Rate 91 01/30/18 18:27 Respiratory Rate 18 01/30/18 18:27 Blood Pressure 94/66 L 01/30/18 18:27 O2 Sat (%) 97 01/30/18 18:27 O2 Delivery Mode Room Air Allergies/Adverse Reactions: No Known Allergies Allergy (Unverified 04/12/17 16:27) Home Medications: Medication Instructions Recorded OLANZapine [Zyprexa] 10 mg PO HS #30 tablet 05/26/17 Departure - Departure Disposition: Acute Care [facility] Clinical Impression: Schizophrenia, disorganized, Acute psychosis Condition: Fair Instructions: Psychotic Disorder (ED) Referrals: NONE *PRIMARY CARE P,. [Primary Care Provider] - As per Instructions Report Scribed for: Sheri Stevens Report Scribed by: Eneida Langston Date of Report: 01/30/18 Time of Report: 18:58 Physician Review and Approval Statement: Portions of this note were transcribed by a medical assistant internal medicine. I personally performed a history, physical exam, medical decision making, and confirmed accuracy of information the transcribed note.
[2018-01-30 19:02] LABS: PLATELET COUNT 223 10^3/uL (150-400)
[2018-01-30] MEDS ORDERED: CALCIUM CARBONATE 500 MG CHEWABLE TAB PO ONE (19:23)
[2018-01-31] MEDS ORDERED: OLANZapine DISINTEGR 10 MG TAB PO ONE (12:25)
[2018-01-31 16:45] VITALS: BP 109/64
== END 2018-01-31 15:25 | disposition short-term general hospital (02) ==
LOC: EDUNIT#
DX: F20.1 Disorganized schizophrenia (principal); E86.9 Volume depletion, unspecified
CPT/HCPCS: 80305; G0480

== ENCOUNTER 2018-02-19 11:17 | Inpatient (IN) | payer OTHER, MEDICAID ==
--- NOTE | 2018-02-19 11:35 | CPEKG ---
Heart Rate: 89 RR Interval: 674 P-R Interval: 136 QRSD Interval: 78 QT Interval: 364 QTC Interval: 443 P Hope: 56 QRS Hope: 69 T Wave Hope: 36 EKG Severity - NORMAL ECG - EKG Impression: SINUS RHYTHM Electronically Signed By: Juliocesar De La Torre 24-Feb-2018 22:04:31
[2018-02-19] MEDS ORDERED: OLANZapine DISINTEGR 5 MG TAB PO ONE (11:51)
--- NOTE | 2018-02-19 11:56 | EDPHY ---
H & P Stated Complaint: Feels clammy,suffocating,dry mouth,"my psych meds are @[facility]" Source: Patient Exam Limitations: No limitations - Personal History Current Tetanus Diphtheria and Acellular Pertussis (TDAP): Yes - Medical/Surgical History Hx Asthma: No Hx Chronic Respiratory Disease: No Hx Diabetes: No Hx Cardiac Disease: No Hx Renal Disease: No Hx Cirrhosis: No Hx Alcoholism: No Hx HIV/AIDS: No Hx Splenectomy or Spleen Trauma: No Other PMH: bipolar, schizoaffective, cervical fusion c5/6, herpes simplex, anxiety, ETOH and Cocain use, KNEE AND HAND SURGERIES - Social History Smoking Status: Never smoked Time Seen by Provider: 02/19/18 11:49 HPI/ROS: CHIEF COMPLAINT: "I need water, it is in emergency" HISTORY OF PRESENT ILLNESS: The patient is a homeless schizophrenic who presents to the ED with confusion, mild agitation requesting water and reporting anxiety. The patient reports he was recently hospitalized at [facility]. He believes he left 1 week ago. The patient reports he is taking no current psychiatric medications. The patient denies any history of fall or trauma. The patient denies any fever. He denies dysuria. He denies additional acute complaints. REVIEW OF SYSTEMS: A comprehensive 10 point review of systems is otherwise negative aside from elements mentioned in the history of present illness. (Robi Prater) - Physical Exam Exam: General Appearance: Disheveled, no acute distress, cooperative Eyes: Pupils equal and round no pallor or injection ENT, Mouth: Mucous membranes moist Respiratory: There are no retractions, lungs are clear to auscultation Cardiovascular: Regular rate and rhythm Gastrointestinal: Abdomen is soft and nontender, no masses, bowel sounds normal Neurological: 5/5 strength all 4 extremities Skin: Warm and dry, no rashes Musculoskeletal: Neck is supple nontender Extremities: symmetrical, full range of motion Psychiatric: Slightly agitated, denies suicidal or homicidal ideation, anxious (Robi Prater) Constitutional: Initial Vital Signs Temperature (C) 36.7 C 02/19/18 11:18 Heart Rate 94 02/19/18 11:18 Respiratory Rate 18 02/19/18 11:18 Blood Pressure 139/77 H 02/19/18 11:18 O2 Sat (%) 94 02/19/18 11:18 O2 Delivery Mode Room Air Allergies/Adverse Reactions: No Known Allergies Allergy (Verified 02/19/18 11:18) Home Medications: Medication Instructions Recorded NK [No Known Home Meds] 02/19/18 Medical Decision Making ED Course/Re-evaluation: I reviewed the patient's past medical records including his prior ED visit when he was transferred to [facility]. The patient is quite agitated and confused. He received 5 mg of Zyprexa. The patient is a homeless schizophrenic likely off medications who presents to the ED with acute decompensation. The patient was evaluated by [facility] and will be placed on an M1 psychiatric hold. They will seek inpatient psychiatric hospitalization. The patient will be turned over to Dr. Marvin Banegas at shift change pending psychiatric placement. (Robi Prater) Differential Diagnosis: Differential diagnosis considered includes schizophrenia dehydration, substance abuse, metabolic derangement (Robi Prater) Other Provider: Care assumed at [address] Prater with plan for psychiatric evaluation for this patient with schizophrenia. 193: The patient will be transferred to [place] for inpatient psychiatric hospital bed not available at this facility, in stable condition; accepting physician is Dr. So. EMTALA form completed. (Marvin Banegas) - Data Points Laboratory Results: Laboratory Results 02/19/18 11:35 02/19/18 11:35 02/19/18 02/19/18 02/19/18 12:05 11:35 11:35 WBC 7.45 10^3/uL 10^3/uL (3.80-9.50) RBC 4.87 10^6/uL 10^6/uL (4.40-6.38) Hgb 15.7 g/dL g/dL (13.7-17.5) Hct 43.5 % % (40.0-51.0) MCV 89.3 fL fL (81.5-99.8) MCH 32.2 pg pg (27.9-34.1) MCHC 36.1 g/dL g/dL (32.4-36.7) RDW 12.5 % % (11.5-15.2) Plt Count 243 10^3/uL 10^3/uL (150-400) MPV 11.0 fL fL (8.7-11.7) Neut % (Auto) 70.8 % % (39.3-74.2) Lymph % (Auto) 19.9 % % (15.0-45.0) Lane % (Auto) 7.8 % % (4.5-13.0) Eos % (Auto) 0.8 % % (0.6-7.6) Baso % (Auto) 0.4 % % (0.3-1.7) Nucleat RBC Rel Count 0.0 % % (0.0-0.2) Absolute Neuts (auto) 5.28 10^3/uL 10^3/uL (1.70-6.50) Absolute Lymphs (auto) 1.48 10^3/uL 10^3/uL (1.00-3.00) Absolute Monos (auto) 0.58 10^3/uL 10^3/uL (0.30-0.80) Absolute Eos (auto) 0.06 10^3/uL 10^3/uL (0.03-0.40) Absolute Basos (auto) 0.03 10^3/uL 10^3/uL (0.02-0.10) Absolute Nucleated RBC 0.00 10^3/uL 10^3/uL (0-0.01) Immature Gran % 0.3 % % (0.0-1.1) Immature Gran # 0.02 10^3/uL 10^3/uL (0.00-0.10) Sodium 137 mEq/L mEq/L (135-145) Potassium 4.4 mEq/L mEq/L (3.3-5.0) Chloride 106 mEq/L mEq/L (97-110) Carbon Dioxide 17 mEq/l L mEq/l (22-31) Anion Gap 14 mEq/L mEq/L (8-16) BUN 15 mg/dL mg/dL (7-23) Creatinine 0.7 mg/dL mg/dL (0.7-1.3) Estimated GFR > 60 Glucose 81 mg/dL mg/dL (70-100) Calcium 9.6 mg/dL mg/dL (8.5-10.4) Urine Opiates Screen NEGATIVE (NEGATIVE) Urine Barbiturates NEGATIVE (NEGATIVE) Ur Phencyclidine Scrn NEGATIVE (NEGATIVE) Ur Amphetamine Screen NEGATIVE (NEGATIVE) U Benzodiazepines Scrn NEGATIVE (NEGATIVE) Urine Cocaine Screen NEGATIVE (NEGATIVE) U Marijuana (THC) Screen NEGATIVE (NEGATIVE) Ethyl Alcohol < 10 mg/dL mg/dL (0-10) Medications Given: Discontinued Medications Olanzapine (Zyprexa Zydis) 5 mg PO EDNOW ONE Stop: 02/19/18 11:52 Last Admin: 02/19/18 11:57 Dose: 5 mg Departure - Departure Disposition: [facility] Clinical Impression: Schizophrenia, disorganized Condition: Fair Referrals: NONE *PRIMARY CARE P,. [Primary Care Provider] - As per Instructions
[2018-02-19 11:57] LABS: PLATELET COUNT 243 10^3/uL (150-400)
--- NOTE | 2018-02-19 19:52 | ASMTTLCEVL ---
[facility] Evaluation - Basic Information Evaluation Start Date and 02/19/2018 06:00 PM Time Hospital Status Answers: M1 Hold 72-hr M1 Hold Start Date 02/19/2018 03:00 PM and Time Patient statement Notes: "I NEED WATER, IT IS IN EMERGENCY" Narrative Notes: PT IS A 47 Y/O CACASIAN, SINGLE, UNEMPLOYED, HOMELESS MALE WITH A HISTORY OF SCHIZOPHRENIA, PARANOID TYPE, AND IS AN OPEN CLIENT AT [facility]. PER [facility] REPORT "PT WAS RECENLY DISCHARGED FROM A WEEK AGO, AND IS NOT TAKING ANY MEDS, DOESN'T KNOW WHAT WAS RX'D, AND THAT HAS THEM. PT REPORTED HE FEELS WORSE THEN HE DID WHEN HE ENTERED . PT SAYS HE HAS NOT SLEPT IN DAYS, BUT DOES NOT KNOW HOW LONG. PT SAYS HE CAN'T SLEEP DUE TO "CLIMBING" PT STATED "I NEED 3N TO HELP MY BLOOD" PT STATED DATE IS WEDNESDAY THE 1988 DURING THE EVALUATION. PT IS LAYING DOWN AWAY FROM BORDERER AND GIVES MOSTLY RUTH ANN "YES,NO, I DON'T KNOW' ANSWERS TO ALL QUESTIONS. PT INITIALLY DENIED FEELING PARANOID , BUT THEN REPROTED FEELING LIKE PEOPLE ARE WATCHING HIM. PT REPEATED I DON'T FEEL RIGHT, MY BICEPS ARE SORE" PT DENEID AH/VH/SI/HI. [facility] ED ADMISTERED 5MG ZYPREXA TO HELP CT FROM BEING SO AGITATED. PT HAS BEEN STRUGGLING WITH SX RELATED TO SCHIOAFFECTIVE DO INCLUDING PARANOIA, ANXIETY, DISORGANIZED, AND TANGETNAL THOUGHTS, HE HAS LITTLE INSIGHT ABOUT HIS CONDITION, AND DOES NOT REMAIN MED COMPLAINT WHEN OUT OF THE HOSPITAL. HE REPORTED NOT SLEEPING FOR UNKNONW NUMBER OF DAYS AND PRESENTED TODAY VERY SLEEPY, YET AGITATED, AND ANXIOUS. PT RESPONDED TO EVALUATION QUESTION WITH NON-SENSICAL ANSWERS, OR SIMPLY SAYS "NO, I DON'T KNOW" WHEN PT IS AT BASELINE HE IS ABLE TO WORK, AND TAKE CARE OF ADLS. PT CURRENTLY DECOMPENSATED, OFF BASELINE AND REQUIRS A HIGHER LEVEL OF CARE IN ORDER TO BECOME MED COMPLIANT AND RESTABILIZE. PER ED REPORT "The patient is a homeless schizophrenic who presents to the ED with confusion, mild agitation requesting water and reporting anxiety. The patient reports he was recently hospitalized at [facility]. He believes he left 1 week ago. The patient reports he is taking no current psychiatric medications. The patient denies any history of fall or trauma. The patient denies any fever. He denies dysuria. He denies additional acute complaints." Diagnosis History Notes: PT HAS A DIAGNOSIS OF SCHIZOAFFECTIVE DISORDER, BIPOLAR TYPE. RESPONDENT IS CONFUSED, ILLOGICAL, AGITATED, SUSPICIOUS Prior suicide attempts Notes: PT DENIED ANY PREVIOUS SUICIDE ATTEMPTS. Prior hospitalizations Notes: THE PATIENT REPORTS HE WAS RECENTLY HOSPITALIZED AT [facility]. HE BELIEVES HE LEFT 1 WEEK AGO'; PT HAS BEEN HOSPITALIZED MANY TIMES, INCLUDING [facility] 3N ADMISSIONS ON 02/26/17 TO 03/16/17; 04/13/17 TO 04/29/17; AND 05/05/17 TO 05/14/17; 05/18/17 -05/26/17 Treatment Responses Notes: BRIEF STABILIZATIONS AFTER DISCHARGE, POOR MED COMPLIANCE AFTER DISCHARGE History of violence Notes: PT DENIED A HISTORY OF VIOLENCE. Therapist: WILLIAM GUERRERO Medications (name, dosage, route, freq uency) Notes: PER ED REPORT "The patient reports he is taking no current psychiatric medications." PER [facility] REPORT "CP HAS MY MEDS, I'M NOT SURE WHAT MY MEDS ARE. I NEED 3N TO HELP MY BLOOD." Allergies/Reaction Notes: PT HAS NO KNOWN DRUG ALLERGIES. Sleep Notes: REPORTED HE HASN'T SLEPT IN DAYS Appetite Notes: GOOD Medical/Surgical history Notes: PT'S MEDICAL HISTORY INCLUDES CERVICAL DISK DISEASE AND BILATERAL KNEE SURGERIES; PT REPORTED HX OF ASTHMA, DIABETES, HYPERTENSION, OVERWEIGHT/UNDERWEIGHT AND SLEEP PROBLEMS. Substance use history (frequency, intensity, his tory, duration) Notes: PT DENIED USING ANY DRUGS OR DRINKING ALCOHOL. ED UTOX SCREEN RESULTS WERE NEGATIVE FOR ALL SUBSTANCES AND ALCOHOL LEVEL ZERO.PT HAS A HX OF ETOH AND COCAINE USE, BUT NONE REPORTED TODAY. Family composition Notes: PT'S BIOLOGICAL MOTHER AND FATHER ARE AND PT HAS ONE BROTHER. Family psychiatric/substance abuse history Notes: PT COULD NOT SAY IF THERE IS ANY HISTORY OF PSYCHIATRIC OR SUBSTANCE ABUSE ISSUES IN THE FAMILY. 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 PT DENIED ANY HISTORY OF HEAD INJURIES OR CHILDHOOD ABUSE/TRAUMA. Abuse concerns Answers: None Marital status/children Notes: PT HAS NEVER AND DOES NOT HAVE CHILDREN. FOC SAID PT DOES NOT HAVE ANY PROBLEM GETTING A GIRLFRIEND. Living situation Notes: PT WAS LIVING WITH HIS FOC BUT MORE RECENTLY HE HAS BEEN LIVING OUT OF HIS TRUCK. Sexual history/orientation Notes: HETEROSEXUAL, ACTIVE, FOC SAID PT DOES NOT HAVE ANY PROBLEM GETTING A GIRLFRIEND. Peer support/family strengths Notes: PT SAID HE DOESN'T HAVE A SUPPORT SYSTEM OTHER THAN HIS FATHER. PT STATED HE HAS BEEN "ISOLATED FOR A LONG TIME " AND THAT IT HAS BEEN "TOO LONG SINCE I HAVE TALKED TO MY FRIENDS". 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 PER [facility] REPORT 01/31, PER FOC, "WHEN HE IS DOING WELL HE CAN HOLD A JOB. PT SOUGHT HELP WHEN OVERWLEMED. Notes: NONE REPORTED Legal Notes: PT DENIED ANY ARREST HISTORY. Restorationist/Spiritual Notes: PT SAID HE USED TO GO TO [employer] A LOT. Leisure Notes: FOC SAID PT LIKES TO HIKE IN THE [place] AND RUN. Collateral Notes: COLLATERAL INFORMATION OBTAINED FROM [facility] REPORT AND [facility] REPORTS AND DISCHARGE SUMMARY; PER MOST RECENT [facility] ADMIT 3N DISCHARGE SUMMARY : BEHAVIORAL HEALTH DISCHARGE SUMMARY REASON FOR ADMISSION: Patient is a 46-year-old male with history of chronic paranoid schizophrenia. He is admitted from the emergency department only 6 days after having been discharged from the inpatient unit. He has a history of 4 recurrent hospitalizations from 02/26/2017 to the current admission on 05/18/2017. In each case, he was stabilized completely on the inpatient unit, discharged with prescriptions and an outpatient plan, and quickly relapsed to severe disorganization and psychosis, and was brought in from the community after having been found in a debilitated state. In this circumstance, he was found in public unable to communicate and appeared to be disorganized and psychotic prompting them to place him on an M1 hold and bring him back to the ER. In the emergency department, he was placed back on an M1 hold and admitted for further evaluation. Full description of the events preceding admission can be found in his admission history dated 05/19/2017. ADMITTING DIAGNOSES: 1. Schizophrenia, paranoid type, chronic with acute exacerbation. 2. Possible cannabis-use disorder versus substance unknown-use disorder. 3. Homelessness. 4. Chronic illness. 5. Recurrent illness. 6. Recurrent hospitalizations. 7. Lack of support. ADMITTING PHYSICAL EXAMINATION: Performed by Dr. Doron Mejia, revealed left ankle pain and no other acute physical findings. ADMISSION LABORATORY: CBC was normal. Serum chemistries showed no significant abnormalities. Urine drug screen was negative for all substances and alcohol was less than detectable. HOSPITAL COURSE: The patient was admitted to the [facility] inpatient unit on an M1 hold. He presented as extremely disorganized, though was adequately groomed and had gotten his hair cut. He was noted to interact adequately with fellow patients, and seemed to me to essentially pretend to be sicker than he was when I interviewed him or he interacted with other staff. An example is that he was noted on the first day of admission, to be sitting quietly in the day room reading a newspaper until I approached him, and he began to look around the room as if he were confused and acted as if he was unable to speak. I repeatedly asked him to come with me to be interviewed, and he acted as if he did not understand. I told him I would return later, and as I watched him, he quickly returned to his normal countenance and began again reading the newspaper. Later, I observed him speaking normally with other patients. Staff's experience mirrored this on several occasions during his stay. I asked Dr. So to evaluate this also, as he was covering a weekend during the patient's hospitalization, and he agreed that the symptoms seemed exaggerated and directed. This is important, because it is very difficult understand how the patient could stabilize completely and within a course of only several days completely decompensate in the absence of any identifiable substance use. This being said, he remains dependent on the system for most of his support, and efforts were re-doubled in searching for primary supports. In the last several hospitalizations, patient's family was contacted (specifically his father and his brother) and they voiced a desire to help him but were also somewhat ambivalent, stating at one point that he could come live with them and at another point that he could not; this pertained mostly to his father. In this stay, resident care aide was perhaps more insistent with father who then agreed to come to [place] on a [employer] bus, obtain the patient physically and help him either get set up in the community or take him back to the [facility] where he lives. This was eventually arranged, and patient was discharged with his father on the day of discharge. Patient's hospitalization was uncomplicated. We restarted his Zyprexa, which he continued to resist somewhat. He, as in previous hospitalizations, insisted on changing the schedule or dose on a near daily basis until I set a firm limit with him. Unbeknownst to me, he had convinced Dr. Lucero to decrease from 10 to 5, but then on discharge I informed him we would be increasing back to 10 mg as this has been the consistent dose he has had over time. CONDITION ON DISCHARGE: Stable. His affect was euthymic, stable, and appropriate. His thought process was linear and goal directed, and he was voicing no signs or symptoms of overt psychosis. DISCHARGE MEDICATION: Zyprexa 10 mg p.o. q.h.s. DISCHARGE DIAGNOSES: 1. Schizophrenia, paranoid type, chronic with acute exacerbation. 2. Homelessness. 3. Chronic illness. 4. Recurrent illness. 5. Lack of supports. 6. Possible malingering. DISPOSITION: Patient left the hospital with his father. FOLLOWUP: [facility] as scheduled by resident care aide. LEGAL COURSE: Patient was converted to a voluntary status with the expiration of his M1 hold. TLC Evaluation - Mental Status Exam Appearance: Answers: Appropriate Disheveled Eye Contact: Answers: Avoiding Affect: Answers: Appropriate Calm Confused Guarded Suspicious Behavior: Answers: Appropriate Cooperative Guarded Impulsive Manipulative Suspicious Speech: Answers: Relevant Thought Process: Answers: Disorganized Confused Tangential Manic Signs/Symptoms Answers: Distractibility Impulsivity Irritability Depression Answers: Difficulty Concentrating Signs/Symptoms: Diminished Interest Diminished Pleasure Psychomotor Retardation Anxiety Signs/Symptoms Answers: Generalized Anxiety Delusions: Answers: Paranoid Ideation Pt reported to have Answers: No suicidal/self-injuring ideation/behavior? Pt reported to be making Answers: No suicidal/self-injuring threats? Pt reported to have Answers: No aggression/assault ideation/behavior? Pt reported to be making Answers: No aggression/assault threats? Pt exhibits inability to Answers: Yes care for self/grave disability? Ideation/behavior is Answers: Yes chronic? Patient has a specific Answers: No plan? Pt has access to means to Answers: No execute the plan? Ideation involves Answers: No serious/lethal intent? Ideation has Answers: Yes delusional/hallucinatory content? History of Answers: No suicidal/self-injuring ideation, behavior, or threats? History of Answers: No aggressive/assaultive ideation, behavior, or threats? History of serious Answers: No physical harm to self/others while in treatment setting? TLC Evaluation - Suicide/Homicide Risk Suicide Risk Factors: Answers: < 20 or > 40 Years of Age Agitation Global Insomnia Impulsivity Inadequate Social Support Lack of Social Support Lack/Loss of Employment Psychotic Disorder Schizoaffective Disorder Single Unstable Living Situation Homicide/violence risk Answers: Paranoid Ideation factors: Current Suicidal Answers: No Ideation? Current Suicidal Ideation Answers: No in the Past 48 Hours? Current Suicidal Ideation Answers: No in the Past Month? Current Suicidal Answers: No Ideation, Worst Ever? Suicide Internal Answers: Maria Esther with Stress Protective Factors: Suicide External Answers: Positive Therapeutic Protective Factors: Relationships Ranking of patient's Answers: Low suicidal risk: Ranking of patient's Answers: Low homicidal risk: TLC Evaluation - Wrap-up BDI Total Score: 0 BDI Question #2 Score: 0 BDI Question #9 Score: 0 BSS Total Score: 0 AXIS I Diagnosis (include DSM-V and ICD-10 codes), must also be entered in [employer], which is the source of truth. Notes: SCHIZOAFFECTIVE DISORDER, BIPOLAR TYPE 295.70 (F25.0) PT REPORTED HE IS UNABLE TO COMPLETE BDI Evaluation End Date and 02/19/2018 07:15 PM Time (HH:MILADY): Date Signed: 02/19/2018 07:51 PM Electronically Signed By:Adilson Chaudhry
--- NOTE | 2018-02-19 20:12 | ASMTTCLDSP ---
TLC Discharge Disposition Disposition: Answers: Admit Disposition Notes: Notes: In consultation with [facility] ED physician Marvin Banegas MD, and on-call psychiatrist, Vincent So MD, both concurred that pt appeared appear to meet 27-65 criteria requiring psychiatric hospitalization as pt appears to be to gravely disabled due to a mental illness condition. For inpatient [facility] admission, the following psychiatrist agreed to accept patient for admission to [facility] ([facility]): Date and time M1 hold 02/19/2018 02:30 PM vacated (time format is hh:mm): Type of Hold: Answers: M1/72-hour Hold Hold initiated by: Answers: ED Physician Date Signed: 02/19/2018 08:11 PM Electronically Signed By:Adilson Chaudhry
[2018-02-19] MEDS ORDERED: MAGNESIUM HYDROXIDE 30 ML UDCUP PO PRN (21:30)
[2018-02-19] MEDS ORDERED: ACETAMINOPHEN 325 MG TAB PO PRN (21:30)
[2018-02-19] MEDS ORDERED: MAG HYDROX/AL HYDROX/SIMETH 30 ML UDCUP PO PRN (21:30)
[2018-02-19] MEDS ORDERED: NICOTINE POLACRILEX 2 MG GUM B PRN (21:30)
[2018-02-19] MEDS ORDERED: OLANZapine 5 MG TAB PO PRN (21:33)
--- NOTE | 2018-02-20 13:22 | ASMTBHMTP ---
Master Treatment Plan Master Treatment Plan Answers: Mood Instability with for: Psychosis Date: 02/20/2018 Diagnosis on Admission: Schizoaffective Disorder Expected length of stay: 3-5 Days Reason for admission: Notes: 47 year old male, with a history of schizophrenia, paranoid type, and is an open client at [facility]. Per [facility] report "Pt. was recently discharged from a week ago, and is not taking any medications, doen't know what was prescribed, and that has them. Patient's stated presenting problems: Notes: I don't know. Been living in my van for almost a year. Patient's goals for treatment: Notes: To slow down a bit Patient's strengths: Notes: Very detail oriented Identify supports outside of hospital: Notes: Haven't been keeping in contact with my friends Discharge criteria: Notes: Patient will demonstrate more stable mood by discharge Initial disposition plan/considerations: Notes: Get skills for work Master Treatment Plan Required Signatures Psychiatrist signature: Answers: Vincent So MD: RN on-shift signature: Answers: RN: Patient signature: Answers: Patient: Date Signed: 02/20/2018 09:26 AM Electronically Signed By:Martha Hollins
--- NOTE | 2018-02-20 13:52 | BCON ---
[f rep st] BEHAVIORAL HEALTH CONSULTATION INTERNAL MEDICINE CONSULTATION DATE OF CONSULTATION: 02/20/2018 REFERRING PHYSICIAN: Vincent So MD REASON FOR REFERRAL: Medical clearance for inpatient behavioral health stay. HISTORY OF PRESENT ILLNESS: This patient came to the emergency department yesterday reporting that he was very thirsty, he needed water, and it was an emergency. He also reported that his psych medications were at [facility]. He has had a recent hospitalization at [facility]. He has a chronic history of schizoaffective disorder. He periodically decompensates when he does not take his medications. Currently, he reports that he feels muscle aches because he has been rock climbing for several days prior to his presentation. Otherwise, he is without any acute complaints. PAST MEDICAL HISTORY: 1. Schizoaffective disorder. 2. C5-6 cervical spine fusion. 3. Herpes simplex virus. 4. Anxiety. 5. Knee and hand surgeries. MEDICATIONS: He was not taking any medications. SOCIAL HISTORY: He is homeless. He has been a smoker in the past, but is not currently smoking. He has a history of substance abuse, but denies any recent substance abuse. He is living out of his truck. He has worked in the past in [employer]. FAMILY HISTORY: Noncontributory. ALLERGIES: There are no known drug allergies. REVIEW OF SYSTEMS: He denies any head trauma during his rock climbing. He has muscle aches as in the HPI. He reports he has reduced urination because he was dehydrated. He denies nausea, constipation, diarrhea, or vomiting. Otherwise, a 10-point review of systems is negative. PHYSICAL EXAM: VITAL SIGNS: Blood pressure is 127/83. Heart rate is 90. Respiratory rate is 14. Oxygen saturation is 93% on room air. Temperature is 36.8 degrees centigrade. His weight is 81.6 kg for a body mass index of 26.6. GENERAL: Well-nourished, well-developed man who appears his chronologic age, cooperative, and in no acute distress. HEENT: Extraocular movements are intact. Pupils are equal, round, and reactive to light. Mucous membranes are moist. Dentition is in good condition. He has an uncrowded airway, Mallampati class 1. NECK: Supple. HEART: There is regular rate and rhythm with no murmurs, rubs, or gallops. LUNGS: Clear to auscultation bilaterally. ABDOMEN : Benign. EXTREMITIES: There is no cyanosis, clubbing, or edema. NEUROLOGIC : He is alert and oriented to the location, year, and month. He is off by 1 on the date of the month. Cranial nerves 2-12 are grossly intact. There is no focal weakness, and sensation is intact to light touch. LABORATORY STUDIES: Drawn in the emergency department, CBC was entirely within normal limits. Serum chemistry revealed a slightly low carbon dioxide at 17. Otherwise renal function and electrolytes were normal. Toxicology screen in the serum was negative for ethyl alcohol and the urine was negative for any substances of abuse. ASSESSMENT AND RECOMMENDATIONS: 1. Schizoaffective disorder with medication noncompliance. Further evaluation and treatment per Psychiatry and the mental health team. 2. Myalgias, likely due to over exertion with rock climbing. Acetaminophen has been prescribed and that should be adequate. I see no medical contraindications to this patient's continued stay on the inpatient behavioral health unit or to any psychiatric medications or procedures. Thank you very much for including me in the care of this patient, and please do not hesitate to contact me or the hospitalist service should there be a need for further medical evaluation. /[id number]/MODL MTDD
[2018-02-20] MEDS: LORazepam 0.5 MG TAB PO PRN (16:22)
--- NOTE | 2018-02-20 16:38 | BAPA ---
[f rep st] ADMISSION PSYCHIATRIC ASSESSMENT DATE OF SERVICE: 02/20/2018 CHIEF COMPLAINT: "I need water. It is an emergency." HISTORY OF PRESENT ILLNESS: The patient is a 47-year-old man, unmarried, unemployed, homeless, with a history of schizophrenia, open client at [facility]. According to the [facility] eval that was done in the emergency department, patient was recently discharged from [facility] approximately a week ago. He is not taking any medications. He was given prescriptions when he left [facility], but states that he never went to the pharmacy to have them filled. When he came into the emergency room on 02/19/2018, he said that he needed to be admitted to [address] [place] [address] "to help my blood." He also stated that "my biceps are sore." He states that he has not been sleeping. He said that he felt agitated, but in the ED was noted to be tired and somnolent. The [facility] swimmer noted that the patient oftentimes would give "nonsensical answers to questions" or would simply say "no, I do not know." At other times, the [facility] swimmer noted that the patient was very "arturo," oftentimes seeming to be resistant to answering questions or providing full explanations to questions. When this MD met with the patient on the inpatient behavioral services unit on [address] [place] [address], the patient was calm, cooperative, compliant. He showed no signs of agitation. No signs of restlessness, fidgeting. He denied any decreased need for sleep or increase in goal-directed activity. He did not endorse auditory or visual hallucinations. He denied experiencing paranoid delusions. He denied bizarre thoughts and ideas of reference. He slept almost 10 hours last night, so he was not having difficulty sleeping. He ate 100% of meals this morning and attended groups. When MD asked the patient about his recent hospitalization, he could not remember the reasons why he was hospitalized. He also could not remember when it happened or how long he had stayed at [facility]. He could not remember the names of any medications he was given there, but when asked whether or not he had been seeing any providers between the time that he was last seen on [address] [place] [address] which was in May of 2017 and when he was hospitalized at [facility], he could not answer the question appropriately. He kept fumbling over his words and he kept going back to talking about being at , even when the MD attempted to clarify the difference between inpatient and outpatient treatment. The patient did eventually say that he has seen providers at [facility], but then said that he does not like going there and at another time said that he has not been "successful" with his treatment at [facility]. When MD asked whether or not he had been taking medications, the patient said he had been taking medications, but only when he was at the hospital. 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 Later, when the MD and the primary care nurse practitioner talked to the patient, he states that the reason he does not want to go back to [facility] is because he says "I have a lot of unpaid bills. They are trying to collect from me." So, the patient's presentation varied significantly between periods of time where he seemed not to be tracking and seemed to be disengaged from the conversation and had word finding difficulty and seemed to stumble over his words to other times when he seemed very linear, goal directed, very coherent, on topic, and provided explanations such as the fact that he has lots of unpaid bills and that he was tired of being harassed to pay his bills and that was why he was avoiding seeing providers at [facility]. That is an entirely more rational and logical explanation than other attempts at information collection from the patient and it raises the question about whether or not the patient's nonsensical, disorganized speech is feigned or whether or not it is a true symptom of his mental illness. MD will address this more in the next section of patient's past psychiatric history. PAST PSYCHIATRIC HISTORY: This patient is well known to the staff on . He had 4 psychiatric admissions in 2017, but none so far in 2018 until now. Previous admissions include from 05/18 to 05/26/2017, from 05/05 to 05/14/2017, from 04/13 to 04/29/2017, and from 02/26 to 03/16/2017. Of note, the patient was seen by Dr. Castaneda in May of 2017 and there were concerns about possible malingering at that time. Dr. Castaneda noted in his discharge summary dated 05/26/2017 in the section on course of treatment in the hospital. Dr. Castaneda noted "the patient presented as extremely disorganized but was adequately groomed, had gotten his hair cut. He was noted to interact adequately with fellow patients and seemed to me to essentially pretend to be sicker than he was when I interviewed him or he interacted with other staff. An example is that he was noted on the first day of admission to be sitting quietly in the dayroom reading a newspaper until I approached him and he began to look around the room as if he were confused and acted as if he was unable to speak. I repeatedly asked him to come with me to be interviewed and he acted as if he did not understand. I told him I would return later, and as I watched him, he quickly returned to his normal countenance and began again reading the newspaper. Later, I observed him speaking normally with other patients. Staff' s experience mirrored this on several occasions during his stay. I asked Dr. So to evaluate this also as he was covering a weekend during the patient's hospitalization and he agreed that the symptoms seemed exaggerated and directed. " Dr. Castaneda continues to note "this is important because it is very difficult to understand how the patient could stabilize completely and within a course of only several days completely decompensate in the absence of any identifiable substance use. This being said, he remains dependent on the system for most of his support and efforts were re-doubled in searching for primary supports." During his most recent hospital stay at [address] [place] [address], the patient was restarted on Zyprexa which has been a medication that he has benefitted from and taken during all of his psychiatric admissions in 2017. He was on Zyprexa 10 mg p.o. q.h.s. and this has been a consistent dose of medications for him during all of his previous psychiatric admissions to [facility] and he has been given a prescription for this medication at each of his discharges. Unfortunately, the patient does not follow up with appointments that are made for him with [facility]. This observation by Dr. Castaneda and myself during the patient's hospitalization in May, that his symptoms seem to be exaggerated and directed and that he seems to feign more severe symptoms than can be accounted for by objective observation. Seems to be a consistent pattern for the patient and raises the question about primary and secondary gain from being in the hospital. In looking at previous medical records, it looks like the patient was seen in the [facility] ED on 01/30/2018 with a very similar presentation. He was picked up by EMS in the parking lot at [facility] on 01/30/2017. He arrived via EMS at [facility] ED for altered mental status. 911 was contacted by the patient due to mental confusion. The patient was living in his van in the [facility] parking lot. According to EMS, he was speaking "nonsensically, clearly gravely disabled, and was brought to the ED." There was no report of trauma. No report of drug use. UDS was negative. The patient was not able to provide any useful information. He could not answer questions appropriately. He seemed to be in a confused state, and EMS and ED staff were not able to get clear answers to questions from him. This presentation is very similar to the way the patient seemed to appear when directly confronted by a staff member on [place] or by Dr. Castaneda or myself, but this disorganization, confusion, and altered mental status quickly dissipated as soon as he was not being directly observed by an inpatient staff member. When he was interacting with peers on the unit, he would go back to normal behavior which was engaged, which was coherent in which he could make observations and he could express himself fluently and spontaneously with no signs of impaired cognitive ability or altered mental status, when he could read the newspaper, and he otherwise seemed to be functioning normally. So, this state of confusion and altered mental status seem to be able to be turned on and off at the patient's direction. This MD has serious concerns that the patient is getting primary and possibly secondary gain out of his current hospitalization. The CCMartha, who saw the patient this morning, reports patient said he has a court hearing on 02/21/2018, for a trespassing case in [facility]. He refused to provide any details or information about the specific violation or legal charges, but it does seem that avoiding court is one very concrete gain that he gets by being in the hospital this time. ALLERGIES: The patient has no known drug allergies. CURRENT MEDICATIONS: The patient is not currently taking any medication. Refuses to say what medications he was on when he was at [facility]. His most recent hospitalization at [address] [place] [address], he was on Zyprexa 10 mg p.o. q.h.s. LAB DATA: Was done in the [facility] ED. His white cell count was 7.45, hemoglobin 15.7, hematocrit 43.5, platelet count 243. Sodium 137, potassium 4.4 , chloride 106, BUN 15, creatinine 0.7, glucose 81, calcium 9.6. Urine drug screen was negative for all drugs of abuse. Ethyl alcohol was less than 10. PAST MEDICAL HISTORY: The patient has a prior medical history of cervical disk disease, bilateral knee surgeries. Also has a history of asthma, diabetes, hypertension, and sleep problems. Not currently taking any medications. SOCIAL HISTORY: The patient is homeless, transient. At various times, he has been living in a truck. Most recently, in January, he was picked up living in a van in the [facility] parking lot. During his previous admissions in April and May of 2017, primary care nurse practitioner reached out to the patient's biological relatives. He has a brother and a dad who live nearby. He was supposed to go and stay with the dad out near [place] at some point, but never made it out there. The patient has never been . He does not have children. Still states that he is living out of a truck. Does not have a support system other than his father. 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 There is no record of when he most recently worked, but he enjoys participating in outdoor activities in open space here in [place]. FAMILY HISTORY: The patient refused to say whether or not there is any psychiatric history or substance use issues in his family. SUBSTANCE USE HISTORY: The patient's own substance use: He has always denied the use of illicits or mood-altering substances and recreational drugs. His urine drug screen the last [address] [place] [address] have all been negative. His urine drug screen that was done at [facility] on 02/01/2018 was also negative for all illicit substances and recreational drugs. LEGAL HISTORY: The patient initially denied that he has any pending legal issues, but when he was asked by the primary care nurse practitioner this morning, he indicated that he has a court hearing on 02/21/2018, for a trespassing charge, but would not provide any specific details. MENTAL STATUS EXAMINATION: This is a tall, thin, appropriately groomed, man wearing street clothes, jeans and a T-shirt. He is alert and oriented x4. His affect is euthymic. His speech rate and volume are both normal. His demeanor is appropriate. There is no evidence of restlessness, fidgeting, or agitation. He makes appropriate eye contact. At times, he chooses not to answer questions. At other times, he seems to fumble around with his speech, look up at the ceiling, act distracted, but other times, he provides very linear, coherent answers to questions that are spontaneous and fluent. So, these 2 states of mind and mental status seem to be contradictory and they can change from one second to the next. His intellectual function appears to be average based upon his vocabulary, fund of knowledge, educational history. He denies feeling sad, helpless, hopeless, worthless, and anxious. He denies any symptoms of psychosis. Currently, he denies auditory and visual hallucinations, paranoia, ideas of reference, or bizarre thoughts. There is no evidence of misael. He has no pressured speech or racing thoughts. He does not have elevated or elated mood or grandiose delusions. He denies any thoughts, plans or intents to hurt himself or anyone else. His thought process is at times linear and goal directed. At other times, it seems to be disorganized. His insight and judgment both appear to be impaired. IMPRESSION: 1. Schizophrenia, paranoid type by history. 2. Malingering. 3. Homelessness, chronic mental illness, lack of social supports, chronic noncompliance with treatment. PLAN: 1. Admit patient to the inpatient behavioral health service unit on on an M-1 hold. 2. Monitor closely for safety. The patient is currently not exhibiting any signs of psychosis or unsafe behavior. He is acting appropriately. He denies any thoughts, plans or intents to hurt himself or anyone else. 3. Continue to monitor and observe the patient. He is not exhibiting any acute symptoms of psychosis or misael at this time. Will start him on Zyprexa 10 mg p.o. q.h.s. which is the medication that he has taken during all of his previous psych hospitalizations on [address] [place] [address] and seemed to benefit from, tolerated the medications without any side effects or adverse effects. 4. Will refer the patient back to [facility]. He has not been compliant with getting outpatient care. He has never gone to any of his followup appointments when discharged from the hospital and has stopped taking medications as soon as he is discharged; that includes his 4 psychiatric hospitalizations on [address] [place] [address] in 2017 and most recently when he left [facility] He did not follow up for treatment and did not get his medications filled at the pharmacy. 5. Estimated length of stay is 2 to 3 days. The patient usually stabilizes fairly rapidly. This could be because many of his acute sxs are feigned or at least have been exaggerated. If the patient is willing to follow up with [facility], he certainly has access to their services and could continue on medications and get ongoing treatment for his mental illness and he will be assisted in doing that with his primary care nurse practitioner. The care coordinators worked very diligently during his last several psychiatric admissions to try to connect the patient with more stable housing and also get him connected with services in a location where he would have some supervision and monitoring from a family member. He had originally agreed to move out to where his father lives and they were going to get a double-wide trailer and live together. Father had agreed to help monitor and supervise medications and treatment compliance for the patient, but patient reneged on that plan shortly after he discharged the last 2 times. Nonetheless, the care coordinators will attempt to establish continuity of care and get the patient connected with his primary social support system to the best of our abilities. /[id number]/MODL MTDD
--- NOTE | 2018-02-20 19:17 | PDMN ---
Medical Necessity Medical necessity: Pt meets IP criteria per & KIRSTIN B-[id number]; est los >2 mn for eval/tx of paranoid schizophrenia; pt on M1 hold; admit for safety, stabilization & med management; hx homelessness; per H&P & order 02/20/18
[2018-02-20] MEDS: OLANZapine DISINTEGR 10 MG TAB PO SCH ×2 (21:01→21:29)
--- NOTE | 2018-02-21 12:28 | ASMTBHDC ---
Notes Note: Notes: CC speaks to client briefly during check-in. Client presents as un-clean, more focused and lucid than previous admittions; however, nonsensical at times with a restricted affect. CC will try to set client up with [facility] again for when he is discharging. Client is appropriate on the unit. Date Signed: 02/21/2018 12:27 PM Electronically Signed By:Alex Page
--- NOTE | 2018-02-21 13:08 | ASMTCMCOM ---
CM Note CM Note Notes: Pt.'s court date for trespassing has been moved to Wednesday03/01/2018 at 8:30am with [facility] [address]. Date Signed: 02/21/2018 01:07 PM Electronically Signed By:Martha Hollins
--- NOTE | 2018-02-21 13:22 | SOAPPROG ---
SOSUHA Progress Note Assessment/Plan: Assessment: Plan: 02/21/18 13:35 Schizophrenia: Looks better than I usually encounter him in the hospital. He is compliant with treatments. May have some motivation for secondary gain - food, snf, avoiding legal processes. Will [facility]CM, work with patient to establish a reasonably and safe d/c plan. Subjective: Pt seen, discussed with staff, chart reviewed. He is known to me from previous admissions. He goes through the "medical emergency" surrounding his admission. States he "would have any minute" if he hadn't gone to the ED. He also states, "I just don't get why they make it psychiatric when I came in for a real medical emergency." I emphasized that "medical" and psychiatric issues can co-occur and that he always needs to be actively managing both. He remains rigid that it was unnecessary to admit him for psychiatric treatment. He then states he is not ready to go yet, "because I need to get my body and head right. " He is compliant with meds and therapies. Objective: Vital Signs Temp Pulse Resp BP Pulse Ox 36.8 C 60 14 127/82 H 96 02/19/18 21:12 02/21/18 06:00 02/21/18 06:00 02/21/18 06:00 02/21/18 06:00 MSE: Calm, though guarded. Adequately groomed, appears healthy, robust. Affect is constricted, actually appearing angry until he recognized me. States he didn't know me with a kenyon (although I've always had one when I worked with him.) Speech is voluminous, mildly pressured. Affect is constricted, stable. Mood is "pretty good." TP is tangential talking about numerous subjects simultaneously ranging from his health to his living circumstance to skiing 80 days at [employer] last year. TC reveals some odd statements, poor reality testing. A&Ox4, sensorium is clear. Denies SI/HI/. - Time Spent With Patient Time Spent With Patient: 25" ICD10 Worksheet Patient Problems: Problems Problem Status Onset Schizophrenia, disorganized Chronic Acute psychosis Acute
--- NOTE | 2018-02-21 14:30 | ASMTBHDC ---
Notes Note: Notes: CC re faxed request to [facility] for follow up appt time and date for later this week or next. Date Signed: 02/21/2018 02:29 PM Electronically Signed By:Alex Page
[2018-02-21] MEDS: LORazepam 0.5 MG TAB PO PRN (16:50)
[2018-02-21] MEDS: OLANZapine DISINTEGR 10 MG TAB PO SCH (20:54)
--- NOTE | 2018-02-22 12:09 | SOAPPROG ---
SOAP Progress Note Assessment/Plan: Assessment: Plan: 02/21/18 13:35 Schizophrenia: Looks better than I usually encounter him in the hospital. He is compliant with treatments. May have some motivation for secondary gain - food, group home, avoiding legal processes. Will [facility], work with patient to establish a reasonably and safe d/c plan. 02/22/18 12:09 Schizophrenia: Some improvement though remains disorganized. CCM. Subjective: Pt seen, discussed with staff. Quite talkative, even pressured with me today. Asked to review his labs in detail. He is not accepting that there are no significant abnormalities. He insists that he is sick because "I'm a freak of nature." He doesn't believe the standard ranges and states he is "not right. Not even close." Talks a lot about his job at the [employer] in [employer]. States he wants to go to [place] and visit his mother. Compliant with meds. Objective: Vital Signs Temp Pulse Resp BP Pulse Ox 36.5 C 73 14 116/75 96 02/22/18 06:00 02/22/18 06:00 02/22/18 06:00 02/22/18 06:00 02/22/18 06:00 MSE: Moderately agitated, engaging, coop. Affect is constricted, irritable at times. Mood is "not too good." TP is tangential. TC reveals perseveration on stories about his life, unable to terminate even with verbal redirection. Some physical/somatic preoccupation also. - Time Spent With Patient Time Spent With Patient: 25" ICD10 Worksheet Patient Problems: Problems Problem Status Onset Schizophrenia, disorganized Chronic Acute psychosis Acute
--- NOTE | 2018-02-22 14:00 | ASMTBHDC ---
Notes Note: Notes: CC speaks to client briefly during check-in. Client is improving and presents as becoming more stable and goal oriented. Date Signed: 02/22/2018 02:00 PM Electronically Signed By:Alex Page
[2018-02-22] MEDS: LORazepam 0.5 MG TAB PO PRN (18:04)
[2018-02-22] MEDS: OLANZapine DISINTEGR 10 MG TAB PO SCH (18:51)
--- NOTE | 2018-02-23 09:22 | ASMTBHDC ---
Notes Note: Notes: CC speaks to client during check-in. Client denies any feelings of anxiety, depression, AVH and/or S/I-H/I. Additionally, client suggests having future goals "working with a friend(s) in [place]; thus, client presents as goal oriented, clearer than previous days, affect appropriate to situation. Moreover, all necessary discharge follow up care/plans are placed in client's discharge checklist and listed below. Follow up with: [facility] [address] [place] [address] Intake Appt: WednesdayFebruary 28 (02/28/18) at 8:30am [facility] [address] [place], [place] [id number] Must coordinate entry prior to discharge [facility] [address] [place] [address] Must arrive prior to 3:30pm Date Signed: 02/23/2018 09:22 AM Electronically Signed By:Alex Page
--- NOTE | 2018-02-23 17:28 | SOAPPROG ---
SOAP Progress Note Assessment/Plan: Assessment: Plan: 02/21/18 13:35 Schizophrenia: Looks better than I usually encounter him in the hospital. He is compliant with treatments. May have some motivation for secondary gain - food, prison, avoiding legal processes. Will [facility], work with patient to establish a reasonably and safe d/c plan. 02/22/18 12:09 Schizophrenia: Some improvement though remains disorganized. [facility]. 02/23/18 17:28 Schizophrenia: Improved overall, though refusing meds, groups. He appears to be at baseline and I do not see criteria for involuntary meds. Will finalize d/ c plan and d/c tomorrow. Subjective: Pt seen, discussed with staff. Remains rather intense, irritable at times. Has refused Zyprexa for the past four nights. States he doesn't want to take it because it makes him fat. Refuses any other antipsychotic medication. I discussed the need for him to participate in some form of treatment if he is to remain in the hospital. He repeats that he doesn't want to stay in his van any more. Continues to refuse most groups and is hostile if staff attempts to redirect him. Objective: Vital Signs Temp Pulse Resp BP Pulse Ox 36.5 C 70 14 142/75 H 96 02/23/18 06:00 02/23/18 06:00 02/23/18 06:00 02/23/18 06:00 02/23/18 06:00 MSE: Abrupt, irritable, not aggressive or hostile. Affect is o/w constricted, stable. Mood is "OK." TP generally linear ,though wanders at times. TC reveals continued odd and paranoid thoughts. Denies SI/HI/. - Time Spent With Patient Time Spent With Patient: 15" ICD10 Worksheet Patient Problems: Problems Problem Status Onset Schizophrenia, disorganized Chronic Acute psychosis Acute
[2018-02-23] MEDS: OLANZapine DISINTEGR 10 MG TAB PO SCH (20:53)
[2018-02-23] MEDS: LORazepam 0.5 MG TAB PO PRN (20:53)
[2018-02-24 06:41] VITALS: BP 111/75
--- NOTE | 2018-02-24 10:28 | ASMTBHDC ---
Notes Note: Notes: CC spoke to Provider, who noted that client will be discharging today. CC will provide a bus ticket and additional resources listed below. Client presents as being at baseline, etc.* Follow up with: [facility] [address] Intake Appt: WednesdayFebruary 28 (02/28/18) at 8:30am [facility] [address] [place], [place] [phone] Must coordinate entry prior to discharge [facility] [address] [place], [place] [phone] Must arrive prior to 3:30pm DBSA Chapters/Support Groups Please note: DBSA chapters are volunteer-run and many of the numbers listed are personal phone numbers. Due to this, please be considerate of the time of day you are calling. Also, please remember these are not crisis lines. If you are in need of emergency assistance, please call 911 or [phone]-TALK. When contacting chapters via email, please put 'DBSA' in the subject line. [facility] DBSA [facility] Contact 1: Information Line Email: [email or web address] Website: [email or web address] [facility] Contact 1: Information Line Email: [email or web address] Website: [email or web address] Date Signed: 02/24/2018 10:27 AM Electronically Signed By:Alex Page
--- NOTE | 2018-02-24 17:19 | BDS ---
[f rep st] [facility] DISCHARGE SUMMARY REASON FOR ADMISSION: Patient is a 47-year-old male with schizophrenia who is well known t o us from previous psychiatric admissions. He presented to the emergency department of his own accor d, stating that he was dehydrated and that he needed to be given IVs or he would . He was rehydra shelbi and then placed on an M1 hold due to apparent grave disability and admitted for further evaluatio n. A full description of the events preceding admission can be found in his admission history dated 02/20/2018. ADMITTING DIAGNOSES: Per Dr. So, schizophrenia, paranoid type; malingering; homeless; chronic ment al illness; lack of social supports; chronic noncompliance. PHYSICAL EXAMINATION: Admission physical examination performed by Dr. Doron Mejia revealed no ac yareli physical findings. ADMISSION LABORATORY: CBC is normal. Serum chemistries are normal. Urine drug screen is negative f or all substances. Alcohol is less than detectable. HOSPITAL COURSE: The patient was admitted to the [facility] services inpatient unit on an M1 ho ld. He was well groomed and healthy appearing, much better than on most previous admissions. He als o was interactive and appropriate and did not appear to be acutely psychotic. He was able to discuss with me numerous aspects of his life, stating that he was sick of living in his van and needed to ge t a job. He stated he had an in with a person he met, though this story was rather convoluted. 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 He then also stated that he wanted to get some permanent housing and had been looking on [employer] to rent a room. He refused all medications during his stay. He stated on several days in a row that he would take the Zyprexa and then ultimately would refuse at bedtime. Finally, I porsha d him that if he was not participating in treatment, though, he had no further need for hospitalizati on. He was agreeable to this. He was displaying no overt psychotic symptoms, was calm and cooperati ve. Was eating and sleeping well, was well groomed and was attending to his ADLs. I discussed with him at length on several occasions the fact that he needed to manage his schizophrenic illness with a ntipsychotic medications, which he adamantly refused. He clearly did not meet criteria for short-ter m certification or involuntary medications and was converted to a voluntary status prior to discharge . When he continued to refuse all interventions, he was discharged to his own recognizance, and he w as accepting of this. CONDITION ON DISCHARGE: Stable. He was displaying no overt psychotic symptoms, was able to adequate ly provide for all of his basic needs and communicate with others. He was displaying no aggression. He was voicing no thoughts of suicide, homicide, or violence. He was refusing all medications. DISCHARGE MEDICATIONS: None. DISCHARGE DIAGNOSES: Schizophrenia, paranoid type, chronic, with acute exacerbation; malingering; ho melessness. DISPOSITION: Patient left the hospital of his own accord to return to the [facility] to retrie ve his van. FOLLOWUP: Followup is with [facility] to seek some form of "support group" that he wanted. The emergency care attendant provided him with information regarding intake, and he was given claudio saucedo instructions for dates and times of followup appointments and is also given written resources fo community support groups. Attitude at discharge was positive. LEGAL COURSE: The patient was converted to voluntary status at the expiration of his M1 hold. The patient did not have advance directives on file, but was a full code throughout his stay. There are no pending labs or studies at time of discharge. /[id number]/MODL
--- NOTE | 2018-02-25 14:17 | ASDISCHSUM ---
Discharge Information Plan Status:Outpatient Psych Referrals Medically Cleared to Leave:02/24/2018 Discharge Date:02/24/2018 03:30 PM CM D/C Disposition:OP ADT D/C Disposition:Home, Routine, Self-Care Projected Discharge Date:02/24/2018 11:00 AM Transportation at D/C:Self Discharge Delay Reason: Follow-Up Date:02/28/2018 Discharge Slot: Final Diagnosis: Placement Information Referral Type:Psychiatric Hospital or Unit Referral ID:[id number] Provider Name: Address 1: Phone Number: Address 2: Fax Number: City: Selection Factors: State: Referral Type:Outpatient Center/Clinic Referral ID:[id number] Provider Name:[facility] Address 1:[address] [place] [address] Phone Number: Address 2: Fax Number: [facility] Selection Factors: State:[place] Patient Contact Information Contact Name:DMITRIDEYA Relationship:Father Address: Work Phone: City:[place] Alternate Phone: [facility]/Zip Code:[place] Email: Financial Information Financial Class:Medicare Primary Plan Desc:MEDICARE PSYCH INPATIENT Primary Plan Number:[id number] [place] [place] Secondary Plan Number:[id number] Assessment Information TLC Progress Note Notes Note: Notes: PT [facility]IS open client; [facility]IS notified and sending chemist food Date Signed: 02/19/2018 01:01 PM Electronically Signed By:Adilson Chaudhry TLC Evaluation TLC Evaluation - Basic Information Evaluation Start Date and 02/19/2018 06:00 PM Time Hospital Status Answers: M1 Hold 72-hr M1 Hold Start Date 02/19/2018 03:00 PM and Time Patient statement Notes: "I NEED WATER, IT IS IN EMERGENCY" Narrative Notes: PT IS A 47 Y/O CACASIAN, SINGLE, UNEMPLOYED, HOMELESS MALE WITH A HISTORY OF SCHIZOPHRENIA, PARANOID TYPE, AND IS AN OPEN CLIENT AT [facility]. PER CIS REPORT "PT WAS RECENLY DISCHARGED FROM A WEEK AGO, AND IS NOT TAKING ANY MEDS, DOESN'T KNOW WHAT WAS RX'D, AND THAT HAS THEM. PT REPORTED HE FEELS WORSE THEN HE DID WHEN HE ENTERED . PT SAYS HE HAS NOT SLEPT IN DAYS, BUT DOES NOT KNOW HOW LONG. PT SAYS HE CAN'T SLEEP DUE TO "CLIMBING" PT STATED "I NEED 3N TO HELP MY BLOOD" PT STATED DATE IS WEDNESDAY THE 1988 DURING THE EVALUATION. 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 PT INITIALLY DENIED FEELING PARANOID , BUT THEN REPROTED FEELING LIKE PEOPLE ARE WATCHING HIM. PT REPEATED I DON'T FEEL RIGHT, MY BICEPS ARE SORE" PT DENEID AH/VH/SI/HI. [facility] ED ADMISTERED 5MG ZYPREXA TO HELP CT FROM BEING SO AGITATED. PT HAS BEEN STRUGGLING WITH SX RELATED TO SCHIOAFFECTIVE DO INCLUDING PARANOIA, ANXIETY, DISORGANIZED, AND TANGETNAL THOUGHTS, HE HAS LITTLE INSIGHT ABOUT HIS CONDITION, AND DOES NOT REMAIN MED COMPLAINT WHEN OUT OF THE HOSPITAL. HE REPORTED NOT SLEEPING FOR UNKNONW NUMBER OF DAYS AND PRESENTED TODAY VERY SLEEPY, YET AGITATED, AND ANXIOUS. PT RESPONDED TO EVALUATION QUESTION WITH NON-SENSICAL ANSWERS, OR SIMPLY SAYS "NO, I DON'T KNOW" WHEN PT IS AT BASELINE HE IS ABLE TO WORK, AND TAKE CARE OF ADLS. PT CURRENTLY DECOMPENSATED, OFF BASELINE AND REQUIRS A HIGHER LEVEL OF CARE IN ORDER TO BECOME MED COMPLIANT AND RESTABILIZE. PER ED REPORT "The patient is a homeless schizophrenic who presents to the ED with confusion, mild agitation requesting water and reporting anxiety. The patient reports he was recently hospitalized at [facility]. He believes he left 1 week ago. The patient reports he is taking no current psychiatric medications. The patient denies any history of fall or trauma. The patient denies any fever. He denies dysuria. He denies additional acute complaints." Diagnosis History Notes: PT HAS A DIAGNOSIS OF SCHIZOAFFECTIVE DISORDER, BIPOLAR TYPE. RESPONDENT IS CONFUSED, ILLOGICAL, AGITATED, SUSPICIOUS Prior suicide attempts Notes: PT DENIED ANY PREVIOUS SUICIDE ATTEMPTS. Prior hospitalizations Notes: THE PATIENT REPORTS HE WAS RECENTLY HOSPITALIZED AT [facility]. HE BELIEVES HE LEFT 1 WEEK AGO'; PT HAS BEEN HOSPITALIZED MANY TIMES, INCLUDING [facility] 3N ADMISSIONS ON 02/26/17 TO 03/16/17; 04/13/17 TO 04/29/17; AND 05/05/17 TO 05/14/17; 05/18/17 -05/26/17 Treatment Responses Notes: BRIEF STABILIZATIONS AFTER DISCHARGE, POOR MED COMPLIANCE AFTER DISCHARGE History of violence Notes: PT DENIED A HISTORY OF VIOLENCE. Therapist: WILLIAM GUERRERO Medications (name, dosage, route, freq uency) Notes: PER ED REPORT "The patient reports he is taking no current psychiatric medications." PER CIS REPORT "CP HAS MY MEDS, I'M NOT SURE WHAT MY MEDS ARE. I NEED 3N TO HELP MY BLOOD." Allergies/Reaction Notes: PT HAS NO KNOWN DRUG ALLERGIES. Sleep Notes: REPORTED HE HASN'T SLEPT IN DAYS Appetite Notes: GOOD Medical/Surgical history Notes: PT'S MEDICAL HISTORY INCLUDES CERVICAL DISK DISEASE AND BILATERAL KNEE SURGERIES; PT REPORTED HX OF ASTHMA, DIABETES, HYPERTENSION, OVERWEIGHT/UNDERWEIGHT AND SLEEP PROBLEMS. Substance use history (frequency, intensity, his tory, duration) Notes: PT DENIED USING ANY DRUGS OR DRINKING ALCOHOL. ED UTOX SCREEN RESULTS WERE NEGATIVE FOR ALL SUBSTANCES AND ALCOHOL LEVEL ZERO.PT HAS A HX OF ETOH AND COCAINE USE, BUT NONE REPORTED TODAY. Family composition Notes: PT'S BIOLOGICAL MOTHER AND FATHER ARE AND PT HAS ONE BROTHER. Family psychiatric/substance abuse history Notes: PT COULD NOT SAY IF THERE IS ANY HISTORY OF PSYCHIATRIC OR SUBSTANCE ABUSE ISSUES IN THE FAMILY. 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 PT DENIED ANY HISTORY OF HEAD INJURIES OR CHILDHOOD ABUSE/TRAUMA. Abuse concerns Answers: None Marital status/children Notes: PT HAS NEVER AND DOES NOT HAVE CHILDREN. FOC SAID PT DOES NOT HAVE ANY PROBLEM GETTING A GIRLFRIEND. Living situation Notes: PT WAS LIVING WITH HIS FOC BUT MORE RECENTLY HE HAS BEEN LIVING OUT OF HIS TRUCK. Sexual history/orientation Notes: HETEROSEXUAL, ACTIVE, FOC SAID PT DOES NOT HAVE ANY PROBLEM GETTING A GIRLFRIEND. Peer support/family strengths Notes: PT SAID HE DOESN'T HAVE A SUPPORT SYSTEM OTHER THAN HIS FATHER. PT STATED HE HAS BEEN "ISOLATED FOR A LONG TIME " AND THAT IT HAS BEEN "TOO LONG SINCE I HAVE TALKED TO MY FRIENDS". 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 PER CIS REPORT 01/31, PER FOC, "WHEN HE IS DOING WELL HE CAN HOLD A JOB. PT SOUGHT HELP WHEN OVERWLEMED. Notes: NONE REPORTED Legal Notes: PT DENIED ANY ARREST HISTORY. Anabaptist/Spiritual Notes: PT SAID HE USED TO GO TO [employer] A LOT. Leisure Notes: FOC SAID PT LIKES TO [place]KE IN THE [place] AND RUN. Collateral Notes: COLLATERAL INFORMATION OBTAINED FROM [facility] REPORT AND [facility] REPORTS AND DISCHARGE SUMMARY; PER MOST RECENT [facility] ADMIT 3N DISCHARGE SUMMARY : BEHAVIORAL HEALTH DISCHARGE SUMMARY REASON FOR ADMISSION: Patient is a 46-year-old male with history of chronic paranoid schizophrenia. He is admitted from the emergency department only 6 days after having been discharged from the inpatient unit. He has a history of 4 recurrent hospitalizations from 02/26/2017 to the current admission on 05/18/2017. In each case, he was stabilized completely on the inpatient unit, discharged with prescriptions and an outpatient plan, and quickly relapsed to severe disorganization and psychosis, and was brought in from the community after having been found in a debilitated state. In this circumstance, he was found in public unable to communicate and appeared to be disorganized and psychotic prompting them to place him on an M1 hold and bring him back to the ER. In the emergency department, he was placed back on an M1 hold and admitted for further evaluation. Full description of the events preceding admission can be found in his admission history dated 05/19/2017. ADMITTING DIAGNOSES: 1. Schizophrenia, paranoid type, chronic with acute exacerbation. 2. Possible cannabis-use disorder versus substance unknown-use disorder. 3. Homelessness. 4. Chronic illness. 5. Recurrent illness. 6. Recurrent hospitalizations. 7. Lack of support. ADMITTING PHYSICAL EXAMINATION: Performed by Dr. Doron Mejia, revealed left ankle pain and no other acute physical findings. ADMISSION LABORATORY: CBC was normal. Serum chemistries showed no significant abnormalities. Urine drug screen was negative for all substances and alcohol was less than detectable. HOSPITAL COURSE: The patient was admitted to the rust inpatient unit on an M1 hold. He presented as extremely disorganized, though was adequately groomed and had gotten his hair cut. He was noted to interact adequately with fellow patients, and seemed to me to essentially pretend to be sicker than he was when I interviewed him or he interacted with other staff. An example is that he was noted on the first day of admission, to be sitting quietly in the day room reading a newspaper until I approached him, and he began to look around the room as if he were confused and acted as if he was unable to speak. I repeatedly asked him to come with me to be interviewed, and he acted as if he did not understand. I told him I would return later, and as I watched him, he quickly returned to his normal countenance and began again reading the newspaper. Later, I observed him speaking normally with other patients. Staff's experience mirrored this on several occasions during his stay. I asked Dr. So to evaluate this also, as he was covering a weekend during the patient's hospitalization, and he agreed that the symptoms seemed exaggerated and directed. This is important, because it is very difficult understand how the patient could stabilize completely and within a course of only several days completely decompensate in the absence of any identifiable substance use. This being said, he remains dependent on the system for most of his support, and efforts were re-doubled in searching for primary supports. In the last several hospitalizations, patient's family was contacted (specifically his father and his brother) and they voiced a desire to help him but were also somewhat ambivalent, stating at one point that he could come live with them and at another point that he could not; this pertained mostly to his father. In this stay, customer care manager was perhaps more insistent with father who then agreed to come to [place] on a [employer] bus, obtain the patient physically and help him either get set up in the community or take him back to the [place] area where he lives. This was eventually arranged, and patient was discharged with his father on the day of discharge. Patient's hospitalization was uncomplicated. We restarted his Zyprexa, which he continued to resist somewhat. He, as in previous hospitalizations, insisted on changing the schedule or dose on a near daily basis until I set a firm limit with him. Unbeknownst to me, he had convinced Dr. Lucero to decrease from 10 to 5, but then on discharge I informed him we would be increasing back to 10 mg as this has been the consistent dose he has had over time. CONDITION ON DISCHARGE: Stable. His affect was euthymic, stable, and appropriate. His thought process was linear and goal directed, and he was voicing no signs or symptoms of overt psychosis. DISCHARGE MEDICATION: Zyprexa 10 mg p.o. q.h.s. DISCHARGE DIAGNOSES: 1. Schizophrenia, paranoid type, chronic with acute exacerbation. 2. Homelessness. 3. Chronic illness. 4. Recurrent illness. 5. Lack of supports. 6. Possible malingering. DISPOSITION: Patient left the hospital with his father. FOLLOWUP: [facility] as scheduled by customer care manager. LEGAL COURSE: Patient was converted to a voluntary status with the expiration of his M1 hold. TLC Evaluation - Mental Status Exam Appearance: Answers: Appropriate Disheveled Eye Contact: Answers: Avoiding Affect: Answers: Appropriate Calm Confused Guarded Suspicious Behavior: Answers: Appropriate Cooperative Guarded Impulsive Manipulative Suspicious Speech: Answers: Relevant Thought Process: Answers: Disorganized Confused Tangential Manic Signs/Symptoms Answers: Distractibility Impulsivity Irritability Depression Answers: Difficulty Concentrating Signs/Symptoms: Diminished Interest Diminished Pleasure Psychomotor Retardation Anxiety Signs/Symptoms Answers: Generalized Anxiety Delusions: Answers: Paranoid Ideation Pt reported to have Answers: No suicidal/self-injuring ideation/behavior? Pt reported to be making Answers: No suicidal/self-injuring threats? Pt reported to have Answers: No aggression/assault ideation/behavior? Pt reported to be making Answers: No aggression/assault threats? Pt exhibits inability to Answers: Yes care for self/grave disability? Ideation/behavior is Answers: Yes chronic? Patient has a specific Answers: No plan? Pt has access to means to Answers: No execute the plan? Ideation involves Answers: No serious/lethal intent? Ideation has Answers: Yes delusional/hallucinatory content? History of Answers: No suicidal/self-injuring ideation, behavior, or threats? History of Answers: No aggressive/assaultive ideation, behavior, or threats? History of serious Answers: No physical harm to self/others while in treatment setting? TLC Evaluation - Suicide/Homicide Risk Suicide Risk Factors: Answers: < 20 or > 40 Years of Age Agitation Global Insomnia Impulsivity Inadequate Social Support Lack of Social Support Lack/Loss of Employment Psychotic Disorder Schizoaffective Disorder Single Unstable Living Situation Homicide/violence risk Answers: Paranoid Ideation factors: Current Suicidal Answers: No Ideation? Current Suicidal Ideation Answers: No in the Past 48 Hours? Current Suicidal Ideation Answers: No in the Past Month? Current Suicidal Answers: No Ideation, Worst Ever? Suicide Internal Answers: Maria Esther with Stress Protective Factors: Suicide External Answers: Positive Therapeutic Protective Factors: Relationships Ranking of patient's Answers: Low suicidal risk: Ranking of patient's Answers: Low homicidal risk: TLC Evaluation - Wrap-up BDI Total Score: 0 BDI Question #2 Score: 0 BDI Question #9 Score: 0 BSS Total Score: 0 AXIS I Diagnosis (include DSM-V and ICD-10 codes), must also be entered in [employer], which is the source of truth. Notes: SCHIZOAFFECTIVE DISORDER, BIPOLAR TYPE 295.70 (F25.0) PT REPORTED HE IS UNABLE TO COMPLETE BDI Evaluation End Date and 02/19/2018 07:15 PM Time (HH:MM): Date Signed: 02/19/2018 07:51 PM Electronically Signed By:Adilson Chaudhry TLC Discharge Disposition TLC Discharge Disposition Disposition: Answers: Admit Disposition Notes: Notes: In consultation with [facility] ED physician Marvin Banegas MD, and on-call psychiatrist, Vincent So MD, both concurred that pt appeared appear to meet 27-65 criteria requiring psychiatric hospitalization as pt appears to be to gravely disabled due to a mental illness condition. For inpatient Judah Kaur admission, the following psychiatrist agreed to accept patient for admission to [facility] Date and time M1 hold 02/19/2018 02:30 PM vacated (time format is hh:mm): Type of Hold: Answers: M1/72-hour Hold Hold initiated by: Answers: ED Physician Date Signed: 02/19/2018 08:11 PM Electronically Signed By:Adilson Chaudhry Behavioral Health Master Treatment Plan Master Treatment Plan Master Treatment Plan Answers: Mood Instability with for: Psychosis Date: 02/20/2018 Diagnosis on Admission: Schizoaffective Disorder Expected length of stay: 3-5 Days Reason for admission: Notes: 47 year old male, with a history of schizophrenia, paranoid type, and is an open client at [facility]. Per [facility] report "Pt. was recently discharged from a week ago, and is not taking any medications, doen't know what was prescribed, and that has them. Patient's stated presenting problems: Notes: I don't know. Been living in my van for almost a year. Patient's goals for treatment: Notes: To slow down a bit Patient's strengths: Notes: Very detail oriented Identify supports outside of hospital: Notes: Haven't been keeping in contact with my friends Discharge criteria: Notes: Patient will demonstrate more stable mood by discharge Initial disposition plan/considerations: Notes: Get skills for work Master Treatment Plan Required Signatures Psychiatrist signature: Answers: Vincent So MD: RN on-shift signature: Answers: RN: Patient signature: Answers: Patient: Date Signed: 02/20/2018 09:26 AM Electronically Signed By:Martha Hollins [facility] Discharge Planning Note Notes Note: Notes: CC speaks to client briefly during check-in. Client presents as un-clean, more focused and lucid than previous admittions; however, nonsensical at times with a restricted affect. CC will try to set client up with [facility] for when he is discharging. Client is appropriate on the unit. Date Signed: 02/21/2018 12:27 PM Electronically Signed By:Alex Page [facility] CM Progress Note CM Note CM Note Notes: Pt.'s court date for trespassing has been moved to Wednesday03/01/2018 at 8:30am with [facility] [address]. Date Signed: 02/21/2018 01:07 PM Electronically Signed By:Martha Hollins [facility] Discharge Planning Note Notes Note: Notes: CC re faxed request to [facility] for follow up appt time and date for later this week or next. Date Signed: 02/21/2018 02:29 PM Electronically Signed By:Alex Page Behavioral Health Discharge Planning Note Notes Note: Notes: CC speaks to client briefly during check-in. Client is improving and presents as becoming more stable and goal oriented. Date Signed: 02/22/2018 02:00 PM Electronically Signed By:Alex Page Behavioral Health Discharge Planning Note Notes Note: Notes: CC speaks to client during check-in. Client denies any feelings of anxiety, depression, AVH and/or S/I-H/I. Additionally, client suggests having future goals "working with a friend(s) in [place]; thus, client presents as goal oriented, clearer than previous days, affect appropriate to situation. Moreover, all necessary discharge follow up care/plans are placed in client's discharge checklist and listed below. Follow up with: [facility] [address] [place] [address] Intake Appt: WednesdayFebruary 28 (02/28/18) at 8:30am [address] [phone] Must coordinate entry prior to discharge [facility] to [facility] [address], [place] [phone] Must arrive prior to 3:30pm Date Signed: 02/23/2018 09:22 AM Electronically Signed By:Alex Page Behavioral Health Discharge Planning Note Notes Note: Notes: CC spoke to Provider, who noted that client will be discharging today. CC will provide a bus ticket and additional resources listed below. Client presents as being at baseline, etc.* Follow up with: [facility] [address] [place] [address] Intake Appt: WednesdayFebruary 28 (02/28/18) at 8:30am [facility] [address] [place], [place] [phone] Must coordinate entry prior to discharge [facility] [address], [place] [phone] Must arrive prior to 3:30pm [employer] Chapters/Support Groups Please note: DBS[employer] chapters are volunteer-run and many of the numbers listed are personal phone numbers. Due to this, please be considerate of the time of day you are calling. Also, please remember these are not crisis lines. If you are in need of emergency assistance, please call 911 or [phone]. When contacting chapters via email, please put 'DBSA' in the subject line. [facility] Contact 1: Information Line Email: [email or web address] Website: [email or web address] [email or web address] [place] Contact 1: Information Line Email: [email or web address] Website: [email or web address] Date Signed: 02/24/2018 10:27 AM Electronically Signed By:Alex Page Intervention Information
== END 2018-02-24 15:30 | disposition home or self-care (01) | DRG 885 ==
LOC: BBEH 21:10
PROVIDERS: ADMIT Psychiatry & Neurology Psychiatry; ATTEND Psychiatry & Neurology Psychiatry
DX: F20.0 Paranoid schizophrenia (principal); Z76.5 Malingerer [conscious simulation]; B00.9 Herpesviral infection, unspecified; T43.506A Underdosing of unspecified antipsychotics and neuroleptics, initial encounter; Z98.1 Arthrodesis status; Z59.0 Homelessness; M79.1 Myalgia
CPT/HCPCS: 80305; G0480

== ENCOUNTER 2018-05-27 23:51 | Emergency (ER) | payer OTHER, MEDICAID ==
[2018-05-28 00:06] VITALS: BP 147/90
--- NOTE | 2018-05-28 00:09 | EDPHY ---
H & P Stated Complaint: Med clear for long term Time Seen by Provider: 05/27/18 23:54 HPI/ROS: Chief complaint: Medical clearance for long term History of present illness: This is a 47-year-old male brought to the emergency department by police for evaluation prior to going to long term. Police report they found him standing over his van. He did not appear to be moving. They felt this was suspicious and approach the patient. Ultimately was determined that the patient had outstanding warrants and he was arrested. He was brought here because he was not speaking appropriately to them. On my evaluation initially he will not speak. However after spending a great deal of time with him and calm we speaking with him he started to talk to me. He was talking appropriately. He states he is feeling okay. He has been mildly ill with respiratory symptoms. No injury. No homicidal or suicidal ideation. Review of systems: A 10 point review of systems was obtained and other than described above was negative - Personal History Current Tetanus/Diphtheria Vaccine: Unsure Current Tetanus Diphtheria and Acellular Pertussis (TDAP): Unsure - Medical/Surgical History Hx Asthma: No Hx Chronic Respiratory Disease: No Hx Diabetes: No Hx Cardiac Disease: No Hx Renal Disease: No Hx Cirrhosis: No Hx Alcoholism: No Hx HIV/AIDS: No Hx Splenectomy or Spleen Trauma: No Other PMH: bipolar, schizoaffective, cervical fusion c5/6, herpes simplex, anxiety, ETOH and Cocain use, KNEE AND HAND SURGERIES - Social History Smoking Status: Never smoked - Physical Exam Exam: General Appearance: Alert, nontoxic. Eyes: Pupils equal and round no pallor or injection. ENT, Mouth: Mucous membranes moist. Respiratory: There are no retractions, lungs are clear to auscultation. Cardiovascular: Regular rate and rhythm. Gastrointestinal: Abdomen is soft and non tender, no masses, bowel sounds normal. Neurological: Alert. Cranial nerves 2-12 grossly intact. Strength and sensation intact and symmetrical. Pronator drift negative. Ambulating without difficulty. Skin: Warm and dry, no rashes. Musculoskeletal: Neck is supple non tender. Extremities are symmetrical, full range of motion. Psychiatric: Patient appears very anxious. Constitutional: Initial Vital Signs Temperature (C) 36.6 C 05/28/18 00:04 Heart Rate 85 05/28/18 00:04 Respiratory Rate 16 05/28/18 00:04 Blood Pressure 147/90 H 05/28/18 00:04 O2 Sat (%) 95 05/28/18 00:04 O2 Delivery Mode Room Air Allergies/Adverse Reactions: No Known Allergies Allergy (Verified 05/28/18 00:03) Home Medications: Medication Instructions Recorded NK [No Known Home Meds] 02/19/18 Medical Decision Making ED Course/Re-evaluation: Patient seen under the supervision of my secondary supervising physician Dr. Jeffery Carrasquillo. Patient is brought to the emergency department for medical clearance to go to long term. After spending some time with this patient building report he started to speak to me. He is speaking appropriately. Other than complaint of a mild respiratory illness he has no other complaints. His physical exam is benign including a nonfocal neurologic exam. I have reviewed his previous medical records which include psychiatric visits with similar type behavior. I believe he is appropriate for discharge. He is discharged with the police. Upon being released from police custody I have asked him to follow up with [facility] and a primary care doctor and have provided referral information to be given to him. Differential Diagnosis: Included but not limited to substance abuse, acute psychosis, schizophrenia, bipolar Departure - Departure Disposition: Law Enforcement/Court/Half-Way Clinical Impression: Schizophrenia, disorganized Condition: Good Instructions: Schizophrenia (ED) Additional Instructions: Patient is medically cleared to go to long term Upon release he should follow up with a primary care doctor and [facility] Referrals: NONE *PRIMARY CARE P,. [Primary Care Provider] - As per Instructions [facility],. [Clinic] - As per Instructions [facility]. [Clinic] - As per Instructions
== END 2018-05-28 00:22 ==
DX: F20.1 Disorganized schizophrenia (principal)